=== PATIENT | male | born 1960 | race Caucasian/White ===

== ENCOUNTER 2016-03-24 15:26 | Emergency (ER) | payer BC ==
[2014-12-11 17:31] VITALS: BMI 26.5
[~2016-03-24 15:26] MED LIST: ATIVAN0.5 MG PO; BACTROBAN NASAL1 GM NASAL; BUSPAR 15 MG TA15 MG PO; CARDURA2 MG PO; CATAPRES0.1 MG PO; CELEXA40 MG PO; COZAAR100 MG PO; ELIQUIS2.5 MG PO; GLUCOPHAGE500 MG PO; HYDROCHLOROTHIA25 MG PO; MS CONTIN30 MG PO; NAPROSYN500 MG PO; NORVASC10 MG PO; OXYCODONE HCL5 MG PO; PLAVIX75 MG PO; ZYLOPRIM300 MG PO
[2016-03-24 15:59] LABS: BASOPHILS 0.5 % (0.0-2.0); HEMOGLOBIN 11.9 g/dL (13.5-17.5); IMMATURE GRANULOCYTES 0.2 % (0-5); LYMPHOCYTES 20.2 % (15-50); MCH 26.2 pg (26.0-34.0); MCV 76.9 fL (80.0-100.0); MEAN PLATELET VOLUME 9.1 fL (7.4-10.4); MONOCYTES 6.6 % (2-11); NEUTROPHILS 70.5 % (40-80); PLATELET COUNT 203 10x3/uL (130-400); RBC 4.55 10x6/uL (4.20-6.10)
[2016-03-24 16:37] LABS: ALKALINE PHOSPHATASE 69 U/L (46-116); ALT (SGPT) 13 U/L (10-68); BILIRUBIN - TOTAL 0.58 mg/dL (0.2-1.3); CALC OSMOLALITY 282 mosm/kg (275-300); CALCIUM 9.4 mg/dL (8.5-10.1); CARBON DIOXIDE 29.3 mmol/L (21.0-32.0); CHLORIDE - SERUM 103 mmol/L (98-107); CREATININE - SERUM 1.4 mg/dL (0.6-1.3); POTASSIUM - SERUM 3.5 mmol/L (3.5-5.1); PROTEIN - SERUM 7.5 g/dL (6.4-8.2); SODIUM 141 mmol/L (136-145); UREA NITROGEN 12 mg/dL (7-18); eGFR NON AFRICAN AMERICAN 56 mL/min (90-120)
[2016-03-24 16:47] LABS: CHOL - HDL RATIO 3.5 ratio (2.3-4.9); CHOLESTEROL, TOTAL 151 mg/dL (0-200); CKMB 0.5 U/L (0.0-3.6); CREATINE KINASE 50 UL (21-232); GLUCOSE 132 mg/dL (74-106); HDL CHOLESTEROL 43 mg/dL (32-96); LDL CHOLESTEROL 87 mg/dL (0-100); TRIGLYCERIDE 106 mg/dL (30-200)
[2016-03-24 16:48] LABS: TROPONIN-I < 0.017 ng/mL (0.000-0.060)
== END 2016-03-24 18:36 | disposition home or self-care (01) ==
LOC: D.ER 15:26
PROVIDERS: Emergency Medicine
DX: R07.9 Chest pain, unspecified (principal); I25.10 Atherosclerotic heart disease of native coronary artery without angina pectoris; F41.9 Anxiety disorder, unspecified; D64.9 Anemia, unspecified; S37.009A Unspecified injury of unspecified kidney, initial encounter; X58.XXXA Exposure to other specified factors, initial encounter; Y93.89 Activity, other specified; Y92.89 Other specified places as the place of occurrence of the external cause; I10 Essential (primary) hypertension; E11.9 Type 2 diabetes mellitus without complications

== ENCOUNTER 2016-04-15 13:43 | Observation (INO) | payer BC ==
[~2016-04-15] VITALS: Ht 188 cm; Wt 91.2 kg
--- NOTE | ~2016-04-15 | HEMODYNAMI ---
PATIENT:JAELYN BAKER MEDICAL RECORD: [id number] : 64 [id number] ADMISSION DATE: 04/15/16 Generatedon:04/16/20168:09 Patient name: JAELYN BAKER Patient #: [id number] SSN: [id number] : 1960 Date of study: 04/16/2016 Page: Of Hemodynamic Procedure Report Patient Data Patient Demographics Procedure consent was obtained First Name: JAELYN Gender: Male Last Name: OLIVIA : 1960 [facility] Initial: HAL Age: 56 year(s) Patient #: [id number] Race: SSN: [id number] Additional ID: [id number] Contact details Address: [address] [place] [address] COURT State: [place] City: [place] Zip code: [address] Admission Admission Data Admission Date: 04/15/2016 Admission Time: 17:03 Arrival Date: 04/15/2016 Arrival Time: 17:03 Admit Source: Other Insurance Payor: Private Room #: [id number] health insurance Procedure Procedure Types Cath Procedure Diagnostic Procedure [facility] w/Coronaries PCI Procedure Coronary Stent Initial Miscellaneous Procedures Moderate Sedation up to 30 minutes Procedure Description Procedure Date Procedure Date: 04/16/2016 Procedure Start Time: 7:53 Procedure End Time: 8:06 Procedure Staff Name Function Hallie García RT Scrub Tom Evans RN Nurse Hayden Collado MD Performing Physician Erika Lea RT Monitor Procedure Data Cath Procedure Fluoroscopy Diagnostic fluoroscopy Total fluoroscopy Time: 2.8 time: 2.8 min min Diagnostic fluoroscopy Total fluoroscopy dose: 466 dose: 466 mGy mGy Contrast Material Contrast Material Type Amount (ml) Isovue 300 64 Entry Location Entry Primary Successful Side Size Upsize Upsize Entry Closure Mehta ccessful Closure Location (Fr) 1 (Fr) 2 (Fr) Remarks Device Remarks Radial Right 6 Fr Mechanical artery Short Compression Estimated blood loss: 10 ml Diagnostic catheters Device Type Used For End Catheter Placement Cordis RBL 4 catheter (NO LV Angiography CHARGE) Cordis RBL 4 catheter (NO Right Coronary CHARGE) Angiography Procedure Complications No complications Procedure Medications Medication Administration Route Dosage Oxygen NC 2 l/min Lidocaine 2% added to field 20 Heparin Flush Bag added to field 2 bags (1000units/500ml NS) 0.9% NaCl I.V. 100 ml/hr Versed I.V. 1 mg Fentanyl I.V. 50 mcg Zofran I.V. 4 mg Versed I.V. 1 mg Fentanyl I.V. 50 mcg Radial Cocktail I.A. 1 syringe (Verapomil 2mg/Nitro 400mcg/Heparin 1500units) Versed I.V. 1 mg Fentanyl I.V. 50 mcg Heparin Bolus I.V. 4000 units Integrilin (Bolus I.V. 8.5 ml 2mg/ml) Versed I.V. 1 mg Fentanyl I.V. 50 mcg Hemodynamics Rest Heart Rate: 46 (bpm) Snapshots Pre Cath Intra NCS Post Cath Vital Signs Time Heart Resp SPO2 NIBP (mmHg) Rhythm Pain Sedation Rate (ipm) (%) Status Level (bpm) 7:39:18 46 15 100 163/100(121) NSR 0 (11) 10(A) , No pain 7:44:32 46 16 100 174/84(131) NSR 0 (11) 10(A) , No pain 7:48:51 42 16 99 144/88(104) NSR 0 (11) 10(A) , No pain 7:54:06 47 15 99 132/81(94) NSR 0 (11) 10(A) , No pain 7:58:22 63 15 97 124/68(90) NSR 0 (11) 9(A) , No pain 8:02:36 57 16 97 125/68(88) NSR 0 (11) 9(A) , No pain 8:06:50 53 16 99 126/72(92) NSR 0 (11) 10(A) , No pain Medications Time Medication Route Dose Verified Delivered Reason Notes Effectiveness by by 7:42:34 Zofran I.V. 4 mg Hayden Santos Per physician pt Tobias Evans RN states vomits with sedation 7:43:14 Oxygen NC 2 l/min Hayden Santos used for Tobias Evans RN procedure 7:43:21 Lidocaine 2% added 20ml Hayden Blake for local to vial Tobias Collado MD anesthetic field 7:43:27 Heparin Flush added 2 bags Hayden Blake used for Bag to Tobias Collado MD procedure (1000units/500ml field NS) 7:43:35 0.9% NaCl I.V. 100 Hayden Santos Per physician ml/hr Tobias Evans RN 7:46:18 Versed I.V. 1 mg Hayden Santos for sedation Tobias Evans RN 7:46:24 Fentanyl I.V. 50 mcg Hayden Santos for sedation Tobias Evans RN 7:51:28 Versed I.V. 1 mg Hayden Santos for sedation Tobias Evans RN 7:51:32 Fentanyl I.V. 50 mcg Hayden Santos for sedation Tobias Evans RN 7:54:18 Radial Cocktail I.A. 1 Hayden Blake for (Verapomil syringe Tobias Collado MD vasodilation 2mg/Nitro 400mcg/Hepari 7:54:22 Versed I.V. 1 mg Hayden Santos for sedation Tobias Evasn RN 7:54:26 Fentanyl I.V. 50 mcg Hyaden Santos for sedation Tobias Evans RN 7:56:00 Fentanyl I.V. 50 mcg Hayden Santos for sedation Tobias Evans RN 7:56:58 Versed I.V. 1 mg Hayden Santos for sedation Tobias Evans RN 7:57:51 Heparin Bolus I.V. 4000 Hayden Santos for verif ied units Tobias Evans RN anticoagulation with dr collado 8:00:51 Integrilin I.V. 8.5 ml Hayden Santos for Waste d (Bolus 2mg/ml) Tobias Evans RN antiplatelet 1.5 ml therapy of vial Procedure Log Time Note 7:15:06 Tom Evans RN sent for patient. Start room use. 7:24:48 Informed consent obtained and on chart 7:24:53 Diagnostic Cath Status : Elective 7:25:13 Time tracking: Regular hours 7:25:17 Plan of Care:Hemodynamics will remain stable., Cardiac rhythm will remain stable., Comfort level will be maintained., Respiratory function will remain adequate., Patient/ family verbilizes understanding of procedure., Procedure tolerated without complication., Recovers from procedure without complications.. 7:25:57 Admit Source: Other 7:26:00 Arrival Date: 04/15/2016 5:03:00 PM 7:26:21 Insurance Payor : Private health insurance 7:38:13 Vital chart was started 7:42:23 Patient received from Med II to CCL 2 Alert and oriented. Tansferred to table in Supine position. 7:42:24 Correct patient and procedure confirmed by team. 7:42:24 Warm blankets applied, and michele hugger turned on for patient comfort. 7:42:25 ECG and BP/O2 sat monitors applied to patient. 7:42:26 Baseline sample Acquired. 7:42:30 Rhythm: sinus rhythm 7:42:34 Zofran 4 mg I.V. was given by Tom Evans RN; Per physician; pt states vomits with sedation 7:42:37 Full Disclosure recording started 7:42:42 H&P Date Dictated: 04/16/2016 New H&P dictated by physician.. 7:42:43 Pre-op teaching completed and patient verbalized understanding. 7:42:43 Pre-procedure instructions explained to patient. 7:42:45 Family in waiting room. 7:42:46 Patient NPO since Midnight. 7:42:52 Is the patient allergic to Iodine/contrast media? No. 7:42:53 Is patient on blood thinner?Yes 7:42:53 Was the patient premedicated? No 7:42:56 ACC The patient was administered the following blood thiners within the last 24 hours: ACCPlavix 7:43:04 Patient diabetic? No. 7:43:08 Previous problem with sedation/anesthesia? No ? 7:43:10 Snore? Yes 7:43:11 Sleep apnea? No 7:43:12 Deviated septum? No 7:43:13 Opens mouth fully? Yes 7:43:14 Oxygen 2 l/min NC was given by Tom Evans RN; used for procedure; 7:43:14 Sticks out tongue? Yes 7:43:16 Airway obstruction? No ? 7:43:20 Dentures? Yes in tight 7:43:21 Lidocaine 2% 20ml vial added to field was given by Hayden Collado MD; for local anesthetic; 7:43:23 Pre procedure: right dorsailis pedis pulse 1+ Palpable, but thready & weak; easily obliterated 7:43:27 Patient pain scale 0/10 ?. 7:43:27 Heparin Flush Bag (1000units/500ml NS) 2 bags added to field was given by Hayden Collado MD; used for procedure; 7:43:32 IV patent on arrival in left forearm with 0.9% NaCl at KVO. 7:43:35 0.9% NaCl 100 ml/hr I.V. was given by Tom Evans RN; Per physician; 7:43:37 Lab results completed and on chart. 7:43:41 Right Radial & Right Groin area was prepped with chlora-prep and draped in sterile fashion 7:43:42 Alarms reviewed by R. N. 7:43:43 Sharps counted by scrub and verified by R.N. 7:44:44 --------ALL STOP TIME OUT------ 7:44:46 Final Timeout: patient, procedure, and site verified with staff and physician. All members of the team are in agreement. 7:45:00 Right Radial & Right Groin site verified by team. 7:45:23 Sedation plan: IV Moderate Sedation Versed, Fentanyl 7:45:36 Physical assessment completed. ASA score P 2 - A patient with mild systemic disease as per Hayden Collado MD. 7:46:18 Versed 1 mg I.V. was given by Tom Evans RN; for sedation; 7:46:24 Fentanyl 50 mcg I.V. was given by Tom Evans RN; for sedation; 7:49:37 Use device set Radial Dx 7:49:38 Acist Syringe opened to sterile field. 7:49:39 Medline Cath Pack opened to sterile field. 7:49:40 Terumo 6Fr Slender Glidesheath opened to sterile field. 7:49:40 Bag Decanter opened to sterile field. 7:49:41 Acist Hand Control opened to sterile field. 7:49:41 St Kristofer 260cm J .035 wire opened to sterile field. 7:49:42 Tegaderm 4 x 4 opened to sterile field. 7:49:42 Acist Manifold opened to sterile field. 7:51:28 Versed 1 mg I.V. was given by Tom Evans RN; for sedation; 7:51:32 Fentanyl 50 mcg I.V. was given by Tom Evans RN; for sedation; 7:53:14 Zero performed for pressure channel P1 7:53:24 Baseline sample Acquired. 7:53:30 Procedure started. 7:53:35 Local anesthetic to right radial artery with Lidocaine 2% by Hayden Collado MD.INITIAL ACCESS ONLY 7:53:49 A 6 Fr Short sheath was inserted into the Right Radial artery 7:54:18 A Cordis RBL 4 catheter (NO CHARGE) was advanced over the wire and used for LV Angiography. 7:54:18 Radial Cocktail (Verapomil 2mg/Nitro 400mcg/Heparin 1500units) 1 syringe I.A. was given by Hayden Collado MD; for vasodilation; 7:54:22 Versed 1 mg I.V. was given by Tom Evans RN; for sedation; 7:54:26 Fentanyl 50 mcg I.V. was given by Tom Evans RN; for sedation; 7:55:01 LV gram done using HADDAD 7:55:02 LV hemodynamics recorded. 7:55:07 Injector settings: Ml/sec: 5, Volume: 15, 7:55:11 EF : 55 % 7:56:00 Fentanyl 50 mcg I.V. was given by Tom Evans RN; for sedation; 7:56:02 A Cordis RBL 4 catheter (NO CHARGE) was advanced over the wire and used for Right Coronary Angiography. 7:56:23 Catheter removed. 7:56:38 Cordis 6FR XBLAD 3.5 guide catheter opened to sterile field. 7:56:55 6 Fr XBLAD 3.5 guide catheter was inserted over the wire 7:56:58 Versed 1 mg I.V. was given by Tom Evans RN; for sedation; 7:57:51 Heparin Bolus 4000 units I.V. was given by Tom Evans RN; for anticoagulation; verified with dr collado 7:58:10 MailPix BasixCompak Inflation Kit opened to sterile field. 7:58:11 Tucker Whisper J 300cm 0.014 guide wire opened to sterile field. 7:59:44 Whisper wire advanced. 8:00:51 Integrilin (Bolus 2mg/ml) 8.5 ml I.V. was given by Tom Evans RN; for antiplatelet therapy; Wasted 1.5 ml of vial 8:01:12 Inflation Number: 1 A Medtronic Resolute 2.5 X 22 stent was prepped and advanced across the Mid LAD. The stent was deployed at 15 NARCISO for 0:11 (min:sec). 8:02:05 Wire removed. 8:02:05 Stent catheter was removed intact over wire. 8:02:06 Guide catheter removed. 8:02:14 Sheath removed intact; hemostasis achieved with Mechanical Compression to the Right Radial artery. 8:02:23 Terumo TR Band Standard opened to sterile field. 8:02:26 Procedure ended.(Physican Out) 8:02:40 Fluoroscopy time 02.80 minutes. 8:02:50 Fluoroscopy dose: 466 mGy 8:02:50 Flurop Dose total: 466 8:02:54 Contrast amount:Isovue 300 64ml. 8:02:55 Sharps counted by scrub and verified by R.N. 8:02:59 TR band inflated with 12cc of air. 8:03:00 Insertion/operative site no bleeding no hematoma. 8:03:13 Post right radial artery:stable, clean and dry 8:03:15 Post Procedure Pulses reassessed and unchanged 8:03:18 Post-procedure physical assessment completed. ASA score P 2 - A patient with mild systemic disease as per Hayden Collado MD. 8:03:21 Post procedure rhythm: unchanged. 8:03:23 Estimated blood loss: 10 ml 8:03:24 Post procedure instruction explained to patient.Patient verbalizes understanding. 8:03:25 Patient needs reinforcement of post procedure teaching. 8:03:38 Procedure type changed to Cath procedure, Diagnostic procedure, LHC, LHC w/Coronaries, PCI procedure, Coronary Stent Initial, Miscellaneous Procedures, Moderate Sedation up to 30 minutes 8:03:46 Procedure Complication : No complications 8:03:50 See physician's report for complete and final results. 8:06:30 Procedure and supply charges have been captured, reviewed, submitted and are correct. 8:06:32 Vital chart was stopped 8:06:36 Report given to PCU. 8:06:39 Patient transfered to PCU with Bed. 8:06:51 Full Disclosure recording stopped 8:06:51 Procedure ended. 8:06:56 End room use (Document Last) Intervention Summary Intervention Notes Time ActionType Lesion and Equipment Action# Pressure Duration Attributes Used 8:01:12 Place stent Mid LAD Medtronic 1 15 00:12 Resolute 2.5 X 22 stent Device Usage Item Name Manufacture Quantity Catalog Hospital Part Current Minimal Lot# / Number Charge Number Stock Stock Serial# Code Acist Acist 1 64351 047506 174547 324001 20 Syringe Medical Systems Inc Medline Cardinal 1 [id number] 195256 02929 027012 5 Cath Pack Health Bag Microtek 1 2002S 297518 74164 162870 5 Decanter Medical Inc. Terumo 6Fr Terumo 1 [id number] 117641 726706 607248 [address] Krist[address] St Kristofer 1 810359 255556 045892 223309 30 260cm J .035 wire Acist Hand Acist 1 28927 491662 922039 955891 5 Control Medical Systems Inc Acist Acist 1 60723 298876 190614 010557 5 Manifold Medical Systems Inc Tegaderm 4 3M 1 1626W 373624 715364 375332 5 x 4 Cordis RBL Cardinal 1 [id number] 349763 356995 5 4 catheter Health (NO CHARGE) Cordis 6FR Cardinal 1 [id number] 519659 604709 513813 10 XBLAD 3.5 Health guide catheter Merit Merit 1 [id number] 149776 568812 211729 15 BasixCompak Medical Inflation Kit Tucker Tucker 1 [id number] 889775 640696 335671 5 Whisper J Vascular 300cm 0.014 guide wire Medtronic Medtronic 1 [id number] 660958 426066 3 [id number] Resolute 2.5 X 22 stent Terumo TR Terumo 1 [id number] 066447 906566 631730 40 Band Standard Signature Audit [place] Stage Time Signature Unsigned Intra-Procedure 04/16/2016 Erika 8:09:17 AM Counts RT(R) Signatures Monitor : Erika Signature : Counts RT Date : Time : [id number] [place] [address]
[2016-04-15 14:16] LABS: BASOPHILS 0.4 % (0.0-2.0); EOSINOPHILS 1.5 % (0-7); HEMATOCRIT 32.1 % (42.0-54.0); HEMOGLOBIN 10.8 g/dL (13.5-17.5); IMMATURE GRANULOCYTES 0.2 % (0-5); MCH 26.2 pg (26.0-34.0); MCHC 33.6 g/dL (31.0-37.0); MCV 77.9 fL (80.0-100.0); MEAN PLATELET VOLUME 9.3 fL (7.4-10.4); MONOCYTES 5.7 % (2-11); NEUTROPHILS 67.2 % (40-80); PLATELET COUNT 195 10x3/uL (130-400); RBC 4.12 10x6/uL (4.20-6.10); RDW 14.8 % (11.5-14.5); WBC 4.8 10x3/uL (4.8-10.8)
[2016-04-15 14:51] LABS: ALBUMIN 3.8 g/dL (3.4-5.0); ALKALINE PHOSPHATASE 63 U/L (46-116); ALT (SGPT) 17 U/L (10-68); CALC OSMOLALITY 283 mosm/kg (275-300); CALCIUM 8.2 mg/dL (8.5-10.1); CARBON DIOXIDE 25.9 mmol/L (21.0-32.0); CHLORIDE - SERUM 101 mmol/L (98-107); CREATININE - SERUM 1.2 mg/dL (0.6-1.3); POTASSIUM - SERUM 3.3 mmol/L (3.5-5.1); PROTEIN - SERUM 6.6 g/dL (6.4-8.2); SODIUM 140 mmol/L (136-145); UREA NITROGEN 13 mg/dL (7-18); eGFR NON AFRICAN AMERICAN 67 mL/min (90-120)
[2016-04-15 15:03] LABS: CHOL - HDL RATIO 3.3 ratio (2.3-4.9); CHOLESTEROL, TOTAL 148 mg/dL (0-200); CKMB 0.5 U/L (0.0-3.6); CREATINE KINASE 48 UL (21-232); HDL CHOLESTEROL 45 mg/dL (32-96); LDL CHOLESTEROL 81 mg/dL (0-100); LDL-HDL RATIO 1.8 ratio (1.5-3.5); TRIGLYCERIDE 113 mg/dL (30-200); TROPONIN-I < 0.017 ng/mL (0.000-0.060)
[2016-04-15 15:09] LABS: GLUCOSE 183 mg/dL (74-106)
--- NOTE | 2016-04-15 17:42 | NUR ---
TRANSFER FROM ER BY W/C. GILINTED TO ROOM. CALL LIGHT IN REACH. WILL CONT. PLAN OF CARE.
[2016-04-15 18:01] VITALS: BP 154/82; BMI 24.4
[2016-04-15] MEDS ORDERED: NITROSTAT0.4 MG SL (18:13)
[2016-04-15] MEDS ORDERED: KLONOPIN0.5 MG PO (18:14)
--- NOTE | 2016-04-15 19:53 | NUR ---
RESUMED CARE OF PT, LYING IN BED RESPIRATIONS EVEN AND UNLABORED ON 2LPM VIA NC. LEFT AC INFUSING NS @ 75. MORPHINE 4MG GIVEN FOR CHEST PAIN 7:10. 51 SB ON TELEMETRY. CALL LIGHT IN REACH. WILL CONTINUE TO MONITOR. SEE NURSE ASSESSMENT.
[2016-04-15 21:56] VITALS: BP 176/89
--- NOTE | 2016-04-15 23:15 | NUR ---
MORPHINE 4MG IVP FOR CHEST PAIN 6:10. PLAN OF CARE DISCUSSED. WILL CONTINUE TO MONITOR.
--- NOTE | 2016-04-16 00:13 | NUR ---
COMMUNICATIONS PLANNER AT BEDSIDE TO OBTAIN VITALS, CALL LIGHT IN REACH. WILL CONTINUE WITH PLAN OF CARE.
[2016-04-16 01:17] VITALS: BP 170/104
[2016-04-16 05:11] VITALS: BP 173/97
--- NOTE | 2016-04-16 06:04 | NUR ---
NO CHANGES FROM PREVIOUS ASSESSMENT, REMAINS NPO. CALL LIGHT IN REACH. WILL CONTINUE TO MONITOR.
[2016-04-16 07:03] LABS: BASOPHILS 0.7 % (0.0-2.0); EOSINOPHILS 5.4 % (0-7); HEMATOCRIT 33.3 % (42.0-54.0); HEMOGLOBIN 11.1 g/dL (13.5-17.5); IMMATURE GRANULOCYTES 0.2 % (0-5); LYMPHOCYTES 40.2 % (15-50); MCH 26.1 pg (26.0-34.0); MCHC 33.3 g/dL (31.0-37.0); MCV 78.4 fL (80.0-100.0); MEAN PLATELET VOLUME 10.2 fL (7.4-10.4); MONOCYTES 7.4 % (2-11); NEUTROPHILS 46.1 % (40-80); PLATELET COUNT 219 10x3/uL (130-400); RBC 4.25 10x6/uL (4.20-6.10); RDW 14.9 % (11.5-14.5); WBC 5.4 10x3/uL (4.8-10.8)
[2016-04-16 07:08] LABS: ANION GAP 13.7 mmol/L (8-16); CALCIUM 8.4 mg/dL (8.5-10.1); CARBON DIOXIDE 27.8 mmol/L (21.0-32.0); CREATININE - SERUM 1.2 mg/dL (0.6-1.3); POTASSIUM - SERUM 3.5 mmol/L (3.5-5.1)
--- NOTE | 2016-04-16 07:30 | NUR ---
PRE-OPS GIVEN. TO OCCUPATIONAL THERAPIST ASSISTANTS BY BED.
[2016-04-16 07:39] VITALS: BP 173/88
--- NOTE | 2016-04-16 08:26 | NUR ---
BACK FROM MUSIC THEORY PROFESSOR. VS WNL. RIGHT WRIST STABLE WITH TR BAND INTACT. WILL MONITOR.
--- NOTE | 2016-04-16 11:52 | NUR ---
TR BAND DCD WOTHOUT BLEEDING OR HEMATOMA NOTED. C/O C/P. DR. BOLAND NOTIFIED. [place] ORDERED X 1. WILL MONITOR.
[2016-04-16 12:11] VITALS: BP 128/71
[2016-04-16 13:03] VITALS: Ht 188 cm; Wt 91.2 kg
[2016-04-16] MEDS ORDERED: ASPIRIN81 MG PO (13:25)
[2016-04-16] MEDS ORDERED: PLAVIX75 MG PO (13:25)
--- NOTE | 2016-04-16 14:06 | NUR ---
IV AND TELEMETRY DCD. DC PLANSGIVEN. UNDERSTANDING VOICED. ESCORTED TO CAR BYW/C.
--- NOTE | 2016-04-27 10:08 | OP ---
PATIENT NAME: JAELYN BAKER MEDICAL RECORD: [id number] :64 LOCATION:D.M2 D.2119 ADMISSION DATE:04/15/16 SURGEON: SHIRAZ BOLAND MD DATE OF OPERATION: 04/16/2016 PROCEDURES: 1. PTCA stent LAD. 2. Left heart catheterization. 3. Selective coronary angiography. 4. Left ventriculogram. INDICATION: Angina and coronary artery disease. PROCEDURE IN DETAIL: After informed consent was obtained and after a detailed explanation of the risks, benefits as well as alternative therapies, the patient elected to proceed with angiogram and angioplasty. The right femoral area was prepped and draped in normal sterile fashion. The right radial area was prepped and draped in normal sterile fashion. The right radial artery was cannulated via modified Seldinger technique with placement of 6-Yoruba sheath. All catheters exchanged through this sheath. FINDINGS: Left ventriculogram was performed in the standard 30-degree HADDAD view reveals good cardiac wall motion throughout all segments. Overall ejection fraction estimated 60%. SELECTIVE CORONARY ANGIOGRAPHY: 1. Left main showed no significant angiographic disease. 2. Left anterior descending has a previously placed stent that has a 90% to 95% in-stent restenosis. 3. Left circumflex shows moderate irregularities, but no flow-limiting stenosis. 4. Right coronary is very large, dominant with no significant disease. PTCA STENT OF THE LAD: The stent used was a 2.5 x 22 mm Resolute. Result was 0% residual stenosis. OVERALL IMPRESSION: Successful percutaneous transluminal coronary angioplasty stent of the left anterior descending going from 95% initial stenosis to 0% residual. TRANSINT:[id number] Voice Confirmation ID: [id number] DOCUMENT ID: [id number] SHIRAZ BOLAND MD at 1008 CC: [id number] DICTATION DATE: 04/16/16 0807 USER EXPERIENCE ARCHITECT: 04/16/16 1629 DIS IN 04/16/16 [address] [place] [address]
--- NOTE | 2016-04-27 10:08 | DS ---
PATIENT:JAELYN BAKER :64 MEDICAL RECORD: [id number] DISCHARGE SUMMARY ADMISSION DATE: 04/15/16 DISCHARGE DATE: 04/16/16 DISCHARGE DIAGNOSES: 1. Unstable angina. 2. Coronary artery disease. 3. Percutaneous transluminal coronary angioplasty stent of left anterior descending this admission. HOSPITAL COURSE: This is a gentleman who presents with anginal symptomatology and found to have critical disease of the LAD, underwent successful PTCA stent of the LAD, had an uneventful postop course, no further angina and discharged home with the addition of aspirin and Plavix to his medical regimen. He will follow up with [facility] in 1 month. TRANSINT:[id number] Voice Confirmation ID: [id number] DOCUMENT ID: [id number] SHIRAZ BOLAND MD at 1008 CC: [id number] DICTATION DATE: 04/16/16 0805 CERTIFIED MEDICAL CODER: 04/16/16 2225 DIS IN 04/16/16 [id number] [place] [address]
--- NOTE | 2016-04-27 10:08 | CN ---
PATIENT NAME:JAELYN BAKER MEDICAL RECORD: [id number] : 64 LOCATION:D. D.2119 ADMIT DATE: 04/15/16 ACCOUNT: [id number] CONSULTING PHYSICIAN: SHIRAZ BOLAND MD REFERRING PHYSICIAN: CIERA RICKETTS MD DATE OF CONSULTATION: 04/16/2016 ADMITTING DIAGNOSES: 1. Stable angina. 2. Coronary artery disease. 3. Previous percutaneous transluminal coronary angioplasty stent. 4. Hypertension. HISTORY OF PRESENT ILLNESS: This is a gentleman with a past history of coronary artery disease with previous PTCA stent 2 years ago, who has been having 1 month of increasing chest pain, has dramatically increased over the last few days, he is having rest angina. His EKG is with nonspecific ST-T abnormalities. Troponin is normal. Continues to have episodes of pain compatible with angina just like that of his previous angina prior to the PTCA stent. PHYSICAL EXAMINATION: GENERAL APPEARANCE: Well-nourished, well-developed, appears stated age. Level of distress, comfortable. PSYCHIATRIC: Mental status, alert, normal affect. Orientation, oriented to time, place and person. EYES: Lids and conjunctiva, noninjected. No discharge, no pallor. ENT: Lips, teeth, gums, normal dentition. Oropharynx, no cyanosis, no pallor. NECK: Carotid arteries, bilateral normal upstroke, no bruits, no thrills. JUGULAR VEINS: No jugular venous pressure or distention. CERVICAL LYMPH NODES: Nontender, nonenlarged. THYROID: Not enlarged. Nontender. No nodules. LUNGS: Respiratory effort, unlabored. CHEST: Normal curvature. No thoracic deformity. No chest wall tenderness. Percussion, resonant. Auscultation, clear. No wheezes, no rales, no rhonchi. CARDIOVASCULAR: Precordial exam, nondisplaced. No heaves or pericardial thrills. Rate and rhythm, regular. Heart sounds, normal S1, normal S2. No S3, no gallop, no rub. Systolic murmur, not heard. Diastolic murmur, not heard. EXTREMITIES: No cyanosis, no edema. Peripheral pulses, full and equal in all extremities, except as noted. No bruits appreciated. ABDOMEN: Soft, nondistended. Normal aorta. No bruit. Nontender. No masses. Liver, nontender, no hepatomegaly. Spleen, nontender, no splenomegaly. MUSCULOSKELETAL: No joint tenderness. No joint swelling. No erythema. NEUROLOGICAL: Normal gait, normal strength, normal tone. SKIN: Warm and dry. REVIEW OF SYSTEMS: The patient reports easy bruising but reports no swollen glands. The patient reports no fever, no night sweats, no significant weight gain, no significant weight loss. No significant exercise tolerance. The patient reports no dry eyes, no irritation, no vision change. Patient reports no difficulty hearing and no ear pain. Patient reports no frequent nose bleeds or nose and sinus problems. Patient reports on arm pain on exertion. No shortness of breath while lying down. No history of heart murmur. Patient reports no cough, no wheezing or coughing up blood. Patient reports no abdominal pain, no vomiting. Normal appetite. No diarrhea and not vomiting blood. No nausea and no constipation. Patient reports no incontinence. No CONSULT REPORT [id number] WHITEJAELYN difficulty urinating. No hematuria. No increased frequency. Patient reports no muscle aches. No weakness, no arthralgias, no back pain. No swelling of the extremities. Patient reports no abnormal mole, no jaundice, no rashes. Reports no loss of consciousness. No weakness and no numbness. No seizures, dizziness, or headaches. The patient reports no depression, no sleep disturbance, feeling safe in a relationship and no alcohol abuse. Patient reports on fatigue. Reports no runny nose or sinus pressure. No itching, no hives, and no frequent sneezing. OVERALL IMPRESSION: Unstable angina, escalating fashion, most likely he has recurrent hemodynamically significant coronary artery disease. We will proceed with coronary angiography. Further care depends upon findings of the angiography. TRANSINT:[id number] Voice Confirmation ID: [id number] DOCUMENT ID: [id number] SHIRAZ BOLAND MD at 1008 CC: [id number] DICTATION DATE: 04/16/16712 ELEVATOR ATTENDANT: 04/16/16 1332 DIS IN 04/16/16 [facility] [address] [id number]
== END 2016-04-16 14:17 | disposition home or self-care (01) ==
LOC: D.ER 13:43 → D.M2 17:03 → OBSVTIME 17:03 → D.M2 04-16 14:17
PROVIDERS: Emergency Medicine; Internal Medicine Interventional Cardiology; ADMIT Emergency Medicine
DX: I25.110 Atherosclerotic heart disease of native coronary artery with unstable angina pectoris (principal); Z95.5 Presence of coronary angioplasty implant and graft; I10 Essential (primary) hypertension; E78.5 Hyperlipidemia, unspecified; E11.9 Type 2 diabetes mellitus without complications; F41.9 Anxiety disorder, unspecified; D63.8 Anemia in other chronic diseases classified elsewhere

== ENCOUNTER 2016-04-17 18:28 | Emergency (ER) | payer BC ==
[2016-04-16 13:03] VITALS: BMI 25.8
[~2016-04-17 18:28] MED LIST changes: +ASPIRIN81 MG PO; +KLONOPIN0.5 MG PO; +NITROSTAT0.4 MG SL
[2016-04-17 19:12] LABS: BASOPHILS 0.6 % (0.0-2.0); EOSINOPHILS 2.9 % (0-7); HEMATOCRIT 33.6 % (42.0-54.0); HEMOGLOBIN 11.3 g/dL (13.5-17.5); LYMPHOCYTES 25.9 % (15-50); MCH 26.2 pg (26.0-34.0); MCHC 33.6 g/dL (31.0-37.0); MEAN PLATELET VOLUME 9.8 fL (7.4-10.4); MONOCYTES 8.6 % (2-11); PLATELET COUNT 225 10x3/uL (130-400); RBC 4.31 10x6/uL (4.20-6.10); RDW 14.5 % (11.5-14.5); WBC 4.9 10x3/uL (4.8-10.8)
[2016-04-17 19:34] LABS: ALBUMIN 3.9 g/dL (3.4-5.0); ALKALINE PHOSPHATASE 63 U/L (46-116); ALT (SGPT) 16 U/L (10-68); BILIRUBIN - TOTAL 0.29 mg/dL (0.2-1.3); CALC OSMOLALITY 283 mosm/kg (275-300); CALCIUM 8.3 mg/dL (8.5-10.1); CARBON DIOXIDE 27.4 mmol/L (21.0-32.0); CHLORIDE - SERUM 104 mmol/L (98-107); CREATININE - SERUM 1.2 mg/dL (0.6-1.3); GLUCOSE 131 mg/dL (74-106); POTASSIUM - SERUM 3.2 mmol/L (3.5-5.1); PROTEIN - SERUM 6.8 g/dL (6.4-8.2); SODIUM 142 mmol/L (136-145); UREA NITROGEN 11 mg/dL (7-18); eGFR NON AFRICAN AMERICAN 67 mL/min (90-120)
[2016-04-17 19:39] LABS: CHOL - HDL RATIO 3.7 ratio (2.3-4.9); CHOLESTEROL, TOTAL 157 mg/dL (0-200); CKMB 0.4 U/L (0.0-3.6); CREATINE KINASE 64 UL (21-232); HDL CHOLESTEROL 42 mg/dL (32-96); LDL CHOLESTEROL 89 mg/dL (0-100); LDL-HDL RATIO 2.1 ratio (1.5-3.5); TRIGLYCERIDE 133 mg/dL (30-200)
[2016-04-17 19:42] LABS: TROPONIN-I < 0.017 ng/mL (0.000-0.060)
== END 2016-04-17 19:55 | disposition home or self-care (01) ==
LOC: D.ER 18:28
PROVIDERS: Emergency Medicine
DX: R07.89 Other chest pain (principal); I25.810 Atherosclerosis of coronary artery bypass graft(s) without angina pectoris; E11.9 Type 2 diabetes mellitus without complications

== ENCOUNTER 2016-04-20 20:28 | Emergency (ER) | payer BC ==
[2016-04-16 13:03] VITALS: BMI 25.8
[2016-04-20 21:29] LABS: BASOPHILS 0.4 % (0.0-2.0); EOSINOPHILS 1.7 % (0-7); HEMATOCRIT 32.7 % (42.0-54.0); HEMOGLOBIN 11.1 g/dL (13.5-17.5); IMMATURE GRANULOCYTES 0.3 % (0-5); LYMPHOCYTES 28.9 % (15-50); MCH 26.4 pg (26.0-34.0); MCHC 33.9 g/dL (31.0-37.0); MCV 77.9 fL (80.0-100.0); MEAN PLATELET VOLUME 9.6 fL (7.4-10.4); MONOCYTES 8.6 % (2-11); NEUTROPHILS 60.1 % (40-80); PLATELET COUNT 214 10x3/uL (130-400); RDW 14.9 % (11.5-14.5); WBC 7.2 10x3/uL (4.8-10.8)
[2016-04-20 21:47] LABS: ALKALINE PHOSPHATASE 56 U/L (46-116); ALT (SGPT) 20 U/L (10-68); BILIRUBIN - TOTAL 0.27 mg/dL (0.2-1.3); CALC OSMOLALITY 286 mosm/kg (275-300); CALCIUM 7.5 mg/dL (8.5-10.1); CARBON DIOXIDE 30.8 mmol/L (21.0-32.0); CHLORIDE - SERUM 103 mmol/L (98-107); CREATININE - SERUM 1.4 mg/dL (0.6-1.3); GLUCOSE 152 mg/dL (74-106); POTASSIUM - SERUM 3.2 mmol/L (3.5-5.1); PROTEIN - SERUM 6.9 g/dL (6.4-8.2); SODIUM 142 mmol/L (136-145); UREA NITROGEN 16 mg/dL (7-18); eGFR NON AFRICAN AMERICAN 56 mL/min (90-120)
[2016-04-20 21:59] LABS: CKMB 5.5 U/L (0.0-3.6); CREATINE KINASE 194 UL (21-232)
[2016-04-20 22:01] LABS: TROPONIN-I < 0.017 ng/mL (0.000-0.060)
== END 2016-04-20 22:55 | disposition home or self-care (01) ==
LOC: D.ER 20:28
PROVIDERS: Emergency Medicine
DX: R07.89 Other chest pain (principal); E11.9 Type 2 diabetes mellitus without complications

== ENCOUNTER 2016-04-25 22:32 | Emergency (ER) | payer BC ==
[2016-04-16 13:03] VITALS: BMI 25.8
[2016-04-25 23:04] LABS: BASOPHILS 0.3 % (0.0-2.0); EOSINOPHILS 6.2 % (0-7); HEMATOCRIT 35.4 % (42.0-54.0); HEMOGLOBIN 11.8 g/dL (13.5-17.5); IMMATURE GRANULOCYTES 0.2 % (0-5); LYMPHOCYTES 27.3 % (15-50); MCH 26.9 pg (26.0-34.0); MCHC 33.3 g/dL (31.0-37.0); MCV 80.6 fL (80.0-100.0); MEAN PLATELET VOLUME 9.2 fL (7.4-10.4); MONOCYTES 9.9 % (2-11); NEUTROPHILS 56.1 % (40-80); RBC 4.39 10x6/uL (4.20-6.10); RDW 14.6 % (11.5-14.5); WBC 6.4 10x3/uL (4.8-10.8)
[2016-04-25 23:08] LABS: PLATELET COUNT 162 10x3/uL (130-400)
[2016-04-25 23:23] LABS: ALBUMIN 3.8 g/dL (3.4-5.0); ANION GAP 12.6 mmol/L (8-16); BILIRUBIN - TOTAL 0.37 mg/dL (0.2-1.3); CALCIUM 8.7 mg/dL (8.5-10.1); CARBON DIOXIDE 28.2 mmol/L (21.0-32.0); CREATININE - SERUM 1.3 mg/dL (0.6-1.3); POTASSIUM - SERUM 3.8 mmol/L (3.5-5.1)
== END 2016-04-26 16:03 | disposition home or self-care (01) ==
LOC: D.ER 22:32
PROVIDERS: Emergency Medicine
DX: R10.11 Right upper quadrant pain (principal); J18.9 Pneumonia, unspecified organism; E11.9 Type 2 diabetes mellitus without complications

== ENCOUNTER 2016-06-14 17:41 | Emergency (ER) | payer BC ==
[2016-04-16 13:03] VITALS: BMI 25.8
[2016-06-14 18:08] LABS: BASOPHILS 0.3 % (0-2); EOSINOPHILS 1.9 % (0-7); HEMATOCRIT 36.1 % (42.0-54.0); HEMOGLOBIN 12.5 g/dL (13.5-17.5); IMMATURE GRANULOCYTES 0.2 % (0-5); MCH 27.8 pg (26.0-34.0); MCHC 34.6 g/dL (31.0-37.0); MCV 80.2 fL (80.0-100.0); MEAN PLATELET VOLUME 9.3 fL (7.4-10.4); MONOCYTES 8.6 % (2-11); RDW 12.9 % (11.5-14.5); WBC 6.3 10x3/uL (4.8-10.8)
[2016-06-14 18:11] LABS: PLATELET COUNT 231 10x3/uL (130-400)
[2016-06-14 18:30] LABS: ALKALINE PHOSPHATASE 77 U/L (46-116); ALT (SGPT) 19 U/L (10-68); BILIRUBIN - TOTAL 0.15 mg/dL (0.2-1.3); CALC OSMOLALITY 282 mosm/kg (275-300); CALCIUM 8.7 mg/dL (8.5-10.1); CARBON DIOXIDE 29.7 mmol/L (21.0-32.0); CHLORIDE - SERUM 105 mmol/L (98-107); CREATININE - SERUM 1.3 mg/dL (0.6-1.3); GLUCOSE 111 mg/dL (74-106); POTASSIUM - SERUM 3.3 mmol/L (3.5-5.1); PROTEIN - SERUM 7.4 g/dL (6.4-8.2); SODIUM 141 mmol/L (136-145); UREA NITROGEN 16 mg/dL (7-18); eGFR NON AFRICAN AMERICAN 61 mL/min (90-120)
[2016-06-14 18:36] LABS: CHOL - HDL RATIO 5.2 ratio (2.3-4.9); CHOLESTEROL, TOTAL 165 mg/dL (0-200); CKMB 0.9 U/L (0.0-3.6); CREATINE KINASE 51 UL (21-232); HDL CHOLESTEROL 32 mg/dL (32-96); LDL CHOLESTEROL 88 mg/dL (0-100); LDL-HDL RATIO 2.8 ratio (1.5-3.5); TRIGLYCERIDE 225 mg/dL (30-200); TROPONIN-I < 0.017 ng/mL (0.000-0.060)
== END 2016-06-14 20:30 | disposition home or self-care (01) ==
LOC: D.ER 17:41
PROVIDERS: Emergency Medicine
DX: R51 Headache (principal); E11.9 Type 2 diabetes mellitus without complications; N28.9 Disorder of kidney and ureter, unspecified

== ENCOUNTER 2017-05-12 15:49 | Emergency (ER) | payer BC ==
[2016-04-16 13:03] VITALS: BMI 25.8
[2017-05-12 17:02] LABS: APPEARANCE CLEAR (CLEAR); BILIRUBIN NEGATIVE (NEGATIVE); COLOR YELLOW (YELLOW); GLUCOSE NEGATIVE (NEGATIVE); KETONE NEGATIVE (NEGATIVE); NITRITE NEGATIVE (NEGATIVE); PROTEIN NEGATIVE (NEGATIVE); UROBILINOGEN NORMAL (NORMAL)
[2017-05-12 17:20] LABS: BASOPHILS 0.3 % (0-2); EOSINOPHILS 1.7 % (0-7); HEMATOCRIT 37.6 % (42.0-54.0); HEMOGLOBIN 12.9 g/dL (13.5-17.5); IMMATURE GRANULOCYTES 0.2 % (0-5); LYMPHOCYTES 20.2 % (15-50); MCH 27.7 pg (26.0-34.0); MCHC 34.3 g/dL (31.0-37.0); MCV 80.9 fL (80.0-100.0); MEAN PLATELET VOLUME 9.1 fL (7.4-10.4); MONOCYTES 6.3 % (2-11); NEUTROPHILS 71.3 % (40-80); RBC 4.65 10x6/uL (4.20-6.10); WBC 6.4 10x3/uL (4.8-10.8)
[2017-05-12 17:35] LABS: PLATELET COUNT 169 10x3/uL (130-400)
[2017-05-12 17:40] LABS: ANION GAP 12.6 mmol/L (8-16); BILIRUBIN - TOTAL 0.62 mg/dL (0.2-1.3); CALCIUM 8.5 mg/dL (8.5-10.1); CARBON DIOXIDE 26.6 mmol/L (21.0-32.0); CREATININE - SERUM 1.3 mg/dL (0.6-1.3); POTASSIUM - SERUM 4.2 mmol/L (3.5-5.1); PROTEIN - SERUM 7.3 g/dL (6.4-8.2)
== END 2017-05-12 20:21 | disposition home or self-care (01) ==
LOC: D.ER 15:49
PROVIDERS: Emergency Medicine
DX: R10.32 Left lower quadrant pain (principal); R10.31 Right lower quadrant pain; K62.5 Hemorrhage of anus and rectum; R11.2 Nausea with vomiting, unspecified; E11.9 Type 2 diabetes mellitus without complications

== ENCOUNTER → 2017-10-15 07:24 | Outpatient (CLI) | payer BC ==
[~2017-10-15] VITALS: Ht 188 cm; Wt 88.6 kg
--- NOTE | ~2017-10-15 | HEMODYNAMI ---
PATIENT:JAELYN BAKER MEDICAL RECORD: [id number] : 64 LOCATION:[facility] ADMISSION DATE: 10/15/17 Generatedon:10/15/201710:18 Patient name: JAELYN BAKER Patient #: [id number] SSN: [id number] : 1960 Date of study: 10/15/2017 Page: Of Hemodynamic Procedure Report Patient Data Patient Demographics Procedure consent was obtained First Name: JAELYN Gender: Male Last Name: OLIVIA : 1960 [facility] Initial: HAL Age: 57 year(s) Patient #: [id number] Race: SSN: [id number] Additional ID: [id number] Contact details [address]: [address] [place] [address] COURT State: [place] City: [place] Zip code: [address] Past Medical History Allergies Allergen Reaction Date Comments Reported Other allergy 10/15/2017 Benadryl Admission Admission Data Admission Date: 10/15/2017 Admission Time: 7:24 Admit Source: Other Lab Results Lab Result Date: 10/15/2017 Lab Result Time: 7:46 Biochemistry Name Units Result Min Max BUN mg/dl 12 --(-*--)-- 7 18 Creatinine mg/dl 1.4 --(----)*- 0.6 1.3 CBC Name Units Result Min Max Hematocrit % 35.9 *-(----)-- 42 54 Hemoglobin g/dl 12.8 -*(----)-- 13.5 17.5 Procedure Procedure Types Cath Procedure Diagnostic Procedure LHC LHC w/Coronaries PCI Procedure Coronary Stent Coronary Stent Initial Procedure Description Procedure Date Procedure Date: 10/15/2017 Procedure Start Time: 10:01 Procedure End Time: 10:15 Procedure Staff Name Function Hayden Collado MD Performing Physician Ross Thomas RT Monitor Darryn Green RT Scrub Tom Evans RN Nurse Devin Townsend RT Instrument Lens Grinder Apprentice Procedure Data Cath Procedure Fluoroscopy Diagnostic fluoroscopy Total fluoroscopy Time: 3.9 time: 3.9 min min Diagnostic fluoroscopy Total fluoroscopy dose: dose: 268.74 mGy 268.74 mGy Contrast Material Contrast Material Type Amount (ml) Isovue 300 95 Entry Location Entry Primary Successful Side Size Upsize Upsize Entry Closure Mehta ccessful Closure Location (Fr) 1 (Fr) 2 (Fr) Remarks Device Remarks Radial Right 6 Fr Mechanical artery Short Compression Estimated blood loss: 10 ml Diagnostic catheters Device Type Used For End Catheter Placement DIAGNOSTIC Coulter 110cm 5 Procedure Fr catheter ([id number]) Procedure Complications No complications Procedure Medications Medication Administration Route Dosage Oxygen etCO2 Nasal cannula 2 l/min Lidocaine 2% added to field 20 Heparin Flush Bag added to field 2 bags (1000units/500ml NS) 0.9% NaCl I.V. 100 ml/hr Radial Cocktail I.A. 1 syringe (Verapomil 2mg/Nitro 400mcg/Heparin 1500units) Versed I.V. 2 mg Fentanyl I.V. 100 mcg Versed I.V. 2 mg Fentanyl I.V. 100 mcg Versed I.V. 2 mg Fentanyl I.V. 100 mcg Heparin Bolus I.V. 5000 units Versed I.V. 2 mg Versed I.V. 2 mg Hemodynamics Rest HGB: 12.8 (g/dl) Heart Rate: 71 (bpm) Snapshots Pre Cath Intra NCS Post Cath Vital Signs Time Heart Resp SPO2 etCO2 NIBP (mmHg) Rhythm Pain Sedation Rate (ipm) (%) (mmHg) Status Level (bpm) 9:32:40 66 20 97 0 138/86(124) NSR 0 (11) 10(A) , No pain 9:36:58 68 10 98 0 138/84(103) NSR 0 (11) 10(A) , No pain 9:41:18 70 15 98 0 146/87(107) NSR 0 (11) 10(A) , No pain 9:45:36 66 16 98 7.5 128/87(99) NSR 0 (11) 10(A) , No pain 9:49:50 68 29 98 29.2 131/89(112) NSR 0 (11) 10(A) , No pain 9:54:08 68 16 97 22.5 132/78(108) NSR 0 (11) 10(A) , No pain 9:58:26 60 20 98 39.8 115/73(108) NSR 0 (11) 10(A) , No pain 10:02:38 64 19 99 48.1 125/78(113) NSR 0 (11) 10(A) , No pain 10:06:54 82 19 97 48.1 139/74(97) NSR 0 (11) 10(A) , No pain 10:11:16 88 14 98 42.8 135/80(108) NSR 0 (11) 10(A) , No pain 10:15:34 85 16 99 43.6 155/84(110) NSR 0 (11) 10(A) , No pain Medications Time Medication Route Dose Verified Delivered Reason Not es Effectiveness by by 9:50:59 Oxygen etCO2 2 l/min Hayden Buffie used for Nasal Tobias Evans RN procedure cannula 9:51:05 Lidocaine 2% added 20ml Hayden Hayden for local to vial Tobias Collado MD anesthetic field 9:51:11 Heparin Flush added 2 bags Haydenjeannine Blake used for Bag to Tobias Collado MD procedure (1000units/500ml field NS) 9:51:20 0.9% NaCl I.V. 100 Hayden Buffie Per physician ml/hr Tobias Evans RN 9:55:29 Versed I.V. 2 mg Hayden Buffie for sedation Tobias Evans RN 9:55:36 Fentanyl I.V. 100 mcg Hayden Buffie for sedation Tobias Evans RN 9:57:27 Versed I.V. 2 mg Hayden Buffie for sedation Tobias Evans RN 9:57:31 Fentanyl I.V. 100 mcg Hayden Buffie for sedation Tobias Evans RN 10:00:17 Versed I.V. 2 mg Hayden Buffie for sedation Tobias Evans RN 10:00:21 Fentanyl I.V. 100 mcg Hayden Buffie for sedation Tobias Evans RN 10:02:48 Radial Cocktail I.A. 1 Hayden Buffie for (Verapomil syringe Tobias Evans RN vasodilation 2mg/Nitro 400mcg/Heparin 1500units) 10:05:51 Heparin Bolus I.V. 5000 Hayden Buffie for francisca ified units Tobias Evans RN anticoagulation with dr collado 10:09:10 Versed I.V. 2 mg Hayden Santos for sedation Tobias Evans RN 10:11:16 Versed I.V. 2 mg Hayden Santos for sedation Tobias Evans woodwind reeds cutter Log Time Note 9:20:46 Informed consent obtained and on chart 9:20:48 Admit Source: Other 9:21:04 Diagnostic Cath status Elective 9:21:06 Devin Townsend RT(R) sent for patient. Start room use. 9:21:14 Time tracking: Regular hours (M-F 7:00 - 5:00) 9:21:17 Plan of Care:Hemodynamics will remain stable., Cardiac rhythm will remain stable., Comfort level will be maintained., Respiratory function will remain adequate., Patient/ family verbilizes understanding of procedure., Procedure tolerated without complication., Recovers from procedure without complications.. 9:21:38 H&P Date Dictated: 10/14/2017 Within 30 days and on chart., H&P Addendum completed by physician on day of procedure. (MUST COMPLETE FOR ALL OUTPATIENTS). 9:22:54 Lab Result : Creatinine 1.4 mg/dl 9:22:54 Lab Result : BUN 12 mg/dl 9:22:54 Lab Result : Hemoglobin 12.8 g/dl 9:22:54 Lab Result : Hematocrit 35.9 % 9:22:58 Lab results completed and on chart. 9:25:20 Patient received from Pre/Post Procedure Room to CCL 3 Alert and oriented. Tansferred to table in Supine position. 9:25:22 Warm blankets applied, and michele hugger turned on for patient comfort. 9:25:22 Correct patient and procedure confirmed by team. 9:25:24 ECG and BP/O2 sat monitors applied to patient. 9:31:30 Vital chart was started 9:41:27 Baseline sample Acquired. 9:41:30 Rhythm: sinus rhythm 9:41:32 Full Disclosure recording started 9:41:32 Pre-procedure instructions explained to patient. 9:41:33 Pre-op teaching completed and patient verbalized understanding. 9:41:34 Family in waiting room. 9:41:35 Patient NPO since Midnight. 9:41:43 Patient allergic to Other allergyBenadryl 9:41:44 Is the patient allergic to Iodine/contrast media? No. 9:41:46 Is patient on blood thinner?Yes 9:41:48 ACC The patient was administered the following blood thiners within the last 24 hours: ACCPlavix 9:41:49 Patient diabetic? No. 9:41:52 Previous problem with sedation/anesthesia? No ? 9:41:52 Snore? Yes 9:41:53 Sleep apnea? Yes 9:41:54 Deviated septum? No 9:41:55 Opens mouth fully? Yes 9:41:55 Sticks out tongue? Yes 9:41:57 Airway obstruction? No ? 9:41:59 Dentures? Yes in tight 9:42:02 Modified Herson's test Ulnar < 7 seconds 9:42:04 Patient pain scale 0/10 ?. 9:42:11 IV patent on arrival in left wrist with 0.9% NaCl at [facility]. 9:42:19 Right Radial & Right Groin area was prepped with chlora-prep and draped in sterile fashion 9:42:20 Alarms reviewed by R. N. 9:42:21 Sharps counted by scrub and verified by R.N. 9:42:23 Use device set Radial Dx or PCI 9:42:24 ACIST Syringe (24154) opened to sterile field. 9:42:24 Medline Cath Pack ([id number]) opened to sterile field. 9:42:25 Bag Decanter (2002S) opened to sterile field. 9:42:25 ACIST Hand Control (76767) opened to sterile field. 9:42:26 ACIST Manifold (23467) opened to sterile field. 9:42:26 Tegaderm 4 x 4 (1626W) opened to sterile field. 9:42:27 MBrace Wrist Support ([id number]) opened to sterile field. 9:42:28 SHEATH 6Fr Prelude Radial ([id number]) opened to sterile field. 9:42:29 DIAGNOSTIC WIRE .035 260cm J wire (075452) opened to sterile field. 9:49:35 Zero performed for pressure channel P1 9:50:59 Oxygen 2 l/min etCO2 Nasal cannula was administered by Tom Evans RN; used for procedure; 9:51:05 Lidocaine 2% 20ml vial added to field was administered by Hayden Collado MD; for local anesthetic; 9:51:11 Heparin Flush Bag (1000units/500ml NS) 2 bags added to field was administered by Hayden Collado MD; used for procedure; 9:51:20 0.9% NaCl 100 ml/hr I.V. was administered by Tom Evans RN; Per physician; :55:09 Physician arrived 9:55:09 --------ALL STOP TIME OUT------ 9:55:10 Final Timeout: patient, procedure, and site verified with staff and physician. All members of the team are in agreement. 9:55:11 Right Radial & Right Groin site verified by team. :55:14 Physical assessment completed. ASA score P 2 - A patient with mild systemic disease as per Hayden Collado MD. 9:55:16 Sedation plan: IV Moderate Sedation Medication:Versed, Fentanyl 9:55:29 Versed 2 mg I.V. was administered by Tom Evans RN; for sedation; 9:55:36 Fentanyl 100 mcg I.V. was administered by Tom Evans RN; for sedation; 9:57:27 Versed 2 mg I.V. was administered by Tom Evans RN; for sedation; 9:57:31 Fentanyl 100 mcg I.V. was administered by Tom Evans RN; for sedation; 10:00:17 Versed 2 mg I.V. was administered by Tom Evans RN; for sedation; 10:00:21 Fentanyl 100 mcg I.V. was administered by Tom Evans RN; for sedation; 10:01:27 Procedure started. 10:01:56 Local anesthetic to right radial artery with Lidocaine 2% by Hayden Collado MD.INITIAL ACCESS ONLY 10:02:43 A 6 Fr Short sheath was inserted into the Right Radial artery 10:02:48 Radial Cocktail (Verapomil 2mg/Nitro 400mcg/Heparin 1500units) 1 syringe I.A. was administered by Tom Evans RN; for vasodilation; 10:02:49 A DIAGNOSTIC Coulter 110cm 5 Fr catheter ([id number]) was advanced over the wire and used for Procedure. 10:03:34 LV gram done using HADDAD 10:03:36 Injector settings: Ml/sec: 7, Volume: 15, 10:03:41 LV hemodynamics recorded. 10:03:44 EF : 60 % 10:03:49 LCA angiography performed. 10:04:11 INFLATOR Merit BasixCompak ([id number]) opened to sterile field. 10:04:16 CHOICE PT Extra Support 182cm wire ([id number]) opened to sterile field. 10:05:51 Heparin Bolus 5000 units I.V. was administered by Tom Evans RN; for anticoagulation; verified with dr collado 10:06:34 RCA angiography performed. 10:06:35 Catheter removed. 10:06:42 GUIDE 6FR XBLAD 3.5 catheter ([id number]) opened to sterile field. 10:06:50 6 Fr xblad 3.5 guide catheter was inserted over the wire 10:06:53 choice pt es wire advanced. 10:06:54 Wire advanced across lesion. 10:07:33 Place stent Inflation Number: 1 A BERTHA RX 2.75 x 12 stent ([id number]) was prepped and advanced across the Prox LAD. The stent was deployed at 17 NARCISO for 0:10 (min:sec). 10:07:41 Inflation number: 2 The stent balloon was then re-inflated across the Prox LAD to 21 NARCISO for 0:10 (min:sec). 10:09:10 Versed 2 mg I.V. was administered by Tom Evans RN; for sedation; 10:09:13 Inflation number: 3 The stent balloon was then re-inflated across the Prox LAD to 11 NARCISO for 0:10 (min:sec). 10:10:32 Stent catheter was removed intact over wire. 10:11:16 Versed 2 mg I.V. was administered by Tom Evans RN; for sedation; 10:11:47 Place stent Inflation Number: 4 A BERTHA RX 2.75 x 08 stent ([id number]) was prepped and advanced across the Prox LAD. The stent was deployed at 15 NARCISO for 0:10 (min:sec). 10:11:59 Stent catheter was removed intact over wire. 10:11:59 Wire removed. 10:12:00 Guide catheter removed. 10:12:06 TR BAND Standard ([id number]) opened to sterile field. 10:12:15 Sheath removed intact; hemostasis achieved with Mechanical Compression to the Right Radial artery. 10:12:17 Procedure ended.(Physican Out) 10:14:01 Fluoroscopy time 03.90 minutes. 10:14:08 Flurop Dose total: 268.74 10:14:08 Fluoroscopy dose: 268.74 mGy 10:14:12 Contrast amount:Isovue 300 95ml. 10:14:14 Sharps counted by scrub and verified by R.N. 10:14:16 TR band inflated with 12cc of air. 10:14:17 Insertion/operative site no bleeding no hematoma. 10:14:22 Post right radial artery:stable, soft, clean and dry 10:14:24 Post Procedure Pulses reassessed and unchanged 10:14:26 Post procedure rhythm: unchanged. 10:14:28 Estimated blood loss: 10 ml 10:14:46 Post procedure instruction explained to patient.Patient verbalizes understanding. 10:14:47 Patient needs reinforcement of post procedure teaching. 10:14:53 Procedure type changed to Cath procedure, Diagnostic procedure, LHC, LHC w/Coronaries, PCI procedure, Coronary Stent, Coronary Stent Initial 10:15:39 Procedure and supply charges have been captured, reviewed, submitted and are correct. 10:15:42 Procedure Complication : No complications 10:15:44 Vital chart was stopped 10:15:44 See physician's report for complete and final results. 10:15:45 Report given to Pre/Post Procedure Room. 10:15:48 Patient transfered to Pre/Post Procedure Room with Stretcher. 10:15:49 Procedure ended. 10:15:49 Full Disclosure recording stopped 10:15:54 End room use (Document Last) Intervention Summary Intervention Notes Time ActionType Lesion and Equipment Used Action# Pressure Duration Attributes 10:07:33 Place stent Prox LAD BERTHA RX 2.75 x 1 17 00:10 12 stent ([id number]) 10:07:41 Reinflate Prox LAD BERTHA RX 2.75 x 2 21 00:10 stent 12 stent balloon ([id number]) 10:09:13 Reinflate Prox LAD BERTHA RX 2.75 x 3 11 00:10 stent 12 stent balloon ([id number]) 10:11:47 Place stent Prox LAD BERTHA RX 2.75 x 4 15 00:10 08 stent ([id number]) Device Usage Item Name Manufacture Quantity Catalog Number Hospital Part Current Minimal Lot# / Charge Number Stock Stock Serial# Code ACIST Syringe Acist 1 07079 357217 857805 [id number] 20 [id number]) Medical Systems Inc Medline Cath Cardinal 1 [id number] 574948 06130 253750 5 Pack Health ([id number]) Bag Decanter Microtek 1 2001S 299359 22482 873006 5 (2001S) Medical Inc. ACIST Hand Acist 1 17159 999464 076746 965188 5 Control (57884) Medical Systems Inc ACIST Manifold Acist 1 56185 124321 929863 675491 5 (76535) Medical Systems Inc Tegaderm 4 x 4 3M 1 1626W 250653 536362 099545 5 (1626W) MBrace Wrist Advanced 1 140-0250-00 250345 11261 797889 5 Support Vascular ([id number]) Dynamics SHEATH 6Fr Merit 1 [id number] 495832 965378 318857 5 Prelude Radial Medical ([id number]) DIAGNOSTIC WIRE St Kristofer 1 326068 181676 060528 895460 30 .035 260cm J wire (191612) DIAGNOSTIC Terumo 1 80-5105 404245 015707 331449 5 Coulter 110cm 5 Fr catheter (983195) INFLATOR Merit Merit 1 PL4567 308478 037876 068024 15 BrandMe crowdmarketing Medical ([id number]) CHOICE PT Extra Calvert 1 [id number] 027569 264405 930925 5 Support 182cm Scientific wire ([id number]) GUIDE 6FR XBLAD Cardinal 1 [id number] 556842 585244 403564 10 3.5 catheter Health ([id number]) BERTHA RX 2.75 x Medtronic 1 [id number] 138242 0275617 704313 5 [id number] 12 stent ([id number]) BERTHA RX 2.75 x Medtronic 1 [id number] 720075 1810180 578612 5 [id number] 08 stent ([id number]) TR BAND Terumo 1 [id number] 688415 152528 487564 40 Standard ([id number]) Signature Audit Delaplane Stage Time Signature Unsigned Intra-Procedure 10/15/2017 Ross Thomas 10:18:14 AM RT(R) Signatures Monitor : Ross Thomas RT Signature : Date : Time : [address] [place] [place] [address]
--- NOTE | ~2017-10-15 | OP ---
PATIENT NAME: JAELYN BAKER MEDICAL RECORD: [id number] :64 LOCATION:[facility] ADMISSION DATE: SURGEON: SHIRAZ BOLAND MD DATE OF OPERATION: 10/15/2017 PROCEDURES: 1. PTCA stent LAD. 2. Left heart catheterization. 3. Selective coronary angiography. 4. Left ventriculogram. INDICATION: Angina and coronary artery disease. PROCEDURE PERFORMED: After informed consent was obtained and after a detailed description of risks, benefits as well as alternative therapies, the patient elected to proceed with angiogram and angioplasty. The right radial area was prepped and draped in normal sterile fashion. Right radial artery was cannulated via modified Seldinger technique with placement of 6-Thai sheath. All catheters exchanged through this sheath. FINDINGS: The left ventriculogram was performed in standard 30-degree HADDAD view, reveals good cardiac wall motion throughout all segments. Overall ejection fraction estimated 60%. SELECTIVE CORONARY ANGIOGRAPHY: 1. Left main is with no significant angiographic disease. 2. Left anterior descending has previously placed stent with 90% in-stent restenosis. 3. Left circumflex has moderate irregularities, but no flow-limiting stenosis. 4. Right coronary artery has moderate irregularities, but no flow-limiting stenosis. PTCA STENT OF THE LAD: The stent used was 2.75 x 12 and 2.75 x 8, both Rosalie stents. Result was 0% residual stenosis. OVERALL IMPRESSION: Successful percutaneous transluminal coronary angioplasty stent of the left anterior descending going from 90% in-stent restenosis to 0% residual. TRANSINT:[id number] Voice Confirmation ID: [id number] DOCUMENT ID: [id number] SHIRAZ BOLAND MD at 1843 CC: [id number] DICTATION DATE: 10/15/17 1017 SITE DIRECTOR: 10/15/[address] [facility] [address] [place] [address]
[2017-10-15 07:44] VITALS: BP 140/79; Ht 188 cm; Wt 88.6 kg
[2017-10-15 07:52] LABS: BASOPHILS 0.4 % (0-2); EOSINOPHILS 2.5 % (0-7); HEMATOCRIT 35.9 % (42.0-54.0); HEMOGLOBIN 12.8 g/dL (13.5-17.5); IMMATURE GRANULOCYTES 0.2 % (0-5); LYMPHOCYTES 18.1 % (15-50); MCH 28.3 pg (26.0-34.0); MCHC 35.7 g/dL (31.0-37.0); MCV 79.4 fL (80.0-100.0); MEAN PLATELET VOLUME 9.2 fL (7.4-10.4); MONOCYTES 5.7 % (2-11); NEUTROPHILS 73.1 % (40-80); RBC 4.52 10x6/uL (4.20-6.10); RDW 12.6 % (11.5-14.5); WBC 4.9 10x3/uL (4.8-10.8)
[2017-10-15 08:04] LABS: ANION GAP 11.9 mmol/L (8-16); CARBON DIOXIDE 25.1 mmol/L (21.0-32.0); CREATININE - SERUM 1.4 mg/dL (0.6-1.3)
[2017-10-15 08:14] LABS: PLATELET COUNT 211 10x3/uL (130-400)
== END | disposition home or self-care (01) ==
LOC: D.CATH 07:24
PROVIDERS: Internal Medicine Interventional Cardiology
DX: I25.119 Atherosclerotic heart disease of native coronary artery with unspecified angina pectoris (principal); Z01.812 Encounter for preprocedural laboratory examination

== ENCOUNTER 2017-11-03 21:23 | Observation (INO) | payer BC ==
[~2017-11-03] VITALS: Ht 188 cm; Wt 90.9 kg
--- NOTE | ~2017-11-03 | HEMODYNAMI ---
PATIENT:JAELYN BAKER MEDICAL RECORD: [id number] : 64 LOCATION:[facility] ADMISSION DATE: 11/04/17 Generatedon:11/04/201714:26 Patient name: JAELYN BAKER Patient #: [id number] SSN: [id number] : 1960 Date of study: 11/04/2017 Page: Of Hemodynamic Procedure Report Patient Data Patient Demographics Procedure consent was obtained First Name: JAELYN Gender: Male Last Name: OLIVIA : 1960 [facility] Initial: HAL Age: 57 year(s) Patient #: [id number] Race: SSN: [id number] Additional ID: [id number] Contact details [address]: [address] [place] [address] COURT State: [place] City: [place] Zip code: [address] Past Medical History Allergies Allergen Reaction Date Comments Reported Other allergy 10/15/2017 Benadryl Other allergy 11/04/2017 Benadryl Admission Admission Data Admission Date: 11/04/2017 Admission Time: 1:29 Room #: [id number] Height (in.): 73.62 BSA: 2.16 (m2) Height (cm.): 187 BMI: 25.74 (kg/m2) Weight (lbs.): 198.42 Weight (kg.): 90 Lab Results Lab Result Date: 11/04/2017 Lab Result Time: 0:00 Biochemistry Name Units Result Min Max BUN mg/dl 22 --(----)-* 7 18 Creatinine mg/dl 1.6 --(----)-* 0.6 1.3 CBC Name Units Result Min Max Hemoglobin g/dl 11.4 *-(----)-- 13.5 17.5 Procedure Procedure Types Cath Procedure Diagnostic Procedure LHC LHC w/Coronaries Procedure Description Procedure Date Procedure Date: 11/04/2017 Procedure Start Time: 14:15 Procedure End Time: 14:23 Procedure Staff Name Function Ashu Kurtz MD Performing Physician Ana Sexton RT Monitor Yahir Carranza RN Nurse Hallie García RT Scrub Procedure Data Cath Procedure Fluoroscopy Diagnostic fluoroscopy Total fluoroscopy Time: 2.5 time: 2.5 min min Diagnostic fluoroscopy Total fluoroscopy dose: 331 dose: 331 mGy mGy Contrast Material Contrast Material Type Amount (ml) Isovue 300 42 Entry Location Entry Primary Successful Side Size Upsize Upsize Entry Closure Mehta ccessful Closure Location (Fr) 1 (Fr) 2 (Fr) Remarks Device Remarks Radial Right 6 Fr Mechanical artery Short Compression Estimated blood loss: 10 ml Diagnostic catheters Device Type Used For End Catheter Placement DIAGNOSTIC [place] 110cm 5 Procedure Fr catheter ([id number]) Procedure Complications No complications Procedure Medications Medication Administration Route Dosage 0.9% NaCl I.V. 100 ml/hr Oxygen etCO2 Nasal cannula 2 l/min Heparin Flush Bag added to field 2 bags (1000units/500ml NS) Lidocaine 2% added to field 20 Radial Cocktail added to field 1 syringe (Verapomil 2mg/Nitro 400mcg/Heparin 1500units) Versed I.V. 2 mg Fentanyl I.V. 100 mcg Versed I.V. 2 mg Fentanyl I.V. 100 mcg Radial Cocktail I.A. 1 syringe (Verapomil 2mg/Nitro 400mcg/Heparin 1500units) Hemodynamics Rest BSA: 2.16 (m2) O2 Consumption: Estimated: 242.32 (ml/min) O2 Consumption indexed : Estimated:112.19 (ml/min/m) Heart Rate: 53 (bpm) Pressure Samples Time Site Value (mmHg) Purpose Heart Use Rate(bpm) 14:18 LV 148/10,17 Snapshot 53 14:19 AO 150/91(118) Pullback 76 14:19 LV 136/18,34 Pullback 76 Gradients Valve Time Site 1 Site 2 Mean SEP/DFP Peak To Heart Use (mmHg) (sec/min) Peak Rate (mmHg) (bpm) Aortic 14:19 LV AO 0 76 136/18,34 150/91(118) Calculations Valve P-P Mean Valve Index Valve Source Name Gradient Area Flow (cm2) Aortic 0 0 Snapshots Pre Cath Intra NCS Post Cath Vital Signs Time Heart Resp SPO2 etCO2 NIBP (mmHg) Rhythm Pain Sedation Rate (ipm) (%) (mmHg) Status Level (bpm) 13:51:53 51 11 100 25.4 184/97(141) NSR 0 (11) 10(A) , No pain 13:56:08 48 18 99 30.7 165/103(138) NSR 0 (11) 10(A) , No pain 14:00:23 50 26 97 26.9 151/92(111) NSR 0 (11) 10(A) , No pain 14:04:19 53 30 97 37.4 150/129(145) NSR 0 (11) 10(A) , No pain 14:08:51 47 25 98 37.4 141/49(109) NSR 0 (11) 10(A) , No pain 14:13:07 52 15 95 36.7 134/82(107) NSR 0 (11) 10(A) , No pain 14:17:17 58 14 98 44.9 139/87(103) NSR 0 (11) 10(A) , No pain 14:22:20 60 22 96 44.9 162/86(123) NSR 0 (11) 10(A) , No pain Medications Time Medication Route Dose Verified Delivered Reason Notes Effectiveness by by 13:49:35 0.9% NaCl I.V. 100 Yahir Yahir Per ml/hr Tere Carranza physician RN RN 13:49:47 Oxygen etCO2 2 l/min Yahir Yahir Per Nasal Tere Carranza physician cannula RN RN 13:50:07 Heparin Flush added 2 bags Yahir Yahir used for Bag to Lorigan Tere procedure (1000units/500ml [facility] RN RN NS) 13:50:22 Lidocaine 2% added 20ml Yahir Yahir for local to vial Lorigan Lorigan anesthetic field SUTHERLAND RN 14:02:57 Radial Cocktail added 1 Yahir Yahir used for (Verapomil to syringe Lorigan Lorigan procedure 2mg/Nitro RN RN 400mcg/Heparin 1500units) 14:08:57 Versed I.V. 2 mg Yahir Yahir for sedation Tere Carranza RN RN 14:09:06 Fentanyl I.V. 100 mcg Yahir Yahir for sedation Tere Carranza RN RN 14:14:17 Versed I.V. 2 mg Yahir Yahir for sedation Tere Carranza RN RN 14:14:23 Fentanyl I.V. 100 mcg Yahir Yahir for sedation Tere Carranza RN RN 14:15:11 Radial Cocktail I.A. 1 Yahir [place] for (Verapomil syringe Estefaniaigan Jerardo vasodilation 2mg/Nitro RN 400mcg/Heparin 1500units) Procedure Log Time Note 13:30:57 Patient Height : 73.62 inches 13:31:01 Patient Weight : 198.42 lbs 13:31:39 Lab Result : Hemoglobin 11.4 g/dl 13:31:39 Lab Result : Creatinine 1.6 mg/dl 13:31:39 Lab Result : BUN 22 mg/dl 13:32:11 Diagnostic Cath status Elective 13:33:45 Yahir Carranza RN sent for patient. Start room use. 13:33:49 Time tracking: Regular hours (M-F 7:00 - 5:00) 13:33:55 Plan of Care:Hemodynamics will remain stable., Cardiac rhythm will remain stable., Comfort level will be maintained., Respiratory function will remain adequate., Patient/ family verbilizes understanding of procedure., Procedure tolerated without complication., Recovers from procedure without complications.. 13:40:50 Patient received from ED to CCL 2 Alert and oriented. Tansferred to table in Supine position. 13:40:52 Warm blankets applied, and michele hugger turned on for patient comfort. 13:40:59 Correct patient and procedure confirmed by team. 13:41:01 Signed procedure consent form obtained from patient. 13:41:15 H&P Date Dictated: 11/04/2017 Within 30 days and on chart.. 13:41:17 Pre-procedure instructions explained to patient. 13:41:22 Family in waiting room. 13:41:25 Patient NPO since Midnight. 13:41:53 Patient allergic to Other allergyBenadryl 13:41:58 Is the patient allergic to Iodine/contrast media? No. 13:41:59 Was the patient premedicated? Yes 13:42:01 Is patient on blood thinner?Yes 13:42:10 ACC The patient was administered the following blood thiners within the last 24 hours: ACCPlavix 13:49:35 0.9% NaCl 100 ml/hr I.V. was administered by Yahir Carranza RN; Per physician; 13:49:47 Oxygen 2 l/min etCO2 Nasal cannula was administered by Yahir Lorigan RN; Per physician; 13:50:07 Heparin Flush Bag (1000units/500ml NS) 2 bags added to field was administered by Yahir Carranza RN; used for procedure; 13:50:22 Lidocaine 2% 20ml vial added to field was administered by Yahir Carranza RN; for local anesthetic; 13:50:41 Vital chart was started 13:52:57 Snore? Yes 13:52:59 Sleep apnea? Yes 13:53:07 Patient pain scale 0/10 ?. 13:53:14 IV patent on arrival in left forearm with 0.9% NaCl at [facility]. 13:53:19 Lab results completed and on chart. 13:53:23 Right Radial & Right Groin area was prepped with chlora-prep and draped in sterile fashion 13:53:24 Alarms reviewed by R. N. 13:53:25 Sharps counted by scrub and verified by R.N. 13:53:26 Physician paged 13:56:52 Dentures? Yes . 14:02:57 Radial Cocktail (Verapomil 2mg/Nitro 400mcg/Heparin 1500units) 1 syringe added to field was administered by Yahir Carranza RN; used for procedure; 14:03:30 Physician arrived 14:03:32 Zero performed for pressure channel P1 14:08:17 --------ALL STOP TIME OUT------ 14:08:17 Final Timeout: patient, procedure, and site verified with staff and physician. All members of the team are in agreement. 14:08:20 Right Radial & Right Groin site verified by team. 14:08:23 Physical assessment completed. ASA score P 2 - A patient with mild systemic disease as per Ashu Kurtz MD. 14:08:27 Sedation plan: IV Moderate Sedation Medication:Versed, Fentanyl 14:08:57 Versed 2 mg I.V. was administered by Yahir Carranza RN; for sedation; 14:09:06 Fentanyl 100 mcg I.V. was administered by Yahir Carranza RN; for sedation; 14:14:17 Versed 2 mg I.V. was administered by Yahir Carranza RN; for sedation; 14:14:23 Fentanyl 100 mcg I.V. was administered by Yahir Carranza RN; for sedation; 14:14:37 Procedure started. 14:14:37 Full Disclosure recording started 14:14:45 Use device set Radial Dx or PCI 14:14:46 ACIST Syringe (45926) opened to sterile field. 14:14:47 Medline Cath Pack ([id number]) opened to sterile field. 14:14:47 Bag Decanter (2002) opened to sterile field. 14:14:47 DIAGNOSTIC WIRE .035 260cm J wire (875212) opened to sterile field. 14:14:48 ACIST Hand Control (55442) opened to sterile field. 14:14:48 ACIST Manifold (70037) opened to sterile field. 14:14:52 MBrace Wrist Support ([id number]) opened to sterile field. 14:14:54 NEEDLE Cook 21G 4cm Radial (R11671) opened to sterile field. 14:14:56 SHEATH 6Fr Prelude Radial ([id number]) opened to sterile field. 14:15:09 Local anesthetic to right radial artery with Lidocaine 2% by Ashu Kurtz MD.INITIAL ACCESS ONLY 14:15:11 Radial Cocktail (Verapomil 2mg/Nitro 400mcg/Heparin 1500units) 1 syringe I.A. was administered by Ashu Kurtz MD; for vasodilation; 14:15:23 A 6 Fr Short sheath was inserted into the Right Radial artery 14:15:36 A DIAGNOSTIC [place] 110cm 5 Fr catheter (655415) was advanced over the wire and used for Procedure. 14:15:42 J wire advanced. 14:17:37 LV angiography performed. 14:19:18 EF : 60 % 14:19:30 LCA angiography performed. 14:20:52 RCA angiography performed. 14:20:55 Catheter removed. 14:21:13 Sheath removed intact; hemostasis achieved with Mechanical Compression to the Right Radial artery. 14:21:16 Procedure ended.(Physican Out) 14:21:30 Fluoroscopy time 02.50 minutes. 14:21:36 Fluoroscopy dose: 331 mGy 14:21:36 Flurop Dose total: 331 14:21:39 Contrast amount:Isovue 300 42ml. 14:21:41 Sharps counted by scrub and verified by R.N. 14:21:44 TR band inflated with 11cc of air. 14:21:46 Insertion/operative site no bleeding no hematoma. 14:21:50 Post Procedure Pulses reassessed and unchanged 14:21:55 Post-procedure physical assessment completed. ASA score P 2 - A patient with mild systemic disease as per Ashu Kurtz MD. 14:21:58 Post procedure rhythm: sinus rhythm 14:22:01 Estimated blood loss: 10 ml 14:22:04 Post procedure instruction explained to patient.Patient verbalizes understanding. 14:22:22 Procedure and supply charges have been captured, reviewed, submitted and are correct. 14:22:51 Procedure Complication : No complications 14:22:55 Vital chart was stopped 14:23:08 See physician's report for complete and final results. 14:23:32 Report given to Pre/Post Procedure Room. 14:23:38 Patient transfered to Pre/Post Procedure Room with Stretcher. 14:23:41 Procedure ended. 14:23:41 Full Disclosure recording stopped 14:23:44 End room use (Document Last) Device Usage Item Name Manufacture Quantity Catalog Number Hospital Part Current M inimal Lot# / Charge Number Stock Stock Serial# Code ACIST Syringe Acist 1 88606 108837 899595 023428 2 0 (96899) Medical Systems Inc Medline Cath Cardinal 1 [id number] 44841 108640 5 Pack [facility] ([id number]) Bag Decanter Microtek 1 2001S 434893 04687 411153 5 (2001S) Medical Inc. DIAGNOSTIC WIRE [facility] Kristofer 1 080739 604731 241171 949231 3 0 .035 260cm J wire (142594) ACIST Hand Acist 1 65811 826411 105121 819718 5 Control (02033) Medical Systems Inc ACIST Manifold Acist 1 03755 376543 087024 617823 5 (44059) Medical Systems Inc MBrace Wrist Advanced 1 140-0250-00 168845 42559 659795 5 Support Vascular ([id number]) Dynamics NEEDLE Cook 21G Cook Medical 1 C10321 825459 320977 425996 5 4cm Radial (S55555) SHEATH 6Fr Merit 1 [id number] 543479 508301 602427 5 Prelude Radial Medical ([id number]) DIAGNOSTIC Terumo 1 23-5215 095957 094022 701075 5 [place] 110cm 5 Fr catheter (206660) Signature Audit [place] Stage Time Signature Unsigned Intra-Procedure 11/04/2017 Ana Sexton 2:26:21 PM RT(R) Signatures Monitor : Ana Sexton Signature : RT Date : Time : [address] [place] [address]
[2017-11-03] MEDS ORDERED: CELEXA40 MG PO (21:36)
[2017-11-03 21:56] LABS: BASOPHILS 0 % (0-2); EOSINOPHILS 0 % (0-7); HEMATOCRIT 32.8 % (42.0-54.0); HEMOGLOBIN 11.4 g/dL (13.5-17.5); IMMATURE GRANULOCYTES 0.4 % (0-5); LYMPHOCYTES 10.8 % (15-50); MCH 28.3 pg (26.0-34.0); MCHC 34.8 g/dL (31.0-37.0); MCV 81.4 fL (80.0-100.0); MEAN PLATELET VOLUME 9.6 fL (7.4-10.4); MONOCYTES 2.9 % (2-11); NEUTROPHILS 85.9 % (40-80); PLATELET COUNT 195 10x3/uL (130-400); RBC 4.03 10x6/uL (4.20-6.10); RDW 13.6 % (11.5-14.5); WBC 8.3 10x3/uL (4.8-10.8)
[2017-11-03 22:10] LABS: APTT 24.5 SECONDS (22.8-39.4); INR 1.06 (0.85-1.17); PROTIME 13.4 SECONDS (11.6-15.0)
[2017-11-03 22:14] LABS: ALBUMIN 3.8 g/dL (3.4-5.0); ALKALINE PHOSPHATASE 53 U/L (46-116); ALT (SGPT) 25 U/L (10-68); BILIRUBIN - TOTAL 0.19 mg/dL (0.2-1.3); CALCIUM 8.1 mg/dL (8.5-10.1); CARBON DIOXIDE 22.2 mmol/L (21.0-32.0); CHLORIDE - SERUM 104 mmol/L (98-107); CREATININE - SERUM 1.6 mg/dL (0.6-1.3); POTASSIUM - SERUM 3.9 mmol/L (3.5-5.1); PROTEIN - SERUM 7.1 g/dL (6.4-8.2); SODIUM 137 mmol/L (136-145); UREA NITROGEN 22 mg/dL (7-18); eGFR NON AFRICAN AMERICAN 48 mL/min (90-120)
[2017-11-03 22:17] LABS: CKMB 2.1 U/L (0.0-3.6); CREATINE KINASE 108 UL (21-232); PRO BNP 608 pg/mL (0-125)
[2017-11-03 22:20] LABS: CALC OSMOLALITY 285 mosm/kg (275-300); GLUCOSE 268 mg/dL (74-106); TROPONIN-I < 0.017 ng/mL (0.000-0.060)
[2017-11-04] VITALS (13 sets, daily range): BP systolic 121–156; BP diastolic 72–108; Ht 188 cm; Wt 90.9 kg
[2017-11-04 08:42] LABS: BASOPHILS 0 % (0-2); EOSINOPHILS 0 % (0-7); HEMATOCRIT 32.1 % (42.0-54.0); HEMOGLOBIN 11.1 g/dL (13.5-17.5); IMMATURE GRANULOCYTES 0.2 % (0-5); LYMPHOCYTES 15.6 % (15-50); MCH 28.3 pg (26.0-34.0); MCHC 34.6 g/dL (31.0-37.0); MCV 81.9 fL (80.0-100.0); MEAN PLATELET VOLUME 9.7 fL (7.4-10.4); MONOCYTES 6.6 % (2-11); NEUTROPHILS 77.6 % (40-80); PLATELET COUNT 193 10x3/uL (130-400); RBC 3.92 10x6/uL (4.20-6.10); RDW 13.9 % (11.5-14.5); WBC 8.3 10x3/uL (4.8-10.8)
[2017-11-04 08:48] LABS: ANION GAP 15.9 mmol/L (8-16); CALCIUM 8.2 mg/dL (8.5-10.1); CARBON DIOXIDE 23.1 mmol/L (21.0-32.0); CREATININE - SERUM 1.2 mg/dL (0.6-1.3)
[2017-11-05 04:00] VITALS: BP 149/75
[2017-11-05 06:21] LABS: BASOPHILS 0.4 % (0-2); EOSINOPHILS 2.1 % (0-7); HEMATOCRIT 35.4 % (42.0-54.0); HEMOGLOBIN 12.2 g/dL (13.5-17.5); IMMATURE GRANULOCYTES 0.3 % (0-5); LYMPHOCYTES 30.5 % (15-50); MCH 28.2 pg (26.0-34.0); MCHC 34.5 g/dL (31.0-37.0); MCV 81.9 fL (80.0-100.0); MEAN PLATELET VOLUME 9.6 fL (7.4-10.4); NEUTROPHILS 58.7 % (40-80); PLATELET COUNT 191 10x3/uL (130-400); RBC 4.32 10x6/uL (4.20-6.10); RDW 13.7 % (11.5-14.5); WBC 7.3 10x3/uL (4.8-10.8)
[2017-11-05 06:42] LABS: ANION GAP 10.7 mmol/L (8-16); CARBON DIOXIDE 28.1 mmol/L (21.0-32.0); CREATININE - SERUM 1.4 mg/dL (0.6-1.3); POTASSIUM - SERUM 3.8 mmol/L (3.5-5.1)
== END 2017-11-05 14:19 | disposition home or self-care (01) ==
LOC: D.ER 21:23 → OBSVTIME 11-04 01:29 → D.EDHOLD 11-04 01:29 → D.M2 11-04 01:29 → D.CLR 11-04 13:35 → D.M2 11-04 17:43
PROVIDERS: Family Medicine; Internal Medicine Interventional Cardiology
DX: I25.110 Atherosclerotic heart disease of native coronary artery with unstable angina pectoris (principal); I10 Essential (primary) hypertension; Z95.5 Presence of coronary angioplasty implant and graft; E78.5 Hyperlipidemia, unspecified; F41.9 Anxiety disorder, unspecified; F32.9 Major depressive disorder, single episode, unspecified

== ENCOUNTER 2018-04-26 11:35 | Emergency (ER) | payer BC ==
[~2018-04-26] VITALS: Ht 188 cm; Wt 91.8 kg
[2018-04-26 11:40] VITALS: Ht 188 cm; Wt 91.8 kg
[2018-04-26 12:06] LABS: BASOPHILS 0.7 % (0-2); EOSINOPHILS 3.4 % (0-7); HEMATOCRIT 33.8 % (42.0-54.0); HEMOGLOBIN 12.2 g/dL (13.5-17.5); IMMATURE GRANULOCYTES 0.2 % (0-5); LYMPHOCYTES 25.7 % (15-50); MCH 29.4 pg (26.0-34.0); MCHC 36.1 g/dL (31.0-37.0); MCV 81.4 fL (80.0-100.0); MONOCYTES 7.3 % (2-11); NEUTROPHILS 62.7 % (40-80); PLATELET COUNT 200 10x3/uL (130-400); RBC 4.15 10x6/uL (4.20-6.10); RDW 13.6 % (11.5-14.5); WBC 4.1 10x3/uL (4.8-10.8)
[2018-04-26 12:23] LABS: ALBUMIN 4.2 g/dL (3.4-5.0); ALKALINE PHOSPHATASE 54 U/L (46-116); ALT (SGPT) 37 U/L (10-68); BILIRUBIN - TOTAL 0.47 mg/dL (0.2-1.3); CALC OSMOLALITY 280 mosm/kg (275-300); CALCIUM 8.6 mg/dL (8.5-10.1); CARBON DIOXIDE 25.3 mmol/L (21.0-32.0); CHLORIDE - SERUM 104 mmol/L (98-107); CREATININE - SERUM 1.2 mg/dL (0.6-1.3); GLUCOSE 130 mg/dL (74-106); POTASSIUM - SERUM 3.1 mmol/L (3.5-5.1); PROTEIN - SERUM 7.3 g/dL (6.4-8.2); SODIUM 140 mmol/L (136-145); UREA NITROGEN 13 mg/dL (7-18); eGFR NON AFRICAN AMERICAN 66 mL/min (90-120)
[2018-04-26 12:32] LABS: CKMB 2.4 U/L (0.0-3.6); CREATINE KINASE 202 UL (21-232); TROPONIN-I < 0.017 ng/mL (0.000-0.060)
[2018-04-26 14:18] VITALS: BP 131/78
== END 2018-04-26 14:18 | disposition left against medical advice (07) ==
LOC: D.ER 11:35
PROVIDERS: Family Medicine
DX: R07.9 Chest pain, unspecified (principal); I25.10 Atherosclerotic heart disease of native coronary artery without angina pectoris

== ENCOUNTER 2018-06-14 21:38 | Observation (INO) | payer BC ==
[2018-06-14 23:33] LABS: BASOPHILS 0.4 % (0-2); EOSINOPHILS 5.4 % (0-7); HEMATOCRIT 35.6 % (42.0-54.0); HEMOGLOBIN 12.8 g/dL (13.5-17.5); IMMATURE GRANULOCYTES 0.3 % (0-5); LYMPHOCYTES 22.1 % (15-50); MCV 80.7 fL (80.0-100.0); MONOCYTES 8.6 % (2-11); NEUTROPHILS 63.2 % (40-80); PLATELET COUNT 222 10x3/uL (130-400); RBC 4.41 10x6/uL (4.20-6.10); RDW 12.4 % (11.5-14.5); WBC 7.9 10x3/uL (4.8-10.8)
[2018-06-14 23:36] LABS: APPEARANCE CLEAR (CLEAR); BILIRUBIN NEGATIVE (NEGATIVE); COLOR YELLOW (YELLOW); GLUCOSE NEGATIVE (NEGATIVE); KETONE NEGATIVE (NEGATIVE); NITRITE NEGATIVE (NEGATIVE); PROTEIN NEGATIVE (NEGATIVE); SPECIFIC GRAVITY 1.015 (1.005-1.020); UROBILINOGEN NORMAL (NORMAL)
[2018-06-14 23:50] LABS: ALBUMIN 4.3 g/dL (3.4-5.0); ALKALINE PHOSPHATASE 67 U/L (46-116); ALT (SGPT) 25 U/L (10-68); BILIRUBIN - TOTAL 0.54 mg/dL (0.2-1.3); CALC OSMOLALITY 271 mosm/kg (275-300); CALCIUM 8.6 mg/dL (8.5-10.1); CARBON DIOXIDE 31.3 mmol/L (21.0-32.0); CHLORIDE - SERUM 97 mmol/L (98-107); CREATININE - SERUM 1.5 mg/dL (0.6-1.3); GLUCOSE 110 mg/dL (74-106); POTASSIUM - SERUM 3.7 mmol/L (3.5-5.1); PROTEIN - SERUM 7.8 g/dL (6.4-8.2); SODIUM 135 mmol/L (136-145); UREA NITROGEN 16 mg/dL (7-18); eGFR NON AFRICAN AMERICAN 51 mL/min (90-120)
[2018-06-14 23:56] LABS: AMYLASE - SERUM 39 U/L (25-115); LIPASE 84 U/L (73-393)
[2018-06-14 23:57] LABS: TROPONIN-I < 0.017 ng/mL (0.000-0.060)
--- NOTE | 2018-06-15 05:58 | NUR ---
REPORT GIVEN TO RABIA SUTHERLAND, PATIENT MOVED TO E3 IN HOLDING. NO ACUTE DISTRESS.
[2018-06-15 06:10] VITALS: BP 143/71; BMI 25.7
[2018-06-15 08:30] VITALS: BP 145/74
--- NOTE | 2018-06-15 08:30 | NUR ---
PT RESTING IN BED WITH SPOUSE AT BEDSIDE. REPORTS PAIN 7/10 AT THIS TIME. MORPHINE FRANCHISE SALES MANAGER INTACT AND UTILIZING REPORTS SOME RELIEF WITH PAIN MED. IV TO LEFT AC WITH NS @ 125ML/HR INFUSING VIA PUMP. MORPHINE FRANCHISE SALES MANAGER INTACT. REMAINS NPO FOR PENDING TESTING AT THIS TIME. CL WITHIN REACH. ENCOURAGED TO CALL WITH NEEDS. CONTINUE TO MONITOR
--- NOTE | 2018-06-15 10:45 | NUR ---
PT RESTING QUIETLY IN BED. NO ACUTE DISTRESS NOTED. SPOUSE REMAINS AT BEDSIDE AT THIS TIME. DENIES NEEDS AT THIS TIME. CL WITHIN REACH. ENCOURAGED TO CALL WITH NEEDS. WILL CONTINUE TO MONITOR.
[2018-06-15 12:35] VITALS: BP 143/71
--- NOTE | 2018-06-15 13:00 | NUR ---
PT RESTING IN BED WITH EYES CLOSED. NO ACUTE DISTRESS. REMAINS NPO FOR SCHEDULED PROCEDURE. DENIES NEEDS AT THIS TIME. CL WITHIN REACH. WILL CONTINUE TO MONITOR.
--- NOTE | 2018-06-15 15:24 | MORECARE ---
CASE MANAGEMENT DISCHARGE SUMMARY PATIENT: JAELYN BAKER UNIT: [id number] ADM DATE: 06/15/18 AGE: 58 : 64 SEX: M ROOM/BED: D.2238 AUTHOR: ALEXSANDRA BERNAL PHYSICIAN: REFERRING PHYSICIAN: ANATOLIY MARLOW MD DATE OF SERVICE: 06/15/18 Discharge Plan Patient Name: [facility]ELY[facility]AKER [facility] 1960 Planned Disposition: Anticipated Discharge Date: Discharge Date: Expected LOS: Initial Reviewer: [email or web address] Initial Review Date: 06/15/2018 Generated: 06/15/18 4:24 pm DCPIA - Discharge Planning Initial Assessment Updated by [email or web address]: Lucinda Pierre on 06/15/18 3:22 pm * Is the patient Alert and Oriented? Yes * PCP Dr. Marlow * Pharmacy [facility] ([address] * Preadmission Environment Home with Family * ADLs Independent * Equipment None * Other Equipment None reported * List name and contact numbers for known caregivers / representatives who currently or will assist patient after discharge: Nadine Baker () [phone] * Verbal permission to speak to the caregivers and representatives has been obtained from the patient. Yes * Community resources currently utilized None * Please name any agencies selected above. NA * Additional services required to return to the preadmission environment? No * Can the patient safely return to the preadmission environment? Yes * Has this patient been hospitalized within the prior 30 days at any hospital? No Patient Name: JAELYN BAKER Page [id number] at 1524 All edits/amendments must be made on the electronic document DICTATION DATE: 06/15/18 1524 CHARTER COORDINATOR: LOLIS 06/15/18 1524 RPT#: [id number] DC DATE: STATUS: ADM IN [facility] [address] [place] [address] END OF REPORT
--- NOTE | 2018-06-15 15:33 | MORECARE ---
CASE MANAGEMENT DISCHARGE SUMMARY PATIENT: JAELYN BAKER UNIT: [id number] ADM DATE: 06/15/18 AGE: 58 : 64 SEX: M ROOM/BED: D.2238 AUTHOR: DOLORES,DOC PHYSICIAN: REFERRING PHYSICIAN: ANATOLIY MARLOW MD DATE OF SERVICE: 06/15/18 Discharge Plan Patient Name: JAELYN BAKER [facility]:[place] : 1960 Planned Disposition: Anticipated Discharge Date: Discharge Date: Expected LOS: Initial Reviewer: [email or web address] Initial Review Date: 06/15/2018 Generated: 06/15/18 4:33 pm DCP- Discharge Planning Updated by [email or web address]: Lucinda Pierre on 06/15/18 2:[address] CM met with patient to discuss dc plans/needs. Patient is in agreement to proceed with assessment with , Nadine present. Patient is alert/oriented, gives permission to complete CM assessment. PCP: Dr. Marlow. Pharmacy: [facility] (by [facility]). Emergency contact: Nadine Baker () [phone]. Independent/Partial ADL's: Independent. HHS: None. DME: None. Patient/ denies need for additional services upon discharge and feels safe returning to previous environment with . Patient denies being hospitalized within the past 30 days. 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 Transportation at time of discharge: Nadine Baker () [phone]. DCPIA - Discharge Planning Initial Assessment Updated by [email or web address]: Lucinda Pierre on 06/15/18 3:22 pm * Is the patient Alert and Oriented? Yes * PCP Dr. Marlow * Pharmacy [facility] ([address] * Preadmission Environment Home with Family * ADLs Independent * Equipment None * Other Equipment None reported * List name and contact numbers for known caregivers / representatives who currently or will assist patient after discharge: Nadine Baker () [phone] * Verbal permission to speak to the caregivers and representatives has been obtained from the patient. Yes * Community resources currently utilized None * Please name any agencies selected above. NA * Additional services required to return to the preadmission environment? No * Can the patient safely return to the preadmission environment? Yes * Has this patient been hospitalized within the prior 30 days at any hospital? No Last DP export: 06/15/18 2:24 pm Patient Name: JAELYN BAKER Page [phone] at 1533 All edits/amendments must be made on the electronic document DICTATION DATE: 06/15/181532 MAGNETO REPAIRER: LOLIS 06/15/181532 RPT#: [id number] DC DATE: STATUS: ADM IN [facility] [address] [place] [address] END OF REPORT
--- NOTE | 2018-06-15 17:46 | NUR ---
PT TAKEN TO NUCLEAR MEDICAINE BY LETICIA NGUYEN. SPOUSE AT [facility], CONTINUE WITH PLAN OF CARE
[2018-06-15 22:12] VITALS: BP 164/87
[2018-06-16 00:45] VITALS: BP 120/87
[2018-06-16 05:12] VITALS: BP 156/81
[2018-06-16 05:29] LABS: BASOPHILS 0.3 % (0-2); EOSINOPHILS 1.8 % (0-7); HEMATOCRIT 34.3 % (42.0-54.0); HEMOGLOBIN 12.1 g/dL (13.5-17.5); IMMATURE GRANULOCYTES 0.1 % (0-5); MCH 28.8 pg (26.0-34.0); MCHC 35.3 g/dL (31.0-37.0); MCV 81.7 fL (80.0-100.0); MEAN PLATELET VOLUME 9.1 fL (7.4-10.4); MONOCYTES 8.1 % (2-11); NEUTROPHILS 74.7 % (40-80); PLATELET COUNT 189 10x3/uL (130-400); RDW 12.4 % (11.5-14.5); WBC 7.3 10x3/uL (4.8-10.8)
[2018-06-16 05:49] LABS: ALBUMIN 3.4 g/dL (3.4-5.0); ANION GAP 9.5 mmol/L (8-16); BILIRUBIN - TOTAL 0.82 mg/dL (0.2-1.3); CALCIUM 8.4 mg/dL (8.5-10.1); CARBON DIOXIDE 30.3 mmol/L (21.0-32.0); CREATININE - SERUM 1.2 mg/dL (0.6-1.3); POTASSIUM - SERUM 3.8 mmol/L (3.5-5.1); PROTEIN - SERUM 6.6 g/dL (6.4-8.2)
--- NOTE | 2018-06-16 06:27 | NUR ---
I have reviewed this patient and I concur with the Shift Assessment completed by the Licensed Practical Nurse today this shift.
--- NOTE | 2018-06-16 07:42 | NUR ---
PT IS RESTING IN BED WITH EYES OPEN. RESPIRATIONS ARE EVEN AND UNLABORED. PT WITH MORPHINE BLOCK SAW OPERATOR FOR PAIN CONTROL. PIV INFUSING WITHOUT DIFFICULTY TO LEFT AC. BED IS IN THE LOWEST POSITION. CALL LIGHT AND BEDSIDE TABLE ARE WITHIN REACH. PT EDUCATED ON SCDS AND PT WILL WEAR SCDS. PT VERBALIZES UNDERSTANDING. SIDE RAILS X 2. PT DENIES FURTHER NEEDS AT THIS TIME. WILL CONT TO MONITOR.
[2018-06-16 08:35] VITALS: BP 135/74
[2018-06-16 12:11] VITALS: BP 187/89
[2018-06-16 13:53] VITALS: BMI 25.6
--- NOTE | 2018-06-16 14:47 | NUR ---
CONSENTS FOR PROCEDURES COVERED WITH PT AND PT FAMILY MEMBER. PT SIGNED ALL CONSENTS. SIGNED CONSENTS FOR PROCEDURE PLACED IN PT CHART.
[2018-06-16 16:08] VITALS: BP 154/84
--- NOTE | 2018-06-16 20:10 | NUR ---
PT RESTING IN BED. ALERT AND ORIENTED. NO SIGNS OF DISTRESS. BREATHING EVEN AND UNLABORED. PT STATES NO PROBLEMS AT THIS TIME. IV SITE LT AC DRESSING CELAN DRY AND INTACT. NO SIGNS OF INFECTION. BOWEL SOUNDS ACTIVE. NO LOWER LEG SWELLING PRESENT. WILL CONTINUE PLAN OF CARE. CALL LIGHT IN REACH. BED LOWERED AND LOCKED. BED RAILS UP X1.
--- NOTE | 2018-06-16 21:12 | NUR ---
PB 179/95 HYDRALAZINE GIVEN ORDERED.
--- NOTE | 2018-06-16 21:20 | NUR ---
PT TEMP 101.0. CALLED FIELD TECHNICIAN DOCTOR. NEW ORDERS PUT IN BLOOD CULTURE, IV LEVAQUIN, AND TYLENOL. GIVEN AT THIS TIME. WILL RECHECK TEMP SHORTLY.
[2018-06-16 21:34] VITALS: BP 179/95
[2018-06-17] VITALS (13 sets, daily range): BP systolic 35–163; BP diastolic 63–94
[2018-06-17 05:41] LABS: BASOPHILS 0.3 % (0-2); EOSINOPHILS 2.7 % (0-7); HEMATOCRIT 34.7 % (42.0-54.0); HEMOGLOBIN 12.1 g/dL (13.5-17.5); IMMATURE GRANULOCYTES 0.1 % (0-5); LYMPHOCYTES 12.5 % (15-50); MCH 28.5 pg (26.0-34.0); MCHC 34.9 g/dL (31.0-37.0); MCV 81.8 fL (80.0-100.0); MEAN PLATELET VOLUME 8.9 fL (7.4-10.4); MONOCYTES 9.1 % (2-11); NEUTROPHILS 75.3 % (40-80); PLATELET COUNT 193 10x3/uL (130-400); RBC 4.24 10x6/uL (4.20-6.10); RDW 12.4 % (11.5-14.5); WBC 7.3 10x3/uL (4.8-10.8)
--- NOTE | 2018-06-17 05:51 | NUR ---
I have reviewed this patient and I concur with the Shift Assessment completed by the Licensed Practical Nurse today this shift.
[2018-06-17 06:06] LABS: ALBUMIN 3.2 g/dL (3.4-5.0); ANION GAP 8.3 mmol/L (8-16); BILIRUBIN - TOTAL 0.79 mg/dL (0.2-1.3); CALCIUM 8.4 mg/dL (8.5-10.1); CARBON DIOXIDE 31.6 mmol/L (21.0-32.0); CREATININE - SERUM 1.1 mg/dL (0.6-1.3); POTASSIUM - SERUM 3.9 mmol/L (3.5-5.1); PROTEIN - SERUM 6.8 g/dL (6.4-8.2)
--- NOTE | 2018-06-17 07:25 | NUR ---
PT RESTING IN BED, EYES CLOSED. RESPIRATIONS EVEN AND UNLABORED. AROUSES TO VOICE. AT BEDSIDE. ALERT AND ORIENTED. UP AD EFRAIN. LISBETH WILKINS SCHEDULED FOR TODAY, PT NPO. HIBICLEMEGE DONE EARLY THIS AM. SCDS PRESENT. IV TO LEFT AC, NS INFUSING @ 125ML/HR. SITE PATENT WITHOUT REDNESS OR SWELLING. MORPHINE RADIO ELECTRICIAN 1-10-10. PT DENIES ANYTHING FURTHER AT THIS TIME CALL LIGHT IN REACH. CALL LIGHT IN REACH. WILL CONTINUE TO MONITOR.
--- NOTE | 2018-06-17 12:04 | NUR ---
PT TAKEN TO SURGERY, PREOP MEDS GIVEN.
--- NOTE | 2018-06-17 15:05 | NUR ---
RETURNED FROM SURGERY. A/O X3. 5 LAP SITES TO ABDOMEN. FAMILY AT BEDSIDE. DENIES NEEDS.
--- NOTE | 2018-06-17 18:25 | NUR ---
PT RESTING IN BED, EYES OPEN. AT BEDSIDE. NO C/O PAIN. NO S/S OF ACUTE DISTRESS NOTED. PT DENIES ANYTHING FURTHER AT THIS TIME. CALL LIGHT IN REACH. WILL CONTINUE TO MONITOR.
--- NOTE | 2018-06-17 19:45 | NUR ---
PT ALERT AND ORIENTED. REQUESTING PAIN MEDICATION. EDUCATED PT THAT PAIN MEDICINE WAS DUE AT 2035. ABDOMEN SLIGHTLY TENDER TO PALPATION. LAP SITES WITH BANDAIDS AND STERI STRIPS. NO DRAINAGE. CALL LIGHT IN REACH. DENIES FURTHER NEEDS AT THIS TIME.
--- NOTE | 2018-06-18 01:20 | NUR ---
I have reviewed this patient and I concur with the Shift Assessment completed by the Licensed Practical Nurse today this shift.
[2018-06-18 05:45] VITALS: BP 154/86
[2018-06-18 06:01] LABS: BASOPHILS 0.3 % (0-2); EOSINOPHILS 3.6 % (0-7); HEMATOCRIT 33.5 % (42.0-54.0); HEMOGLOBIN 11.6 g/dL (13.5-17.5); IMMATURE GRANULOCYTES 0.2 % (0-5); LYMPHOCYTES 15.6 % (15-50); MCH 28.3 pg (26.0-34.0); MCHC 34.6 g/dL (31.0-37.0); MCV 81.7 fL (80.0-100.0); MEAN PLATELET VOLUME 9.4 fL (7.4-10.4); MONOCYTES 8.1 % (2-11); NEUTROPHILS 72.2 % (40-80); PLATELET COUNT 217 10x3/uL (130-400); RDW 12.4 % (11.5-14.5); WBC 5.8 10x3/uL (4.8-10.8)
[2018-06-18 06:37] LABS: ANION GAP 9.3 mmol/L (8-16); BILIRUBIN - TOTAL 0.61 mg/dL (0.2-1.3); CALCIUM 8.1 mg/dL (8.5-10.1); CARBON DIOXIDE 29.5 mmol/L (21.0-32.0); CREATININE - SERUM 1.1 mg/dL (0.6-1.3); POTASSIUM - SERUM 3.8 mmol/L (3.5-5.1); PROTEIN - SERUM 6.2 g/dL (6.4-8.2)
--- NOTE | 2018-06-18 08:00 | NUR ---
ALERT AND ORIENTED STERISTRIPS INTACT WITH BS NOTED X4. IV DSICONTINUED WITH ORDER FOR DISCHARGE. UP ADLIIB WITH NO COMPLAINTS NOTED.
[2018-06-18 09:10] VITALS: BP 150/80
[2018-06-18] MEDS ORDERED: COLACE100 MG PO (10:42)
[2018-06-18] MEDS ORDERED: HYDROCODON-ACE1 EAC7 PO (10:43)
--- NOTE | 2018-06-18 11:15 | NUR ---
PT DISCHARGED UNDER CARE OF FAMILY AND VERBALIZED UNDERSTANDING OF DISCHARGE INSTRUCTIONS. STABLE AT DISCHARGE.
--- NOTE | 2018-06-24 14:06 | MORECARE ---
CASE MANAGEMENT DISCHARGE SUMMARY PATIENT: JAELYN BAKER UNIT: [id number] ADM DATE: 06/15/18 AGE: 58 : 64 SEX: M ROOM/BED: D.2238 AUTHOR: DOLORESDOC PHYSICIAN: REFERRING PHYSICIAN: ANATOLIY MARLOW MD DATE OF SERVICE: 06/24/18 Discharge Plan Patient Name: JAELYN BAKER [facility] : 1960 Planned Disposition: Home Anticipated Discharge Date: Discharge Date: 06/18/2018 Expected LOS: 0 Initial Reviewer: [email or web address] Initial Review Date: 06/15/2018 Generated: 06/24/18 3:06 pm DCP- Discharge Planning Updated by [email or web address]: Lucinda Pierre on 06/15/18 2:[address] CM met with patient to discuss dc plans/needs. Patient is in agreement to proceed with assessment with , Nadine present. Patient is alert/oriented, gives permission to complete CM assessment. PCP: Dr. Marlow. Pharmacy: [facility] (by [employer]). Emergency contact: Nadine Baker () [phone]. Independent/Partial ADL's: Independent. HHS: None. DME: None. Patient/ denies need for additional services upon discharge and feels safe returning to previous environment with . Patient denies being hospitalized within the past 30 days. Denies use of community resources BRICK GRADER. Transportation at time of discharge: Nadine Baker () [phone]. DCPIA - Discharge Planning Initial Assessment Updated by [email or web address]: Lucinda Pierre on 06/15/18 3:22 pm * Is the patient Alert and Oriented? Yes * PCP Dr. Marlow * Pharmacy [facility] ([facility] * Preadmission Environment Home with Family * ADLs Independent * Equipment None * Other Equipment None reported * List name and contact numbers for known caregivers / representatives who currently or will assist patient after discharge: Nadine Baker () [phone] * Verbal permission to speak to the caregivers and representatives has been obtained from the patient. Yes * Community resources currently utilized None * Please name any agencies selected above. NA * Additional services required to return to the preadmission environment? No * Can the patient safely return to the preadmission environment? Yes * Has this patient been hospitalized within the prior 30 days at any hospital? No Last DP export: 06/15/18 2:33 pm Patient Name: JAELYN BAKER Page 22946 at 1406 All edits/amendments must be made on the electronic document DICTATION DATE: 06/24/181404 PSYCH THERAPIST: LOLIS 06/24/181404 RPT#: [id number] DC DATE:06/18/18 STATUS: DIS IN [facility] [address] [place] [address] END OF REPORT
== END 2018-06-18 11:15 | disposition home or self-care (01) ==
LOC: D.ER 21:38 → D.MS 06-15 02:26 → D.EDHOLD 06-15 02:26 → OBSVTIME 06-15 02:26 → D.EDHOLD 06-15 02:26 → D.MS 06-15 14:57
PROVIDERS: Family Medicine; ADMIT Family Medicine; ATTEND Family Medicine
DX: K82.8 Other specified diseases of gallbladder (principal); K76.0 Fatty (change of) liver, not elsewhere classified; E86.0 Dehydration; I25.10 Atherosclerotic heart disease of native coronary artery without angina pectoris; M19.90 Unspecified osteoarthritis, unspecified site; K57.90 Diverticulosis of intestine, part unspecified, without perforation or abscess without bleeding

== ENCOUNTER 2018-09-12 12:30 | Outpatient (CLI) | payer BC ==
[~2018-09-12] VITALS: Ht 188 cm; Wt 93.2 kg
--- NOTE | ~2018-09-12 | DS ---
PATIENT:JAELYN BAKER :64 MEDICAL RECORD: [id number] DISCHARGE SUMMARY ADMISSION DATE: 09/12/18 DISCHARGE DATE: 09/13/18 DATE OF DISCHARGE: 09/13/2018 DIAGNOSES: 1. Unstable angina. 2. Coronary artery disease. 3. Percutaneous transluminal coronary angioplasty and stent to the left anterior descending diagonal this admission. 4. Hypertension. 5. Hyperlipidemia. HOSPITAL COURSE: Mr. Baker presents with unstable anginal symptomatology, found to have significant disease of LAD diagonal 1 and 2, underwent successful PTCA and stent of these territories, had no further anginal symptomatology. Discharged home with the addition of aspirin and Plavix to his medical regimen. Follow up with [facility] in 1 month. TRANSINT:[id number] Voice Confirmation ID: [id number] DOCUMENT ID: [id number] SHIRAZ BOLAND MD CC: [id number] DICTATION DATE: 09/13/18 1027 COST CONSULTANT: 09/13/18 2252 DEP CLI 09/13/18 [id number] [place] [id number]
--- NOTE | ~2018-09-12 | HEMODYNAMI ---
PATIENT:JAELYN BAKER MEDICAL RECORD: [id number] : 64 LOCATION:[facility] ADMISSION DATE: 09/12/18 Generatedon:09/12/201816:31 Patient name: JAELYN BAKER Patient #: [id number] SSN: [id number] : 1960 Date of study: 09/12/2018 Page: Of Hemodynamic Procedure Report Patient Data Patient Demographics Procedure consent was obtained First Name: JAELYN Gender: Male Last Name: OLIVIA : 1960 [facility] Initial: HAL Age: 58 year(s) Patient #: [id number] Race: SSN: [id number] Additional ID: [id number] Contact details [address]: [address] [place] [address] COURT State: [place] City: [place] Zip code: [address] Past Medical History Allergies Allergen Reaction Date Comments Reported Other allergy 10/15/2017 Benadryl Other allergy 11/04/2017 Benadryl Other allergy 09/12/2018 DIPHENHYDRAMINE Admission Admission Data Admission Date: 09/12/2018 Admission Time: 12:30 Arrival Date: 09/11/2018 Arrival Time: 0:00 Admit Source: Emergency Insurance Payor: Private department health insurance [facility] #: [id number] Height (in.): 73.62 BSA: 2.14 (m2) Height (cm.): 187 BMI: 25.17 (kg/m2) Weight (lbs.): 194.01 Weight (kg.): 88 Lab Results Lab Result Date: 09/12/2018 Lab Result Time: 1:00 Biochemistry Name Units Result Min Max BUN mg/dl 21 --(----)-* 7 18 Creatinine mg/dl 1.3 --(---*)-- 0.6 1.3 CBC Name Units Result Min Max Hematocrit % 34.1 *-(----)-- 42 54 Hemoglobin g/dl 34.1 --(----)-* 13.5 17.5 Procedure Procedure Types Cath Procedure Diagnostic Procedure [facility] w/Coronaries Sedation Charges Moderate Sedation up to 15 minutes PCI Procedure Coronary Stent Coronary Stent Initial Coronary Stent Additional Procedure Description Procedure Date Procedure Date: 09/12/2018 Procedure Start Time: 16:09 Procedure End Time: 16:30 Procedure Staff Name Function Hayden Collado MD Performing Physician Ross Thomas RT Monitor Darryn Green RT Scrub Claudia West RT Scrub Tom Evans RN Nurse Daija Franklin RN Champagne Maker Indication Angina CAD Previous stent placement Procedure Data Cath Procedure Fluoroscopy Diagnostic fluoroscopy Total fluoroscopy Time: 4.7 time: 4.7 min min Diagnostic fluoroscopy Total fluoroscopy dose: 720 dose: 720 mGy mGy Contrast Material Contrast Material Type Amount (ml) Isovue 300 112 Entry Location Entry Primary Successful Side Size Upsize Upsize Entry Closure Mehta ccessful Closure Location (Fr) 1 (Fr) 2 (Fr) Remarks Device Remarks Radial Right 6 Fr Mechanical artery Short Compression Estimated blood loss: 10 ml Diagnostic catheters Device Type Used For End Catheter Placement DIAGNOSTIC [place] 110cm 5 Procedure Fr catheter ([id number]) Procedure Complications No complications Procedure Medications Medication Administration Route Dosage 0.9% NaCl I.V. 100 ml/hr Oxygen etCO2 Nasal cannula 2 l/min Lidocaine 2% added to field 20 Heparin Flush Bag added to field 2 bags (1000units/500ml NS) Versed I.V. 2 mg Fentanyl I.V. 100 mcg Versed I.V. 2 mg Fentanyl I.V. 100 mcg Fentanyl I.V. 50 mcg Potassium 30 Heparin Bolus I.V. 4000 units Lopressor I.V. 5 mg Fentanyl I.V. 50 mcg Hemodynamics Rest BSA: 2.14 (m2) HGB: 34.1 (g/dl) O2 Consumption: Estimated: 277.34 (ml/min) O2 Co nsumption indexed: Estimated:129.6 (ml/min/m) Heart Rate: 100 (bpm) Snapshots Pre Cath Intra NCS Post Cath Vital Signs Time Heart Resp SPO2 etCO2 NIBP (mmHg) Rhythm Pain Sedation Rate (ipm) (%) (mmHg) Status Level (bpm) 15:56:42 96 13 98 33 159/99(120) NSR 0 (11) 10(A) , No pain 16:01:00 93 12 100 26.2 169/94(124) NSR 0 (11) 10(A) , No pain 16:05:20 88 11 98 35.9 144/90(111) NSR 0 (11) 10(A) , No pain 16:09:38 87 10 96 27.6 147/88(111) NSR 0 (11) 10(A) , No pain 16:13:50 80 13 96 32.9 140/84(101) NSR 0 (11) 10(A) , No pain 16:18:47 73 14 98 35.2 139/83(108) NSR 0 (11) 10(A) , No pain 16:22:59 82 10 97 31.4 139/85(105) NSR 0 (11) 10(A) , No pain 16:27:17 75 13 96 32.2 137/83(103) NSR 0 (11) 10(A) , No pain Medications Time Medication Route Dose Verified Delivered Reason Notes Effectiveness by by 16:03:14 0.9% NaCl I.V. 100 Hayden Daija used for ml/hr Tobias Franklin derrick builder 16:03:20 Oxygen etCO2 2 Hayden Daija used for Nasal l/min Tobias Franklin procedure cannula RN 16:03:25 Lidocaine 2% added 20ml Hayden Hayden for local to vial Tobias Collado MD anesthetic field 16:03:30 Heparin Flush added 2 Hayden Hayden used for Bag to bags Tobias Collado MD procedure (1000units/500ml field NS) 16:03:41 Versed I.V. 2 mg Hayden Daija for sedation Tobias Franklin RN 16:03:46 Fentanyl I.V. 100 Hayden Daija for sedation mcg Tobias Franklin RN 16:07:36 Versed I.V. 2 mg Hayden Daija for sedation Tobias Franklin RN 16:07:41 Fentanyl I.V. 100 Hayden Daija for sedation mcg Tobias Franklin RN 16:10:09 Potassium PO 30 Hayden Santos Per physician mEq Tobias Evans RN 16:12:57 Fentanyl I.V. 50 Hayden Daija for sedation mcg Tobias Franklin RN 16:18:22 Heparin Bolus I.V. 4000 Hayden Daija for verif ied units Tobias Franklin anticoagulation with Dr. ENA Collado 16:18:37 Lopressor I.V. 5 mg Hayden Choe Per physician Tobias Franklin RN 16:20:08 Fentanyl I.V. 50 Hayden Diaza for sedation mcg Tobias Franklin vault teller Log Time Note 15:35:12 Informed consent obtained and on chart 15:41:59 Lab Result : Hemoglobin 34.1 g/dl ::59 Lab Result : Hematocrit 34.1 % 15: Lab Result : BUN 21 mg/dl ::59 Lab Result : Creatinine 1.3 mg/dl 15:42:09 Diagnostic Cath Status : Urgent 15:44:07 Admit Source: Emergency department 15:44:10 ACC Patient presents with Unstable Angina CCS Anginal Class 3--Marked limitation of physical activity, angina occurs with ordinary activity.. 15:44:18 ACCPatient has been prescribed/administered the following anti-anginal medication within the last 2 weeks: Calcium Channel Blockers, Long-Acting Nitrates 15:44:22 Procedure Status Urgent Heart Cath (IP). 15:44:24 Darryn Green RT(R) sent for patient. Start room use. 15:44:25 Time tracking: Regular hours (M-F 7:00 - 5:00) 15:44:29 Plan of Care:Hemodynamics will remain stable., Cardiac rhythm will remain stable., Comfort level will be maintained., Respiratory function will remain adequate., Patient/ family verbilizes understanding of procedure., Procedure tolerated without complication., Recovers from procedure without complications.. 15:44:33 H&P Date Dictated: 09/12/2018 Within 30 days and on chart.. 15:44:35 Lab results completed and on chart. 15:48:31 Patient Weight : 194.01 lbs 15:48:34 Patient Height : 73.62 inches 15:48:46 Insurance Payor : Private health insurance 15:49:10 Arrival Date: 09/11/2018 12:00:00 AM 15:49:44 Indication : Angina 15:49:59 Indication : CAD 15:50:03 Indication : Previous stent placement 15:50:14 Patient received from ED to CCL 1 Alert and oriented. Tansferred to table in Supine position. 15:50:15 Warm blankets applied, and michele hugger turned on for patient comfort. 15:50:16 Correct patient and procedure confirmed by team. 15:50:16 ECG and BP/O2 sat monitors applied to patient. 15:50:18 Pre-procedure instructions explained to patient. 15:50:18 Pre-op teaching completed and patient verbalized understanding. 15:50:20 Family in waiting room. 15:50:22 Patient NPO since Midnight. 15:50:42 Patient allergic to Other allergyDIPHENHYDRAMINE 15:55:27 Vital chart was started 15:56:15 Rhythm: sinus rhythm 15:56:16 Full Disclosure recording started 15:56:22 Baseline sample Acquired. 15:56:27 Is the patient allergic to Iodine/contrast media? No. 15:56:29 Is patient on blood thinner?No 15:56:30 Patient diabetic? Yes. 15:56:33 If diabetic: On Metformin? No 15:56:40 Previous problem with sedation/anesthesia? No ? 15:56:41 Snore? Yes 15:56:42 Sleep apnea? Yes 15:56:43 Deviated septum? No 15:56:44 Opens mouth fully? Yes 15:56:45 Sticks out tongue? Yes 15:56:49 Airway obstruction? No ? 15:56:51 Dentures? Yes IN 15:57:06 Pre procedure: right dorsailis pedis pulse 1+ Palpable, but thready & weak; easily obliterated 15:57:08 Modified Herson's test Ulnar < 7 seconds 15:57:10 Patient pain scale 0/10 ?. 15:57:14 IV patent on arrival in left forearm with 0.9% NaCl at KVO. 15:57:18 Right Radial & Right Groin area was prepped with chlora-prep and draped in sterile fashion 15:57:19 Alarms reviewed by R. N. 15:57:19 Sharps counted by scrub and verified by R.N. 15:57:29 Use device set Radial Dx or PCI 15:57:31 ACIST Syringe (35440) opened to sterile field. 15:57:32 Medline Cath Pack ([id number]) opened to sterile field. 15:57:32 Bag Decanter (2002) opened to sterile field. 15:57:33 ACIST Hand Control (98270) opened to sterile field. 15:57:33 ACIST Manifold (20753) opened to sterile field. 15:57:34 Tegaderm 4 x 4 (1626W) opened to sterile field. 15:57:36 EMERALD Guide Wire (345-027) opened to sterile field. 15:57:37 SHEATH 6FR RAIN (5743234) opened to sterile field. 15:57:38 MBrace Wrist Support ([id number]) opened to sterile field. 16:02:09 Physician arrived 16:02:10 --------ALL STOP TIME OUT------ 16:02:10 Final Timeout: patient, procedure, and site verified with staff and physician. All members of the team are in agreement. 16:02:12 Right Radial & Right Groin site verified by team. 16:02:15 Fire Safety Assessment: A--An alcohol-based skin anteseptic being used preoperatively., C--Open oxygen or nitrous oxide is being used., D--An ESU, laser, or fiber-optic light is being used. 16:02:18 Physical assessment completed. ASA score P 2 - A patient with mild systemic disease as per Hayden Collado MD. 16:02:25 2) 60-89 Mildly reduced kidney function, and other findings (as for stage 1) point to kidney disease. 16:02:45 Maximum allowable contrast dose (3.7 X eGFR X 0.75)169 ml. 16:02:48 Sedation plan: IV Moderate Sedation Medication:Versed, Fentanyl 16:03:14 0.9% NaCl 100 ml/hr I.V. was administered by Daija Franklin RN; used for procedure; 16:03:20 Oxygen 2 l/min etCO2 Nasal cannula was administered by Daija Franklin RN; used for procedure; 16:03:25 Lidocaine 2% 20ml vial added to field was administered by Hayden Collado MD; for local anesthetic; 16:03:30 Heparin Flush Bag (1000units/500ml NS) 2 bags added to field was administered by Hayden Collado MD; used for procedure; 16:03:41 Versed 2 mg I.V. was administered by Daija Franklin RN; for sedation; 16:03:46 Fentanyl 100 mcg I.V. was administered by Daija Franklin RN; for sedation; 16:07:28 Procedure started. 16:07:36 Versed 2 mg I.V. was administered by Daija Franklin RN; for sedation; 16:07:41 Fentanyl 100 mcg I.V. was administered by Daija Franklin RN; for sedation; 16:09:01 Local anesthetic to right radial artery with Lidocaine 2% by Hayden Collado MD.INITIAL ACCESS ONLY 16::09 A 6 Fr Short sheath was inserted into the Right Radial artery 16:09:42 Zero performed for pressure channel P1 16:10:09 Potassium 30 mEq PO was administered by Tom Evans RN; Per physician; 16:10:37 A DIAGNOSTIC [place] 110cm 5 Fr catheter ([id number]) was advanced over the wire and used for Procedure. 16:12:48 LV gram done using HADDAD 16:12:53 Injector settings: Ml/sec: 5, Volume: 15, 16:12:57 Fentanyl 50 mcg I.V. was administered by Daija Franklin RN; for sedation; 16:12:58 LV hemodynamics recorded. 16:13:02 EF : 60 % 16:13:05 LCA angiography performed. 16:14:45 INFLATOR Merit BasixCompak (RY1066) opened to sterile field. 16:14:45 CHOICE PT Extra Support 182cm wire ([id number]) opened to sterile field. 16:14:50 GUIDE 6FR XBLAD 3.5 catheter ([id number]) opened to sterile field. 16:14:55 RCA angiography performed. 16:15:50 Pre PCI Site: [place] Diag1 has 85% stenosis. 16:15:55 Pre PCI Site: [place] Diag2 has 90% stenosis. 16:16:02 Catheter exchanged over wire. 16:16:03 Catheter exchanged over wire. 16:17:56 CHOICE PT ES wire advanced. 16:17:57 Wire advanced across lesion. 16:18:22 Heparin Bolus 4000 units I.V. was administered by Daija Franklin RN; for anticoagulation; verified with Dr. Collado 16:18:35 Inflate balloon Inflation number: 1 A EUPHORA 2.5 x 10 Balloon ([id number]) was prepped and advanced across the 2nd Diag , then inflated to 11 NARCISO for 0:10 (min:sec) . 16:18:37 Lopressor 5 mg I.V. was administered by Daija Franklin RN; Per physician; 16:19:04 ACCDominant side:Right 16:19:09 Balloon removed over the wire. 16:20:08 Fentanyl 50 mcg I.V. was administered by Daija Franklin RN; for sedation; 16:20:30 Place stent Inflation Number: 2 A BERTHA RX 2.5 x 08 stent ([id number]) was prepped and advanced across the 2nd Diag . The stent was deployed at 13 NARCISO for 0:10 (min:sec) . 16:20:52 Stent catheter was removed intact over wire. 16:21:02 Wire redirected to [address] ST DIAG. 16:21:27 Wire advanced across lesion. 16:22:48 Place stent Inflation Number: 1 A BERTHA RX 2.5 x 12 stent ([id number]) was prepped and advanced across the 1st Diag . The stent was deployed at 13 NARCISO for 0:10 (min:sec) . 16:23:24 Stent catheter was removed intact over wire. 16:23:25 Wire removed. 16:23:25 Guide catheter removed. 16:23:29 TR BAND Standard ([id number]) opened to sterile field. 16:24:07 Sheath removed intact; hemostasis achieved with Mechanical Compression to the Right Radial artery. 16:24:08 Procedure ended.(Physican Out) 16:24:58 Fluoroscopy time 04.70 minutes. 16:25:02 Fluoroscopy dose: 720 mGy 16:25:02 Flurop Dose total: 720 16:25:08 Dose Area Product 81772 mGy/cm. 16:25:14 Contrast amount:Isovue 300 112ml. 16:25:18 Maximum allowable dose exceeded? No. 16:25:19 Sharps counted by scrub and verified by R.N. 16:25:27 TR band inflated with 12cc of air. 16:25:28 Insertion/operative site no bleeding no hematoma. 16:25:51 ACC Pre-intervention LATOSHA Flow is 3. 16:26:10 Post PCI Site: [place] Diag1 has 0% stenosis. 16:26:17 Post PCI Site: [place] Diag2 has 0% stenosis. 16:26:22 ACC Post-intervention LATOSHA Flow is 3. 16:26:36 Post right radial artery:stable, soft, clean and dry 16::38 Post Procedure Pulses reassessed and unchanged 16:26:44 Post-procedure physical assessment completed. ASA score P 2 - A patient with mild systemic disease as per Hayden Collado MD. 16:26:55 Post procedure rhythm: unchanged. 16:29:15 Estimated blood loss: 10 ml 16:29:17 Post procedure instruction explained to patient.Patient verbalizes understanding. 16:29:17 Patient needs reinforcement of post procedure teaching. 16:29:51 Procedure type changed to Cath procedure, Diagnostic procedure, LHC, LHC w/Coronaries, Sedation Charges, Moderate Sedation up to 15 minutes, PCI procedure, Coronary Stent, Coronary Stent Initial, Coronary Stent Additional 16:30:20 Procedure and supply charges have been captured, reviewed, submitted and are correct. 16:30:26 Procedure Complication : No complications 16:30:28 Vital chart was stopped 16:30:30 See physician's report for complete and final results. 16:30:34 Report given to PCU. 16:30:36 Patient transfered to PCU with Stretcher. 16:30:38 Procedure ended. 16:30:38 Full Disclosure recording stopped 16:30:43 End room use (Document Last) Intervention Summary Intervention Notes Time ActionType Lesion and Equipment Used Action# Pressure Duration Attributes 16:18:35 Inflate 2nd Diag EUPHORA 2.5 x 1 11 00:10 balloon 10 Balloon ([id number]) 16:20:30 Place stent 2nd Diag BERTHA RX 2.5 x 2 13 00:10 08 stent ([id number]) 16:22:48 Place stent 1st Diag BERTHA RX 2.5 x 1 13 00:10 12 stent ([id number]) Device Usage Item Name Manufacture Quantity Catalog Number Hospital Part Current M inimal Lot# / Charge Number Stock Stock Serial# Code ACIST Syringe Acist 1 52074 642981 149545 332401 2 0 (30084) Medical Systems Inc Medline Cath Medline 1 [id number] 562177 19426 337749 5 Pack ([id number]) Bag Decanter Microtek 1 122530 62643 076734 5 () Medical Inc. ACIST Hand Acist 1 55769 072348 854913 311801 5 Control Medical (22388) Systems Inc ACIST Manifold Acist 1 82342 167117 982173 495309 5 (32981) Medical Systems Inc Tegaderm 4 x 4 3M 1 1626W 737694 182630 910180 5 (1626W) EMERALD Guide Cardinal 1 502-455 359114 068366 718177 5 Wire (502-455) Health SHEATH 6FR Cardinal 1 9304768 245683 4514762 320054 5 RAIN (2842849) Health MBrace Wrist Advanced 1 140-0250-00 177188 74203 507347 5 Support Vascular ([id number]) Dynamics DIAGNOSTIC Terumo 1 40-5013 555247 208244 038784 5 [place] 110cm 5 Fr catheter (900778) INFLATOR Merit Merit 1 EP7143 863825 864004 896163 1 5 [place] (QU8830) CHOICE PT [place] 1 [id number] 392006 715945 752834 5 Extra Support Scientific 182cm wire ([id number]) GUIDE 6FR Cardinal 1 68292815 124111 262137 243298 1 0 XBLAD 3.5 Health catheter (19532221) EUPHORA 2.5 x Medtronic 1 [id number] 271515 329822 207452 5 [id number] 10 Balloon ([id number]) BERTHA RX 2.5 x Medtronic 1 [id number] 816855 6018183 579682 5 [id number] 08 stent ([id number]) BERTHA RX 2.5 x Medtronic 1 [id number] 940562 6582562 943196 5 [id number] 12 stent ([id number]) TR BAND Terumo 1 [id number] 778944 979152 314968 4 0 Standard ([id number]) Signature Audit Ullin Stage Time Signature Unsigned Intra-Procedure 09/12/2018 Ross Thomas 4:30:56 PM RT(R) Signatures Performing Physician : Signature : Hayden Collado MD Date : Time : Monitor : Ross Thomas RT Signature : Date : Time : Nurse : oTm Evans RN Signature : Date : Time : [address] [place] [address]
--- NOTE | ~2018-09-12 | OP ---
PATIENT NAME: JAELYN BAKER MEDICAL RECORD: [id number] :64 LOCATION:D.M2 D.2117 ADMISSION DATE: SURGEON: SHIRAZ BOLAND MD DATE OF OPERATION: 09/12/2018 PROCEDURES: 1. PTCA and stent, LAD first diagonal. 2. PTCA and stent, LAD second diagonal. 3. Left heart catheterization. 4. Selective coronary angiography. 5. Left ventriculogram. INDICATION: Unstable angina and coronary artery disease. PROCEDURE IN DETAIL: After informed consent was obtained with detailed description of risks and benefits as well as alternative therapies, the patient elected to proceed with angiogram and angioplasty. The right radial area was prepped and draped in normal sterile fashion. The right radial artery was cannulated via modified Seldinger technique with placement of 6-Yi sheath. All catheters were exchanged through this sheath. FINDINGS: The left ventriculogram performed in standard 30-degree HADDAD view reveals good cardiac wall motion throughout all segments. Overall ejection fraction is estimated at 60%. SELECTIVE CORONARY ANGIOGRAPHY: 1. Left main is with no significant angiographic disease. 2. Left anterior descending has previously placed stents. The previously placed stents in the LAD are widely patent; however, the first diagonal has 85% stenosis and is a large diagonal. The second diagonal has 95% stenosis and is a large diagonal. 3. Left circumflex has moderate irregularities, but no flow-limiting stenosis. 4. Right coronary has moderate irregularities, but no flow-limiting stenosis. PTCA AND STENT OF THE LAD DIAGONALS: First diagonal was addressed with a 2.5 x 12 mm [place]. Result was 0% residual stenosis. Second diagonal was addressed with a 2.5 x 8 mm Bernard. Result was 0% residual stenosis. OVERALL IMPRESSION: Successful PTCA and stent of LAD diagonal 1 and 2, both going from 85% to 95% initial stenoses to 0% residual. TRANSINT:[id number] Voice Confirmation ID: [id number] DOCUMENT ID: [id number] SHIRAZ BOLAND MD CC: [id number] DICTATION DATE: 09/12/18 1631 TOBACCO SIEVE OPERATOR: 09/12/18 1834 [facility] [address] [place] [address]
[~2018-09-12 12:30] MED LIST changes: +COLACE100 MG PO; +HYDROCODON-ACE1 EAC7 PO
[2018-09-12] MEDS ORDERED: HYDROCHLOROTH12.5 M1 PO (12:42)
[2018-09-12] MEDS ORDERED: ISOSORBIDE DINI10 MG PO (12:42)
[2018-09-12 13:05] LABS: BASOPHILS 0.2 % (0-2); EOSINOPHILS 0.4 % (0-7); HEMATOCRIT 34.1 % (42.0-54.0); HEMOGLOBIN 12.6 g/dL (13.5-17.5); IMMATURE GRANULOCYTES 0.1 % (0-5); LYMPHOCYTES 15.9 % (15-50); MCH 28.5 pg (26.0-34.0); MCV 77.1 fL (80.0-100.0); MEAN PLATELET VOLUME 9.1 fL (7.4-10.4); MONOCYTES 6.8 % (2-11); NEUTROPHILS 76.6 % (40-80); PLATELET COUNT 258 10x3/uL (130-400); RBC 4.42 10x6/uL (4.20-6.10); RDW 13.9 % (11.5-14.5); WBC 8.4 10x3/uL (4.8-10.8)
[2018-09-12 13:16] LABS: APTT 27.1 SECONDS (22.8-39.4); INR 1.06 (0.85-1.17); PROTIME 13.3 SECONDS (11.6-15.0)
[2018-09-12 13:31] LABS: ALBUMIN 4.3 g/dL (3.4-5.0); ALKALINE PHOSPHATASE 72 U/L (46-116); ALT (SGPT) 32 U/L (10-68); BILIRUBIN - TOTAL 0.37 mg/dL (0.2-1.3); CALCIUM 8.5 mg/dL (8.5-10.1); CARBON DIOXIDE 25.6 mmol/L (21.0-32.0); CHLORIDE - SERUM 99 mmol/L (98-107); CKMB 0.9 U/L (0.0-3.6); CREATINE KINASE 67 UL (21-232); CREATININE - SERUM 1.3 mg/dL (0.6-1.3); MAGNESIUM - SERUM 1.9 mg/dL (1.8-2.4); PROTEIN - SERUM 7.8 g/dL (6.4-8.2); SODIUM 136 mmol/L (136-145); TROPONIN-I < 0.017 ng/mL (0.000-0.060); UREA NITROGEN 21 mg/dL (7-18); eGFR NON AFRICAN AMERICAN 61 mL/min (90-120)
[2018-09-12 13:37] LABS: CALC OSMOLALITY 281 mosm/kg (275-300); GLUCOSE 225 mg/dL (74-106)
[2018-09-12 13:38] LABS: POTASSIUM - SERUM 2.9 mmol/L (3.5-5.1)
--- NOTE | 2018-09-12 16:31 | HP ---
PATIENT: JAELYN BAKER MEDICAL RECORD: [id number] ACCOUNT: [id number] LOCATION:[facility] : 64 ADMISSION DATE: 09/12/18 PCP: ANATOLIY NORRIS MD HISTORY AND PHYSICAL EXAMINATION DIAGNOSES: 1. Unstable angina. 2. Coronary artery disease. 3. Previous multivessel percutaneous transluminal coronary angioplasty stent. 4. Hypertension. HISTORY OF PRESENT ILLNESS: Mr. Baker is well known to us, has a past history of coronary artery disease, multivessel PTCA stent, had chest pain started last week when he was visiting [email or web address]. He just thought that it was secondary to the humidity. His chest pain has persisted, it has progressed in an extremely rapid unstable fashion. He is having class IV rest pain at this time. It is just like that of his previous angina. His EKG has nonspecific ST-T abnormalities in the lateral leads, but no acute ST changes. He is having active chest pain at 8/10 at this point associated with shortness of breath, dyspnea on exertion. PHYSICAL EXAMINATION: GENERAL APPEARANCE: Well-nourished, well-developed, appears stated age. Level of distress, comfortable. PSYCHIATRIC: Mental status, alert, normal affect. Orientation, oriented to time, place and person. EYES: Lids and conjunctiva, noninjected. No discharge, no pallor. ENT: Lips, teeth, gums, normal dentition. Oropharynx, no cyanosis, no pallor. NECK: Carotid arteries, bilateral normal upstroke, no bruits, no thrills. JUGULAR VEINS: No jugular venous pressure or distention. CERVICAL LYMPH NODES: Nontender, nonenlarged. THYROID: Not enlarged. Nontender. No nodules. LUNGS: Respiratory effort, unlabored. CHEST: Normal curvature. No thoracic deformity. No chest wall tenderness. Percussion, resonant. Auscultation, clear. No wheezes, no rales, no rhonchi. CARDIOVASCULAR: Precordial exam, nondisplaced. No heaves or pericardial thrills. Rate and rhythm, regular. Heart sounds, normal S1, normal S2. No S3, no gallop, no rub. Systolic murmur, not heard. Diastolic murmur, not heard. EXTREMITIES: No cyanosis, no edema. Peripheral pulses, full and equal in all extremities, except as noted. No bruits appreciated. ABDOMEN: Soft, nondistended. Normal aorta. No bruit. Nontender. No masses. Liver, nontender, no hepatomegaly. Spleen, nontender, no splenomegaly. MUSCULOSKELETAL: No joint tenderness. No joint swelling. No erythema. NEUROLOGICAL: Normal gait, normal strength, normal tone. SKIN: Warm and dry. OVERALL IMPRESSION: Chest discomfort compatible with angina in a rapidly unstable fashion now class IV unstable angina in a patient with a past history of coronary artery disease, multivessel disease, aspirin in the past 24 hours. He has a family history of coronary artery disease, history of hyperlipidemia and hypertension. We will proceed with coronary angiography. Further care depends upon the findings of the angiography. TRANSINT:[id number] Voice Confirmation ID: [id number] DOCUMENT ID: [id number] HISTORY AND PHYSICAL [id number] JAELYN BAKER JEFFREY MD at 1631 CC: [id number] DICTATION DATE: 09/12/18 1253 FREEZING ROOM WORKER: 09/12/18 132[id number] [place] [address]
--- NOTE | 2018-09-12 16:51 | NUR ---
TRANSFER FROM SQUAD [facility]OSS. VS WNL. RIGHT WRIST STABLE WITH TR BAND INTACT. WILL MONITOR.
[2018-09-12 16:59] VITALS: BP 125/72; Ht 188 cm; Wt 93.2 kg
--- NOTE | 2018-09-12 19:44 | NUR ---
RECIEVED UP IN BED WITH EYES OPEN AND TV ON. ALERT AND ORIENTED X4. UP AD EFRAIN AT THIS TIME. TR BAND TO RIGHT WRIST. IV TO RIGHT FA SL. DSG INTACT WITH NO REDNESS AR SWELLING. C/O CHEST PAIN AT 5 AND STATED HE HAD SOME CHEST DISCOMFORT LAST TIME HE HAD CATH. REQUESTING PAIN MEDICATION. MORPHINE GIVEN PER ORDERS WITH STATED RELIEF. DENIED ANY OTHER NEEDS.
[2018-09-12 20:00] VITALS: BP 138/73
[2018-09-13] VITALS: BP 139/80
[2018-09-13 04:00] VITALS: BP 138/84
[2018-09-13 08:13] VITALS: BP 153/93
--- NOTE | 2018-09-13 08:36 | NUR ---
CALLED IN WRITTEN SCRIPT OF PLAVIX 75 MG # 30 WITH 6 REFILLS TO [facility] [phone].
[2018-09-13] MEDS ORDERED: PLAVIX75 MG PO (08:46)
--- NOTE | 2018-09-13 09:15 | NUR ---
IV AND TELEMETRY DCD. DC PLANS GIVEN. UNDERSTANDING VOICED. ESCORTED TO CAR BY W/C.
== END 2018-09-13 09:16 | disposition home or self-care (01) ==
LOC: D.M2 12:30 → D.ER 12:30 → D.M2 16:41 → EDSTATUS 17:28 → D.M2 09-13 09:16
PROVIDERS: Emergency Medicine; ATTEND Internal Medicine Interventional Cardiology
DX: I25.110 Atherosclerotic heart disease of native coronary artery with unstable angina pectoris (principal); Z01.812 Encounter for preprocedural laboratory examination; Z95.5 Presence of coronary angioplasty implant and graft

== ENCOUNTER → 2018-12-06 17:02 | Outpatient (CLI) | payer BC ==
[2018-09-12 16:59] VITALS: BMI 25.1
[~2018-12-06 17:02] MED LIST changes: +BAYER CHEWABLE81 MG PO; +CRESTOR5 MG PO; +FLOMAX0.4 MG PO; +HYDROCHLOROTH12.5 M1 PO; +ISOSORBIDE DINI10 MG PO; +K-TAB10 MEQ PO; +METOPROLOL TART50 MG PO
[2018-12-06 18:33] LABS: CHOL - HDL RATIO 3.3 ratio (2.3-4.9); LDL-HDL RATIO 1.4 ratio (1.5-3.5)
== END | disposition home or self-care (01) ==
LOC: D.LABREF 17:02
PROVIDERS: ATTEND Internal Medicine Interventional Cardiology
DX: I25.10 Atherosclerotic heart disease of native coronary artery without angina pectoris (principal)

== ENCOUNTER 2019-01-19 10:54 | Outpatient (CLI) | payer BC ==
[~2019-01-19] VITALS: Ht 188 cm; Wt 84.1 kg
--- NOTE | ~2019-01-19 | HEMODYNAMI ---
PATIENT:JAELYN BAKER MEDICAL RECORD: [id number] : 64 [id number] ADMISSION DATE: 01/19/19 Generatedon:01/20/20198:21 Patient name: JAELYN BAKER Patient #: [id number] SSN: [id number] : 1960 Date of study: 01/19/2019 Page: Of Hemodynamic Procedure Report Patient Data Patient Demographics Procedure consent was obtained First Name: JAELYN Gender: Male Last Name: OLIVIA : 1960 [facility] Initial: HAL Age: 59 year(s) Patient #: [id number] Race: SSN: [id number] Additional ID: [id number] Contact details [address]: [address] [place] [address] COURT State: [place] City: [place] Zip code: [address] Past Medical History Allergies Allergen Reaction Date Comments Reported Other allergy 10/15/2017 Benadryl Other allergy 11/04/2017 Benadryl Other allergy 09/12/2018 DIPHENHYDRAMINE Admission Admission Data Admission Date: 01/19/2019 Admission Time: 10:54 Arrival Date: 01/19/2019 Arrival Time: 0:00 Admit Source: Other Insurance Payor: Private Room #: D.2120 health insurance [facility] #: [id number] Height (in.): 74 BSA: 2.1 (m2) Height (cm.): 187.96 BMI: 23.8 (kg/m2) Weight (lbs.): 185.39 Weight (kg.): 84.09 Lab Results Lab Result Date: 01/19/2019 Lab Result Time: 0:01 CBC Name Units Result Min Max Hematocrit % 39.6 -*(----)-- 42 54 Hemoglobin g/dl 13.9 --(*---)-- 13.5 17.5 Procedure Procedure Types Cath Procedure Diagnostic Procedure LHC LHC w/Coronaries FFR/IVUS FFR Initial Sedation Charges Moderate Sedation up to 30 minutes PCI Procedure PTCA PTCA Additional Coronary Atherectomy Atherectomy w/Stent Coronary Initial Hemochron ACT Test Procedure Description Procedure Date Procedure Date: 01/19/2019 Procedure Start Time: 14:17 Procedure End Time: 15:01 Procedure Staff Name Function Darryn Green RT Scrub Hayden Collado MD Performing Physician Aimee Peacock RT Scrub Yahir Carranza RN Nurse Janet Shah RT Monitor Claudia West RT Monitor Indication Chest pain Shortness of breath Procedure Data Cath Procedure Fluoroscopy Diagnostic fluoroscopy Total fluoroscopy Time: time: 13.3 min 13.3 min Diagnostic fluoroscopy Total fluoroscopy dose: dose: 1019 mGy 1019 mGy Contrast Material Contrast Material Type Amount (ml) Isovue 370 136 Entry Location Entry Primary Successful Side Size Upsize Upsize Entry Closure Mehta ccessful Closure Location (Fr) 1 (Fr) 2 (Fr) Remarks Device Remarks Radial Right 6 Fr Mechanical artery Short Compression Estimated blood loss: 10 ml Diagnostic catheters Device Type Used For End Catheter Placement DIAGNOSTIC [facility] 110cm 5 Procedure Fr catheter ([id number]) Procedure Complications No complications Procedure Medications Medication Administration Route Dosage 0.9% NaCl I.V. 100 ml/hr Oxygen etCO2 Nasal cannula 2 l/min Heparin Flush Bag added to field 2 bags (1000units/500ml NS) Lidocaine 2% added to field 20 Radial Cocktail added to field 1 syringe (Verapamil 2mg/Nitro 400mcg/Heparin 1500units) Versed I.V. 2 mg Fentanyl I.V. 100 mcg Versed I.V. 2 mg Fentanyl I.V. 100 mcg Versed I.V. 2 mg Radial Cocktail I.A. 1 syringe (Verapamil 2mg/Nitro 400mcg/Heparin 1500units) Heparin Bolus I.V. 4000 units Integrilin (Bolus I.V. 7.9 ml 2mg/ml) Integrilin (Bolus wasted 2.1 ml 2mg/ml) Versed I.V. 1 mg Hemodynamics Rest BSA: 2.1 (m2) HGB: 13.9 (g/dl) O2 Consumption: Estimated: 243.27 (ml/min) O2 Con sumption indexed: Estimated:115.84 (ml/min/m) Heart Rate: 64 (bpm) Snapshots Pre Cath Intra NCS Post Cath Vital Signs Time Heart Resp SPO2 etCO2 NIBP (mmHg) Rhythm Pain Sedation Rate (ipm) (%) (mmHg) Status Level (bpm) 13:58:08 63 12 100 40.4 145/94(119) NSR 0 (11) 10(A) , No pain 14:02:22 64 17 99 17.9 135/89(106) NSR 0 (11) 10(A) , No pain 14:06:27 64 10 98 32.1 128/90(103) NSR 0 (11) 10(A) , No pain 14:10:35 59 15 96 35.9 118/87(101) NSR 0 (11) 10(A) , No pain 14:14:41 60 17 97 41.1 129/85(107) NSR 0 (11) 10(A) , No pain 14:18:51 61 11 95 0 121/81(90) NSR 0 (11) 10(A) , No pain 14:23:01 67 21 96 25.4 99/73(92) NSR 0 (11) 10(A) , No pain 14:27:54 69 16 95 44.8 120/64(96) NSR 0 (11) 9(A) , No pain 14:32:06 67 12 97 31.3 121/70(89) NSR 0 (11) 9(A) , No pain 14:36:15 64 13 98 46.3 114/75(94) NSR 0 (11) 10(A) , No pain 14:40:19 62 13 97 35.1 126/85(108) NSR 0 (11) 9(A) , No pain 14:44:27 64 13 97 27.6 128/84(105) NSR 0 (11) 9(A) , No pain 14:48:39 66 21 97 33.6 122/76(93) NSR 0 (11) 9(A) , No pain 14:52:49 63 15 98 41.1 111/75(91) NSR 0 (11) 9(A) , No pain 14:56:57 64 14 98 41.1 118/74(92) NSR 0 (11) 9(A) , No pain 15:01:07 66 23 98 42.6 116/70(93) NSR 0 (11) 9(A) , No pain Medications Time Medication Route Dose Verified Delivered Reason Not es Effectiveness by by 13:59:50 0.9% NaCl I.V. 100 Yahir Yahir Per physician ml/hr Tere Carranza RN RN 13:59:58 Oxygen etCO2 2 l/min Yahir Yahir for low 02 sats Nasal Tere Carranza cannula RN RN 14:00:17 Heparin Flush added 2 bags Yahir Yahir used for Bag to Tere Carranza procedure (1000units/500ml field RN RN NS) 14:00:27 Lidocaine 2% added 20ml Yahir Yahir for local to vial Lorigan Lorpatricia anesthetic field RN RN 14:00:38 Radial Cocktail added 1 Yahir Yahir used for (Verapamil to syringe Lorpatricia Carranza procedure 2mg/Nitro field RN RN 400mcg/Hepari 14:18:48 Versed I.V. 2 mg Yahir Yahir for sedation Tere Carranza RN RN 14:19:07 Fentanyl I.V. 100 mcg Yahir Yahir for sedation Tere Carranza RN RN 14:19:49 Versed I.V. 2 mg Yahir Yahir for sedation Tere Carranza RN RN 14:19:56 Fentanyl I.V. 100 mcg Yahir Yahir for sedation Tere Carranza RN RN 14:21:30 Versed I.V. 2 mg Yahir Yahir for sedation Tere Carranza RN RN 14:21:48 Radial Cocktail I.A. 1 Yahir Hayden for (Verapamil syringe Tere Collado MD vasodilation 2mg/Nitro RN 400mcg/Hepari 14:34:09 Heparin Bolus I.V. 4000 Yahir Yahir for units Tere Carranza anticoagulation RN RN 14:35:27 Integrilin I.V. 7.9 ml Yahir Yahir for (Bolus 2mg/ml) Tere Carranza antiplatelet RN RN therapy 14:35:37 Integrilin wasted 2.1ml Yahir Yahir to sharp's (Bolus 2mg/ml) Tere Carranza RN RN 14:38:35 Versed I.V. 1 mg Yahir Yahir for sedation Tere Carranza RN flooring grader Log Time Note 13:25:36 Admit Source: Other 13:26:02 Procedure Status Urgent Heart Cath (IP). 13:26:05 Yahir Carranza RN sent for patient. Start room use. 13:27:08 Time tracking: Regular hours (M-F 7:00 - 5:00) 13:27:13 Plan of Care:Hemodynamics will remain stable., Cardiac rhythm will remain stable., Comfort level will be maintained., Respiratory function will remain adequate., Patient/ family verbilizes understanding of procedure., Procedure tolerated without complication., Recovers from procedure without complications.. 13::49 H&P Date Dictated: 01/19/2019 Within 30 days and on chart.. ::49 Lab Result : Troponin l 0.017 ng/ml ::49 Lab Result : eGFR NONAFRICAN 66 ml/min ::49 Lab Result : CK-MB 0.6 ng/ml :: Lab Result : BUN 8 mg/dl :49 Lab Result : Creatinine 1.2 mg/dl 13::53 Lab results completed and on chart. 13:32:08 Lab Result : Hematocrit 39.6 % 13:32:08 Lab Result : Hemoglobin 13.9 g/dl 13:32:17 Informed consent obtained and on chart 13:35:39 Risk of blood transfusion: .01 13:35:42 Risk of DENIA: 1.2 13:37:18 Arrival Date: 01/19/2019 12:00:00 AM 13:37:39 Insurance Payor : Private health insurance 13:38:01 Patient Height : 74 inches 13:38:07 Patient Weight : 185.39 lbs 13:38:19 Diagnostic Cath Status : Urgent 13:38:28 Indication : Chest pain 13:38:34 Indication : Shortness of breath 13:48:26 Patient received from ED to CCL 1 Alert and oriented. Tansferred to table in Supine position. 13:48:27 Warm blankets applied, and michele hugger turned on for patient comfort. 13:48:28 Correct patient and procedure confirmed by team. 13:48:30 ECG and BP/O2 sat monitors applied to patient. 13:48:34 Pre-procedure instructions explained to patient. 13:48:39 Pre-op teaching completed and patient verbalized understanding. 13:48:44 Family in waiting room. 13:48:48 Patient NPO since Lunch. 13:49:05 Is the patient allergic to Iodine/contrast media? No. 13:49:07 Was the patient premedicated? Yes 13:55:53 Is patient on blood thinner?Yes 13:55:57 ACC The patient was administered the following blood thiners within the last 24 hours: ACCPlavix 13:55:59 Patient diabetic? No. 13:56:02 If diabetic: On Metformin? N/A 13:56:03 ----Pre-sedation anethsthesia assessment.---- 13:56:07 Previous problem with sedation/anesthesia? No ? 13:56:09 Snore? Yes 13:56:11 Sleep apnea? Yes 13:56:12 Deviated septum? No 13:56:14 Opens mouth fully? Yes 13:56:16 Sticks out tongue? Yes 13:56:26 Airway obstruction? No ? 13:56:30 Dentures? Yes IN TIGHT 13:56:36 Modified Herson's test Ulnar < 7 seconds 13:56:39 Patient pain scale 0/10 ?. 13:56:52 IV patent on arrival in right wrist with 0.9% NaCl at [facility]. 13:56:59 Alarms reviewed by RKat N. 13:57:00 Sharps counted by scrub and verified by R.N. 13:57:08 Vital chart was started 13:57:09 Full Disclosure recording started 13:58:28 Baseline sample Acquired. 13:58:33 Rhythm: sinus rhythm 13:58:49 Right Radial & Right Groin area was prepped with chlora-prep and draped in sterile fashion 13:59:50 0.9% NaCl 100 ml/hr I.V. was administered by Yahir Carranza RN; Per physician; Verbal order read back and verified. 13:59:58 Oxygen 2 l/min etCO2 Nasal cannula was administered by Yahir Carranza RN; for low 02 sats; Verbal order read back and verified. 14:00:17 Heparin Flush Bag (1000units/500ml NS) 2 bags added to field was administered by Yahir Carranza RN; used for procedure; Verbal order read back and verified. 14:00:26 Lidocaine 2% 20ml vial added to field was administered by Yahir Carranza RN; for local anesthetic; Verbal order read back and verified. 14:00:38 Radial Cocktail (Verapamil 2mg/Nitro 400mcg/Heparin 1500units) 1 syringe added to field was administered by Yahir Carranza RN; used for procedure; Verbal order read back and verified. 14:02:22 Use device set Radial Dx or PCI 14:02:24 ACIST Syringe (16921) opened to sterile field. 14:02:25 Bag Decanter (2001S) opened to sterile field. 14:02:25 Medline Cath Pack ([id number]) opened to sterile field. 14:02:26 ACIST Hand Control (97629) opened to sterile field. 14:02:27 ACIST Manifold (90186) opened to sterile field. 14:02:28 Tegaderm 4 x 4 (1626W) opened to sterile field. 14:02:30 EMERALD Guide Wire (411-515) opened to sterile field. 14:02:33 SHEATH 6FR RAIN (6080146) opened to sterile field. 14:02:36 MBrace Wrist Support ([id number]) opened to sterile field. 14:15:14 --------ALL STOP TIME OUT------ 14:15:15 Final Timeout: patient, procedure, and site verified with staff and physician. All members of the team are in agreement. 14:15:19 Right Radial & Right Groin site verified by team. 14:15:23 Fire Safety Assessment: A--An alcohol-based skin anteseptic being used preoperatively., C--Open oxygen or nitrous oxide is being used., D--An ESU, laser, or fiber-optic light is being used. 14:15:27 Physical assessment completed. ASA score P 2 - A patient with mild systemic disease as per Hayden Collado MD. 14:15:33 2) 60-89 Mildly reduced kidney function, and other findings (as for stage 1) point to kidney disease. 14:15:37 Maximum allowable contrast dose (3.7 X eGFR X 0.75)183 ml. 14:15:42 Sedation plan: IV Moderate Sedation Medication:Versed, Fentanyl 14:17:53 Procedure started. 14:17:56 Local anesthetic to right radial artery with Lidocaine 2% by Hayden Collado MD.INITIAL ACCESS ONLY 14:18:48 Versed 2 mg I.V. was administered by Yahir Carranza RN; for sedation; Verbal order read back and verified. 14:19:07 Fentanyl 100 mcg I.V. was administered by Yahir Carranza RN; for sedation; Verbal order read back and verified. 14:19:49 Versed 2 mg I.V. was administered by Yahir Carranza RN; for sedation; Verbal order read back and verified. 14:19:56 Fentanyl 100 mcg I.V. was administered by Yahir Carranza RN; for sedation; Verbal order read back and verified. 14:21:05 A 6 Fr Short sheath was inserted into the Right Radial artery 14:21:29 A DIAGNOSTIC [facility] 110cm 5 Fr catheter ([id number]) was advanced over the wire and used for Procedure. 14:21:30 Versed 2 mg I.V. was administered by Yahir Carranza RN; for sedation; Verbal order read back and verified. 14:21:48 Radial Cocktail (Verapamil 2mg/Nitro 400mcg/Heparin 1500units) 1 syringe I.A. was administered by Hayden Collado MD; for vasodilation; Verbal order read back and verified. 14:21:49 LV gram done using HADDAD 14:21:53 Injector settings: Ml/sec: 5, Volume: 15, 14:22:47 EF : 60 % 14:22:58 LCA angiography performed. 14:24:34 RCA angiography performed. 14:24:56 ACCDominant side:Right 14:24:59 Catheter exchanged over wire. 14:25:02 Proceeding to intervention. 14:25:12 INFLATOR Merit BasixCompak (LF7519) opened to sterile field. 14:25:13 [place] Verrata Plus pressure wire (69824T) opened to sterile field. 14:25:14 GUIDE 6FR XBLAD 3.5 catheter ([id number]) opened to sterile field. 14:25:30 6 Fr XBLAD 3.5 guide catheter was inserted over the wire 14:27:25 FFR/IFR wire advanced. 14:27:28 Wire advanced across lesion. 14:30:59 mLAD lesion measured at .77 with IFR 14:33:46 LASER ELCA 0.9 Rx atherectomy catheter (326875) opened to sterile field. 14:34:09 Heparin Bolus 4000 units I.V. was administered by Yahir Carranza RN; for anticoagulation; Verbal order read back and verified. 14:35:27 Integrilin (Bolus 2mg/ml) 7.9 ml I.V. was administered by Yahir Carranza RN; for antiplatelet therapy; Verbal order read back and verified. 14:35:37 Integrilin (Bolus 2mg/ml) 2.1ml wasted was administered by Yahir Carranza RN; to sharp's; Verbal order read back and verified. 14:37:17 Laser catheter removed. 14:37:22 Laser total pulses delivered: 0 14:37:26 Laser total treatment time: 0 minutes 0 seconds 14:38:35 Versed 1 mg I.V. was administered by Yahir Carranza RN; for sedation; Verbal order read back and verified. 14:38:52 Inflate balloon Inflation number: 1 A EUPHORA 3.0 x 20 Balloon ([id number]) was prepped and advanced across the Mid LAD , then inflated to 17 NARCISO for 0:00 (min:sec) . 14:39:38 Inflation number: 2 The EUPHORA 3.0 x 20 Balloon ([id number]) was reinflated across the Mid LAD , to 17 NARCISO for 0:00 (min:sec) . 14:40:30 Balloon removed over the wire. 14:42:13 Place stent Inflation Number: 3 A BERTHA RX 3.5 x 08 stent ([id number]) was prepped and advanced across the Mid LAD . The stent was deployed at 17 NARCISO for 0:00 (min:sec) . 14:42:46 Inflation number: 4 The stent balloon was then re-inflated across the Mid LAD to 17 NARCISO for 0:00 (min:sec) . 14:43:17 Stent catheter was removed intact over wire. 14:43:19 Wire removed. 14:43:21 CHOICE PT Extra Support 182cm wire ([id number]) opened to sterile field. 14:43:59 CHOICE ES 182 wire advanced. 14:44:27 WIRE ADVANCED TO DIAG 14:45:04 UNABLE TO CROSS Wire across lesion. 14:50:10 MINAMO ASAHI WIRE ADVANCED ACROSS DIAG. 14:51:46 Inflate balloon Inflation number: 1 A EUPHORA 2.5 x 10 Balloon ([id number]) was prepped and advanced across the 1st Diag , then inflated to 13 NARCISO for 0:00 (min:sec) . 14:52:15 Balloon removed over the wire. 14:52:16 Guide catheter removed. 14:52:16 Wire removed. 14:52:44 Sheath removed intact; hemostasis achieved with Mechanical Compression to the Right Radial artery. 14:52:48 Procedure ended.(Physican Out) 14:52:54 ZEPHYR REGULAR TR BAND (501147) opened to sterile field. 14:53:13 ACT drawn and resulted at OUT OF RANGE seconds. (normal therapeutic range 180-240 seconds). 14:53:38 Fluoroscopy time 13.30 minutes. 14:53:50 Fluoroscopy dose: 1019 mGy 14:53:50 Flurop Dose total: 1019 14:53:56 Dose Area Product 85364 mGy/cm. 14:54:03 Contrast amount:Isovue 370 136ml. 14:54:10 Maximum allowable dose exceeded? No. 14:54:12 Sharps counted by scrub and verified by R.N. 14:54:17 Votaw band inflated with 10cc of air. 14:54:25 Post Procedure Pulses reassessed and unchanged 14:54:30 Post procedure: right dorsailis pedis pulse 2+ Normal; easily identifiable; not easily obliterated. 14:54:33 Post-procedure physical assessment completed. ASA score P 2 - A patient with mild systemic disease as per Hayden Collado MD. 14:54:38 Post procedure rhythm: unchanged. 14:54:41 Estimated blood loss: 10 ml 14:54:43 Post procedure instruction explained to patient.Patient verbalizes understanding. 14:54:44 Patient needs reinforcement of post procedure teaching. 14:56:08 Procedure type changed to Cath procedure, Diagnostic procedure, LHC, LHC w/Coronaries, FFR/IVUS, FFR Initial, Sedation Charges, Moderate Sedation up to 30 minutes, PCI procedure, PTCA, PTCA Additional, Coronary Atherectomy, Atherectomy w/Stent Coronary Initial, Hemochron ACT Test 14:57:44 Procedure and supply charges have been captured, reviewed, submitted and are correct. 14:57:49 Procedure Complication : No complications 14:57:55 [facility] Findings: MVD- PCI performed (see procedure note) 14:57:57 Operative report dictated upon procedure completion. 14:57:59 See physician's report for complete and final results. 14:58:03 Report given to [facility]. 14:58:10 Patient transfered to [facility] with Bed. 15:01:10 Vital chart was stopped 15:01:13 Full Disclosure recording stopped 15:01:13 Procedure ended. 15:01:30 ACC-PCI Only Patient was given prescriptions, or instructed by Hayden Collado MD to start/continue the following medications upon discharge: Plavix 15:01:32 End room use (Document Last) 15:01:54 End room use (Document Last) 15:02:28 End room use (Document Last) 8:20:12 Laser total treatment time: 1 minutes 10 seconds 8:20:18 Laser total pulses delivered: 2200 Intervention Summary Intervention Notes Time ActionType Lesion and Equipment Used Action# Pressure Duration Attributes 14:38:52 Inflate Mid LAD EUPHORA 3.0 x 1 17 00:00 balloon 20 Balloon ([id number]) 14:39:38 Reinflate Mid LAD EUPHORA 3.0 x 2 17 00:00 balloon 20 Balloon ([id number]) 14:42:13 Place stent Mid LAD BERTHA RX 3.5 x 3 17 00:00 08 stent ([id number]) 14:42:46 Reinflate Mid LAD BERTHA RX 3.5 x 4 17 00:00 stent 08 stent balloon ([id number]) 14:51:46 Inflate 1st Diag EUPHORA 2.5 x 1 13 00:00 balloon 10 Balloon ([id number]) Device Usage Item Name Manufacture Quantity Catalog Number Hospital Part Current Minimal Lot# / Charge Number Stock Stock Serial# Code ACIST Syringe Acist 1 52709 531704 066268 008145 20 (45129) Medical Systems Inc Medline Cath Medline 1 [id number] 716272 07555 222457 5 Pack ([id number]) Bag Decanter Microtek 1 684613 05565 516210 5 () Medical Inc. ACIST Hand Acist 1 00132 938462 219743 828955 5 Control Medical (22812) Systems Inc ACIST Manifold Acist 1 99161 902911 409014 768296 5 (16933) Medical Systems Inc Tegaderm 4 x 4 3M 1 1626W 996970 327342 869934 5 (1626W) EMERALD Guide Cardinal 1 502-455 736351 038219 346107 5 Wire (502-455) Health SHEATH 6FR Cardinal 1 1628635 057227 0467776 349626 5 RAIN (3814766) Health MBrace Wrist Advanced 1 140-0250-00 366487 67030 637065 5 Support Vascular (360687546) Dynamics DIAGNOSTIC Terumo 1 40-1583 559755 271954 687493 5 [facility] 110cm 5 Fr catheter (183510) INFLATOR Merit Merit 1 WL3396 070254 802445 229969 15 BasixComkettering health preble Medical (VY2263) [place] 1 25801J 655849 028179880 369868 5 Verrata Plus pressure wire (25465W) GUIDE 6FR Cardinal 1 [id number] 190363 915850 579785 10 XBLAD 3.5 Health catheter (50008850) LASER ELCA 0.9 Umu 1 110-004 035629 704338 154976 5 Rx atherectomy Healthcare catheter (572155) (869781) EUPHORA 3.0 x Medtronic 1 [id number] 710763 896447 432053 5 [id number] 20 Balloon ([id number]) BERTHA RX 3.5 x Medtronic 1 [id number] 112946 4259580 548272 5 [id number] 08 stent ([id number]) CHOICE PT Peshtigo 1 [id number] 368774 750754 553298 5 Extra Support Scientific 182cm wire ([id number]) EUPHORA 2.5 x Medtronic 1 [id number] 235025 140741 602524 5 [id number] 10 Balloon ([id number]) ZEPHYR REGULAR Cardinal 1 720926 223356 9494323 066171 5 TR [facility] Convene (729396) Signature Audit [place] Stage Time Signature Unsigned Intra-Procedure 01/19/2019 Claudia West 3:01:54 PM RT(R) Intra-Procedure 01/19/2019 Yahir 3:02:28 PM Tere SUTHERLAND Intra-Procedure 01/19/2019 Hayden Collado MD 3:02:44 PM 01/20/2019 8:19:37 AM Intra-Procedure 01/20/2019 Hayden Collado 8:20:50 AM [id number] [place] [address]
--- NOTE | ~2019-01-19 | OP ---
PATIENT NAME: JAELYN BAKER MEDICAL RECORD: [id number] :64 LOCATION:D.M2 D.2120 ADMISSION DATE: SURGEON: SHIRAZ BOLAND MD DATE OF OPERATION: 01/19/2019 DATE OF SERVICE: 01/19/2019 PROCEDURES: 1. Laser atherectomy, PTCA stent LAD. 2. PTCA LAD diagonal. 3. Left heart catheterization. 4. Selective coronary angiography. 5. Left ventriculogram. 6. IFR. INDICATION: Angina and coronary artery disease. PROCEDURE IN DETAIL: After informed consent was obtained and after a detailed description of risks, benefits as well as alternative therapies, the patient elected to proceed with angiogram and angioplasty. The right radial area was prepped and draped in normal sterile fashion. Right radial artery was cannulated via modified Seldinger technique with placement of 6-Omani sheath. All catheters exchanged through this sheath. FINDINGS: Left ventriculogram was performed in standard 30-degree HADDAD view, reveals good cardiac wall motion, ejection fraction estimated at 60%. SELECTIVE CORONARY ANGIOGRAPHY: 1. Left main is with no significant angiographic disease. 2. Left anterior descending has previously placed stents with 70% in-stent restenosis and abnormal IFR was 0.77. 3. The left circumflex has mild irregularities, but no flow-limiting stenosis. 4. Right coronary has mild irregularities, but no flow-limiting stenosis. LASER ATHERECTOMY, PTCA STENT OF THE LAD: The laser atherectomy catheter was 0.9 mm catheter, multiple passes were made at 80/40. We then stented this with a 3.5 x 8 mm [place] stent. This caused plaque shift into the diagonal. Diagonal was addressed with a 2.5 balloon. Result was 0% residual throughout. OVERALL IMPRESSION: Successful percutaneous transluminal coronary angioplasty stent, laser atherectomy of the left anterior descending going from 70% initial stenosis with abnormal IFR to 0% residual stenosis. 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
--- NOTE | ~2019-01-19 | DS ---
PATIENT:JAELYN BAKER :64 MEDICAL RECORD: [id number] DISCHARGE SUMMARY ADMISSION DATE: 01/19/19 DISCHARGE DATE: 01/20/19 DATE OF DISCHARGE: 01/20/2019 DIAGNOSES: 1. Angina. 2. Coronary artery disease. 3. Percutaneous transluminal coronary angioplasty stent, laser atherectomy, left anterior descending this admission. HOSPITAL COURSE: Mr. Baker presents with anginal symptomatology, underwent cardiac catheterization revealing in-stent restenosis of the LAD, underwent successful laser atherectomy, PTCA stent of the LAD, was discharged home with no change in the medications as he is already on aspirin and Plavix. He will follow up with [facility] in 1 month. 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
--- NOTE | ~2019-01-19 | EC ---
PATIENT:JAELYN BAKER DATE OF SERVICE: 01/19/19 SEX: M MEDICAL RECORD: [id number] DATE OF : 64 LOCATION:D.M2 D.212 AGE OF PATIENT: 59 ADMISSION DATE: 01/19/19 REFERRING PHYSICIAN: INTERPRETING PHYSICIAN: SHIRAZ COLLADO MD ECHOCARDIOGRAM REPORT ECHO CHARGES 4 ECHO COMPLETE Date: 01/19/19 CLINICAL DIAGNOSIS: CP ECHOCARDIOGRAPHIC MEASUREMENTS (adult normal given) AC root (d.<3.7cm) 3.8 cm LV Septum d (<1.2 cm> 1.5 cm Valve Excursion 1.9 cm LV Septum (systole) 1.9 cm Left Atria (s.<4.0cm> 2.3 cm LVPW d(<1.2cm) 1.5 cm RV (d.<2.3cm) 3.6 cm LVPW (sytole) 2.1 cm LV diastole(<5.6CM) 4.7 cm MV E-F(>70mm/sec) cm LV systole 2.9 cm LVOT Diameter 2.2 cm MV exc.(>10mm) cm Est.ejection fraction (50-75%) % DOPPLER: LVIT cm/sec A 52.0 cm/sec E 38.0 cm/sec LA cm/sec RVSP 25.0 mmHg LVOT 97.0 cm/sec AOP1/2T m/s Asc. Ao 122 cm/sec RVOT 59.0 cm/sec RA cm/sec PA 82.0 cm/sec AV Gradient Peak 6.0 mmHg AV Mean 3.6 mmHg AV Area 3.1 cm MV Gradient Peak 1.8 mmHg MV Mean 0.92 mmHg MV Area cm COMMENTS: Tub Mender: 1 JONY DONOE Insurance Processor: 1 Dr. Collado TAPE# PACS Pericardial Effusion N DATE OF SERVICE: FINDINGS: 1. Left ventricular chamber size is within normal limits. Left ventricular systolic function is normal. Overall ejection fraction estimated at 55%. 2. Left atrium, right atrium, and right ventricle chamber sizes are within normal limits. 3. Valvular structures have normal structure and motion. 4. Doppler interrogation reveals no significant valvular insufficiency or stenosis and pulmonary systolic pressure is normal estimated at 25 mmHg. ECHOCARDIOGRAM REPORT [id number] JAELYN BAKER 5. No evidence of pericardial effusion or left ventricular thrombus. TRANSINT:[id number] Voice Confirmation ID: [id number] DOCUMENT ID: [id number] SHIRAZ COLLADO MD CC: [id number] DICTATION DATE: 01/19/19 1333 DEAN OF BOYS: 01/19/19 1356 [address] [place] [id number] [place] [id number]
[~2019-01-19 10:54] MED LIST changes: -BAYER CHEWABLE81 MG PO; -CRESTOR5 MG PO; -FLOMAX0.4 MG PO; -K-TAB10 MEQ PO; -METOPROLOL TART50 MG PO
[2019-01-19 11:31] LABS: APTT 27.2 SECONDS (22.8-39.4); CALC OSMOLALITY 276 mosm/kg (275-300); CALCIUM 9.2 mg/dL (8.5-10.1); CARBON DIOXIDE 32.4 mmol/L (21.0-32.0); CHLORIDE - SERUM 103 mmol/L (98-107); CREATININE - SERUM 1.2 mg/dL (0.6-1.3); GLUCOSE 121 mg/dL (74-106); INR 1.04 (0.85-1.17); POTASSIUM - SERUM 3.4 mmol/L (3.5-5.1); PROTIME 13.1 SECONDS (11.6-15.0); SODIUM 139 mmol/L (136-145); UREA NITROGEN 8 mg/dL (7-18); eGFR NON AFRICAN AMERICAN 66 mL/min (90-120)
[2019-01-19 11:47] LABS: ALBUMIN 3.9 g/dL (3.4-5.0); ALKALINE PHOSPHATASE 75 U/L (46-116); ALT (SGPT) 26 U/L (10-68); BILIRUBIN - TOTAL 0.42 mg/dL (0.2-1.3); CKMB 0.6 U/L (0.0-3.6); CREATINE KINASE 51 UL (21-232); PROTEIN - SERUM 7.5 g/dL (6.4-8.2)
[2019-01-19 11:52] LABS: TROPONIN-I < 0.017 ng/mL (0.000-0.060)
[2019-01-19 12:02] LABS: BASOPHILS 0.3 % (0-2); EOSINOPHILS 3.2 % (0-7); HEMATOCRIT 39.6 % (42.0-54.0); HEMOGLOBIN 13.9 g/dL (13.5-17.5); IMMATURE GRANULOCYTES 0.3 % (0-5); MCH 29.3 pg (26.0-34.0); MCHC 35.1 g/dL (31.0-37.0); MCV 83.4 fL (80.0-100.0); MEAN PLATELET VOLUME 9.2 fL (7.4-10.4); MONOCYTES 7.9 % (2-11); NEUTROPHILS 59.3 % (40-80); PLATELET COUNT 209 10x3/uL (130-400); RBC 4.75 10x6/uL (4.20-6.10); RDW 13.3 % (11.5-14.5); WBC 6.6 10x3/uL (4.8-10.8)
[2019-01-19] MEDS ORDERED: FLOMAX0.4 MG PO (13:25)
[2019-01-19] MEDS ORDERED: K-TAB10 MEQ PO (13:25)
[2019-01-19] MEDS ORDERED: CRESTOR5 MG PO (13:26)
[2019-01-19 13:30] VITALS: BP 141/83; Ht 188 cm; Wt 84.1 kg
--- NOTE | 2019-01-19 13:30 | NUR ---
NEW PATIENT ADMIT FROM ER. PATIENT ARRIVED VIA WC ACCOMPANIED BY HOSPITAL STAFF AND . PATIENT TRANSFERRED TO HOSPITAL BED. PATIENT IS AWAKE, ALERT AND ORIENTED X 4. VSS. ASSESSMENT COMPLETED. PATIENT COMPLAINS OF CHEST PRESSURE AT A 6. LEFT ROOM TO CHECK FOR PAIN RX ORDER BUT MET BY RESEARCH ENVIRONMENTAL SCIENTIST STAFF AT PATIENT DOOR. PATIENT TO HAVE HEART CATH IMMEDIATELY. CONSENT OBTAINED . PATIENT TO RESEARCH ENVIRONMENTAL SCIENTIST VIA HOSPITAL BED ACCOMPANIED BY RESEARCH ENVIRONMENTAL SCIENTIST PERSONNEL.
--- NOTE | 2019-01-19 14:59 | HP ---
PATIENT: JAELYN BAKER MEDICAL RECORD: [id number] ACCOUNT: [id number] LOCATION:[address] : 64 ADMISSION DATE: 01/19/19 PCP: ANATOLIY NORRIS MD HISTORY AND PHYSICAL EXAMINATION DIAGNOSES: 1. Unstable angina. 2. Shortness of breath, dyspnea on exertion. 3. Coronary artery disease. 4. Previous multivessel percutaneous transluminal coronary angioplasty stent. 5. Hypertension. 6. Tachycardia. 7. Hyperlipidemia. HISTORY OF PRESENT ILLNESS: Mr. Baker presents with 2 days of profound shortness of breath, which is the symptomatology that he has had in the past when he has had hemodynamically significant coronary artery disease. As well today, he had chest tightness. He had the episode of chest tightness at rest. When he came in, he was quite tachycardic. He has not been on a beta sara in the past. We have given him a beta sara. His tachycardia is resolving. He is still having chest tightness as well as shortness of breath. He has no acute changes on his EKG. He is on amlodipine, Imdur, and he has been taking multiple sublingual nitro over the last 2 days for his shortness of breath as well. The shortness of breath does improve with the nitro, however, returns. PHYSICAL EXAMINATION: CONSTITUTIONAL/GENERAL APPEARANCE: Well nourished, well developed, appears stated age. EYES: Lids and conjunctivae noninjected. No discharge. No pallor. ENT: Lips within normal limit. No cyanosis. No pallor. NECK: Carotid arteries, bilateral normal upstroke. No bruits. No thrills. No jugular venous pressure or distention. CERVICAL LYMPH NODES: Nontender. Nonenlarged. THYROID: Not enlarged. No nodules. CARDIOVASCULAR: Precordial exam, nondisplaced. No heaves or pericardial thrills. Rate and rhythm, regular. Heart sounds, normal S1, normal S2. No S3, no gallop, no rub. Systolic murmur, not heard. Diastolic murmur, not heard. RESPIRATORY: Respiratory effort, unlabored. Normal curvature. No thoracic deformity. No chest wall tenderness. Percussion, resonant. Auscultation, clear. No wheezes, no rales, no rhonchi. ABDOMEN: Soft, nondistended, nontender. No abdominal pain, no vomiting and normal appetite. MUSCULOSKELETAL: No joint tenderness, normal gait, normal tone. SKIN: Warm and dry. OVERALL IMPRESSION: Unstable angina. At this time, we will optimize his medications with the addition of a beta sara. If he continues to have the symptomatology this afternoon despite the heart rate, blood pressure, optimizing would consider repeat angiography. TRANSINT:[id number] Voice Confirmation ID: [id number] DOCUMENT ID: [id number] HISTORY AND PHYSICAL [id number] JAELYN BAKER JEFFREY MD at 1459 CC: [id number] DICTATION DATE: 01/19/19 1208 IMMIGRATION MANAGER: 01/19/19 1351 [facility] [address] [place] [address]
[2019-01-19 16:10] VITALS: BP 113/66
--- NOTE | 2019-01-19 19:04 | NUR ---
PATIENT COMPLAINS OF CHEST PAIN PRESSURE OF A 6. CALLED DR BOLAND AND RECEIVED NEW ORDER FOR NORCO 10 .
--- NOTE | 2019-01-19 19:30 | NUR ---
REMOVED AIR FROM Z BAND. NO BLEEDING, SWELLINGS. THERE APPEARS TO BE SOME BRUISING. NO C/O PAIN. CALL LIGHT WITHIN REACH.
--- NOTE | 2019-01-19 19:45 | NUR ---
RECEIVED BEDSIDE REPORT. PATIENT IS ALERT AND ORIENTED. RESTING COMFORTABLY IN BED. RESPIRATIONS ARE EVEN AND UNLABORED. NO S/S OF DISTRESS. NO C/O PAIN. CALL LIGHT WITHIN REACH. WILL CPOC.
[2019-01-19 20:00] VITALS: BP 151/88
--- NOTE | 2019-01-19 20:00 | NUR ---
RELEASED AIR FROM Z BAND. NO SIGNS OF BLEEDING, SWELLING. BRUISING UNDER Z BAND. NO C/O PAIN. CALL LIGHT WITHIN REACH.
--- NOTE | 2019-01-19 21:00 | NUR ---
RELEASED REMAINDER OF AIR. NO SIGNS OF BLEEDING, SWELLING. BRUISE REMAINS THE SAME. NO C/O OF PAIN. INSERTION SITE CLEANED, BAND AID PLACED. DEFLATED Z BAND PLACE ON WRIST A REMINDER NOT USE.
[2019-01-20] VITALS: BP 143/93
[2019-01-20 04:00] VITALS: BP 144/82
[2019-01-20 06:06] LABS: BASOPHILS 0.5 % (0-2); EOSINOPHILS 6.2 % (0-7); HEMATOCRIT 38.5 % (42.0-54.0); HEMOGLOBIN 13.4 g/dL (13.5-17.5); IMMATURE GRANULOCYTES 0.2 % (0-5); LYMPHOCYTES 16.4 % (15-50); MCHC 34.8 g/dL (31.0-37.0); MCV 83.3 fL (80.0-100.0); MEAN PLATELET VOLUME 9.3 fL (7.4-10.4); MONOCYTES 7.7 % (2-11); RBC 4.62 10x6/uL (4.20-6.10); RDW 13.5 % (11.5-14.5); WBC 6.3 10x3/uL (4.8-10.8)
[2019-01-20 06:19] LABS: ALBUMIN 3.3 g/dL (3.4-5.0); ANION GAP 9.5 mmol/L (8-16); BILIRUBIN - TOTAL 0.47 mg/dL (0.2-1.3); CALCIUM 8.7 mg/dL (8.5-10.1); CARBON DIOXIDE 30.2 mmol/L (21.0-32.0); CREATININE - SERUM 1.2 mg/dL (0.6-1.3); POTASSIUM - SERUM 3.7 mmol/L (3.5-5.1); PROTEIN - SERUM 6.7 g/dL (6.4-8.2)
[2019-01-20 06:23] LABS: PLATELET COUNT 164 10x3/uL (130-400)
[2019-01-20] MEDS ORDERED: METOPROLOL TART50 MG PO (09:14)
[2019-01-20] MEDS ORDERED: PLAVIX75 MG PO (09:15)
[2019-01-20] MEDS ORDERED: BAYER CHEWABLE81 MG PO (09:36)
--- NOTE | 2019-01-20 10:41 | NUR ---
REVIEWED DISCHARGE INSTRUCTIONS WITH PT STATES UNDERSTANDING COPY GIVEN DCD SALINE LOCK TO RT WRIST WITH IV CATHETER INTACT SITE FREE OF REDESS OR EDEMA PT DISCHARGED HOME LEFT UNIT VIA W/C IN STABLE CONDITION WITH ALL PERSONAL BELONGINGS
== END 2019-01-20 10:41 | disposition home or self-care (01) ==
LOC: D.ER 10:54 → D.M2 10:54 → D.OPS 10:54 → EDSTATUS 12:09 → D.M2 12:10 → D.OPS 01-20 10:41
PROVIDERS: Family Medicine; ATTEND Internal Medicine Interventional Cardiology
DX: I25.119 Atherosclerotic heart disease of native coronary artery with unspecified angina pectoris (principal); I10 Essential (primary) hypertension

== ENCOUNTER → 2019-01-31 16:37 | Outpatient (CLI) | payer BC ==
[2019-01-19 13:30] VITALS: BMI 23.8
[~2019-01-31 16:37] MED LIST changes: +BACLOFEN20 M1 PO; +BAYER CHEWABLE81 MG PO; +CRESTOR5 MG PO; +FLOMAX0.4 MG PO; +K-TAB10 MEQ PO; +METOPROLOL TART50 MG PO; +ULTRAM50 MG PO
[2019-01-31 17:28] LABS: LDL-HDL RATIO 1.4 ratio (1.5-3.5)
== END | disposition home or self-care (01) ==
LOC: D.LABREF 16:37
PROVIDERS: ATTEND Internal Medicine Interventional Cardiology
DX: I25.10 Atherosclerotic heart disease of native coronary artery without angina pectoris (principal)

== ENCOUNTER 2019-02-05 19:05 | Emergency (ER) | payer BC ==
[~2019-02-05] VITALS: Ht 188 cm; Wt 84.1 kg
[~2019-02-05 19:05] MED LIST changes: -BACLOFEN20 M1 PO; -ULTRAM50 MG PO
[2019-02-05 19:19] VITALS: Ht 188 cm; Wt 84.1 kg
[2019-02-05] MEDS ORDERED: BACLOFEN20 M1 PO (20:10)
[2019-02-05] MEDS ORDERED: ULTRAM50 MG PO (20:10)
[2019-02-05 20:59] VITALS: BP 132/84
== END 2019-02-05 20:59 | disposition home or self-care (01) ==
LOC: D.ER 19:05
DX: R52 Pain, unspecified (principal); R51 Headache; W18.09XA Striking against other object with subsequent fall, initial encounter; I25.10 Atherosclerotic heart disease of native coronary artery without angina pectoris; I10 Essential (primary) hypertension; E78.5 Hyperlipidemia, unspecified

== ENCOUNTER 2019-03-04 13:44 | Emergency (ER) | payer BC ==
[~2019-03-04 13:44] MED LIST changes: +BACLOFEN20 M1 PO; +ULTRAM50 MG PO
[2019-03-04 13:54] VITALS: BP 176/93; Ht 188 cm
[2019-03-04] MEDS ORDERED: TYLENOL W/CODEI1 TAB PO (15:21)
== END 2019-03-04 15:26 | disposition home or self-care (01) ==
LOC: D.ER 13:44
DX: S20.211A Contusion of right front wall of thorax, initial encounter (principal); I25.10 Atherosclerotic heart disease of native coronary artery without angina pectoris; I10 Essential (primary) hypertension; E78.5 Hyperlipidemia, unspecified

== ENCOUNTER 2019-03-07 08:39 | Observation (INO) | payer BC ==
[~2019-03-07] VITALS: Ht 188 cm; Wt 86.4 kg
--- NOTE | ~2019-03-07 | DS ---
PATIENT:JAELYN BAKER :64 MEDICAL RECORD: [id number] DISCHARGE SUMMARY ADMISSION DATE: 03/07/19 DISCHARGE DATE: DATE OF DISCHARGE: 03/08/2019 DIAGNOSES: 1. Angina. 2. Hypertension. 3. Hyperlipidemia. 4. Coronary artery disease. 5. Previous multivessel percutaneous transluminal coronary angioplasty stent. HOSPITAL COURSE: Mr. Baker presents with anginal symptomatology, his blood pressure was out of control. We discontinued his amlodipine and put him on Procardia. He had no further anginal symptomatology, lowering the blood pressure. We will plan for followup as previously scheduled. No other changes in medication. TRANSINT:[id number] Voice Confirmation ID: [id number] DOCUMENT ID: [id number] SHIRAZ BOLAND MD CC: [id number] DICTATION DATE: 03/08/19722 OFFICE MACHINE SERVICE SUPERVISOR: 03/08/19 0854 ADM IN [facility] [address] [place] [place] [id number]
[~2019-03-07 08:39] MED LIST changes: +TYLENOL W/CODEI1 TAB PO
[2019-03-07 09:07] LABS: BASOPHILS 0.5 % (0-2); EOSINOPHILS 2.5 % (0-7); HEMATOCRIT 36.3 % (42.0-54.0); HEMOGLOBIN 12.5 g/dL (13.5-17.5); IMMATURE GRANULOCYTES 0.2 % (0-5); LYMPHOCYTES 23.6 % (15-50); MCH 28.5 pg (26.0-34.0); MCHC 34.4 g/dL (31.0-37.0); MCV 82.9 fL (80.0-100.0); MEAN PLATELET VOLUME 9.1 fL (7.4-10.4); MONOCYTES 6.3 % (2-11); NEUTROPHILS 66.9 % (40-80); RBC 4.38 10x6/uL (4.20-6.10); RDW 12.7 % (11.5-14.5)
[2019-03-07 09:11] LABS: CALC OSMOLALITY 282 mosm/kg (275-300); CALCIUM 8.1 mg/dL (8.5-10.1); CARBON DIOXIDE 30.3 mmol/L (21.0-32.0); CHLORIDE - SERUM 104 mmol/L (98-107); CREATININE - SERUM 1.3 mg/dL (0.6-1.3); GLUCOSE 156 mg/dL (74-106); POTASSIUM - SERUM 3.3 mmol/L (3.5-5.1); SODIUM 140 mmol/L (136-145); UREA NITROGEN 14 mg/dL (7-18); eGFR NON AFRICAN AMERICAN 60 mL/min (90-120)
[2019-03-07 09:12] LABS: APTT 27.3 SECONDS (22.8-39.4); INR 1.05 (0.85-1.17); PROTIME 13.6 SECONDS (11.6-15.0)
[2019-03-07 09:16] LABS: PLATELET COUNT 230 10x3/uL (130-400)
[2019-03-07 09:28] LABS: ALBUMIN 3.9 g/dL (3.4-5.0); ALKALINE PHOSPHATASE 71 U/L (46-116); ALT (SGPT) 23 U/L (10-68); CKMB 1.1 U/L (0.0-3.6); CREATINE KINASE 65 UL (21-232); MAGNESIUM - SERUM 1.7 mg/dL (1.8-2.4); PROTEIN - SERUM 7.1 g/dL (6.4-8.2)
[2019-03-07 09:31] LABS: TROPONIN-I < 0.017 ng/mL (0.000-0.060)
[2019-03-07 10:00] VITALS: BP 152/80
--- NOTE | 2019-03-07 11:20 | NUR ---
RECIVED FROM ER TO ROOM 2120. PER WC. ADMIT ASSESSMENT PER RN
[2019-03-07 11:42] VITALS: BP 142/80; BMI 24.4
[2019-03-07 13:04] VITALS: BP 142/80
[2019-03-07 16:26] VITALS: BP 156/86
[2019-03-07 17:02] VITALS: Ht 188 cm; Wt 86.4 kg
--- NOTE | 2019-03-07 19:35 | NUR ---
RECEIVED BEDSIDE REPORT. PATIENT IS ALERT AND ORIENTED, RESTING COMFORTABLY IN BED. RESPIRATIONS ARE EVEN AND UNLABORED. NO S/S OF DISTRESS. NO C/O PAIN. CALL LIGHT WITHIN REACH. WILL CPOC.
[2019-03-07 20:00] VITALS: BP 151/79
[2019-03-08] VITALS: BP 137/86
--- NOTE | 2019-03-08 01:33 | NUR ---
PATIENT RESTING COMFORTABLY IN BED. RESPIRATIONS ARE EVEN AND UNLABORED. NO S/S OF DISTRESS. NO C/O PAIN. CALL IGHT WITHIN REACH. WILL CPOC.
[2019-03-08 04:00] VITALS: BP 143/82
--- NOTE | 2019-03-08 04:17 | NUR ---
PATIENT RESTING COMFORTABLY IN BED. RESPIRATIONS ARE EVEN AND UNLABORED. NO S/S OF DISTRESS. NO C/O PAIN. CALL LIGHT WITHIN REACH. WILL CPOC.
[2019-03-08 05:45] LABS: BASOPHILS 0.5 % (0-2); EOSINOPHILS 5.6 % (0-7); HEMATOCRIT 36.8 % (42.0-54.0); HEMOGLOBIN 12.7 g/dL (13.5-17.5); IMMATURE GRANULOCYTES 0.3 % (0-5); LYMPHOCYTES 33.8 % (15-50); MCH 28.9 pg (26.0-34.0); MCHC 34.5 g/dL (31.0-37.0); MCV 83.8 fL (80.0-100.0); MEAN PLATELET VOLUME 9.5 fL (7.4-10.4); MONOCYTES 9.6 % (2-11); NEUTROPHILS 50.2 % (40-80); PLATELET COUNT 245 10x3/uL (130-400); RBC 4.39 10x6/uL (4.20-6.10); RDW 12.9 % (11.5-14.5); WBC 5.9 10x3/uL (4.8-10.8)
[2019-03-08 06:03] LABS: ANION GAP 8.3 mmol/L (8-16); CALCIUM 8.1 mg/dL (8.5-10.1); CARBON DIOXIDE 32.3 mmol/L (21.0-32.0); CREATININE - SERUM 1.2 mg/dL (0.6-1.3); POTASSIUM - SERUM 3.6 mmol/L (3.5-5.1)
--- NOTE | 2019-03-08 07:10 | NUR ---
ASSESSMENT DONE. DENIES NEEDS
--- NOTE | 2019-03-08 07:25 | HP ---
PATIENT: JAELYN BAKER MEDICAL RECORD: [id number] ACCOUNT: [id number] LOCATION:[address] : 64 ADMISSION DATE: 03/07/19 PCP: ANATOLIY NORRIS MD HISTORY AND PHYSICAL EXAMINATION DIAGNOSES: 1. Angina. 2. Coronary artery disease. 3. Previous multivessel stenting. 4. Hypertension. 5. Hyperlipidemia. HISTORY OF PRESENT ILLNESS: Mr. Baker presents with chest discomfort that has been going on for 4 days. It is like that of his previous angina. It is a dull aching pressure sensation across the anterior chest, like a weight is on his chest. His EKG, however, is overall with no changes. Troponin is normal. His blood pressure has been significantly elevated with systolic blood pressures in the 160-190 range. He is on multiple agents for blood pressure. PHYSICAL EXAMINATION: CONSTITUTIONAL/GENERAL APPEARANCE: Well nourished, well developed, appears stated age. EYES: Lids and conjunctivae noninjected. No discharge. No pallor. ENT: Lips within normal limit. No cyanosis. No pallor. NECK: Carotid arteries, bilateral normal upstroke. No bruits. No thrills. No jugular venous pressure or distention. CERVICAL LYMPH NODES: Nontender. Nonenlarged. THYROID: Not enlarged. No nodules. CARDIOVASCULAR: Precordial exam, nondisplaced. No heaves or pericardial thrills. Rate and rhythm, regular. Heart sounds, normal S1, normal S2. No S3, no gallop, no rub. Systolic murmur, not heard. Diastolic murmur, not heard. RESPIRATORY: Respiratory effort, unlabored. Normal curvature. No thoracic deformity. No chest wall tenderness. Percussion, resonant. Auscultation, clear. No wheezes, no rales, no rhonchi. ABDOMEN: Soft, nondistended, nontender. No abdominal pain, no vomiting and normal appetite. MUSCULOSKELETAL: No joint tenderness, normal gait, normal tone. SKIN: Warm and dry. OVERALL IMPRESSION: Angina, associated with out of control hypertension. At this time, we will discontinue his amlodipine and start him on Procardia-XL 60. Can add Cardura, will continue the losartan and metoprolol and hopefully avoid repeat cardiac catheterization. TRANSINT:[id number] Voice Confirmation ID: [id number] DOCUMENT ID: [id number] HISTORY AND PHYSICAL [id number] JAELYN BAKER JEFFREY MD at 0725 CC: [id number] DICTATION DATE: 03/07/19 170 RADIOGRAPHIC TECHNOLOGIST: 03/07/19 1828 ADM IN [place] [id number] [place] [id number]
--- NOTE | 2019-03-08 09:06 | NUR ---
UPON ADMIT, VAMSI HAS NOT HAD A FLU SHOT. WHEN QUESTIONED FOR D/C, HE REFUSES.
[2019-03-08] MEDS ORDERED: PROCARDIA XL60 MG (09:11)
[2019-03-08 09:18] VITALS: BP 144/76
--- NOTE | 2019-03-08 09:25 | NUR ---
DC GIVEN TO PT
--- NOTE | 2019-03-08 09:46 | NUR ---
I have reviewed this patient and I concur with the Shift Assessment completed by the Licensed Practical Nurse today this shift.
--- NOTE | 2019-03-08 09:53 | NUR ---
DC HOME PER PERSONAL CAR
--- NOTE | 2019-03-08 12:04 | MORECARE ---
CASE MANAGEMENT DISCHARGE SUMMARY PATIENT: JAELYN BAKER UNIT: [id number] ADM DATE: 03/07/19 AGE: 59 : 64 SEX: M ROOM/BED: D.2120 AUTHOR: ALEXSANDRA BERNAL PHYSICIAN: REFERRING PHYSICIAN: SHIRAZ BOLAND MD DATE OF SERVICE: 03/08/19 Discharge Plan Patient Name[facility]ELY[facility]AK[facility] [facility] 1960 Planned Disposition: Home Anticipated Discharge Date: 03/08/19 Discharge Date: 03/08/2019 Expected LOS: 1 Initial Reviewer: [email or web address] Initial Review Date: 03/08/2019 Generated: 03/08/19 1:04 pm Patient Name: JAELYN BAKER Page [phone] at 1204 All edits/amendments must be made on the electronic document DICTATION DATE: 03/08/19 1203 TIRE DESIGN ENGINEER: LOLIS 03/08/19 1203 RPT#: [id number] DC DATE:03/08/19 STATUS: DIS IN [facility] [address] [place] [address] END OF REPORT
== END 2019-03-08 09:53 | disposition home or self-care (01) ==
LOC: D.ER 08:39 → D.M2 09:53 → OBSVTIME 10:06 → D.M2 03-08 09:53
PROVIDERS: Family Medicine; ADMIT Internal Medicine Interventional Cardiology; ATTEND Internal Medicine Interventional Cardiology
DX: I25.119 Atherosclerotic heart disease of native coronary artery with unspecified angina pectoris (principal); I10 Essential (primary) hypertension; E78.5 Hyperlipidemia, unspecified; Z95.5 Presence of coronary angioplasty implant and graft

== ENCOUNTER 2019-08-16 17:02 | Observation (INO) | payer BC ==
[~2019-08-16] VITALS: Ht 185.4 cm; Wt 86.2 kg
[2019-08-16] VITALS (11 sets, daily range): BP systolic 128–191; BP diastolic 65–109; Ht 185.4 cm; Wt 86.2 kg
--- NOTE | ~2019-08-16 | HEMODYNAMI ---
PATIENT:JAELYN BAKER MEDICAL RECORD: [id number] : 64 LOCATION:[facility] D.2118 ADMISSION DATE: 08/16/19 Generatedon:08/17/201915:40 Patient name: JAELYN BAKER Patient #: [id number] SSN: [id number] : 1960 Date of study: 08/17/2019 Page: Of Hemodynamic Procedure Report Patient Data Patient Demographics Procedure consent was obtained First Name: JAELYN Gender: Male Last Name: OLIVIA : 1960 [facility] Initial: HAL Age: 59 year(s) Patient #: [id number] Race: SSN: [id number] Additional ID: [id number] Contact details [address]: [address] [place] [address] COURT State: [place] City: [place] Zip code: [address] Past Medical History History of disease Date Diagnosis Comments CAD Allergies Allergen Reaction Date Comments Reported Other allergy 10/15/2017 Benadryl Other allergy 11/04/2017 Benadryl Other allergy 09/12/2018 DIPHENHYDRAMINE Other allergy 08/17/2019 BENADRYL Admission Admission Data Admission Date: 08/16/2019 Admission Time: 18:38 Arrival Date: 08/17/2019 Arrival Time: 0:00 Room #: D.2118 Height (in.): 72.83 BSA: 2.1 (m2) Height (cm.): 185 BMI: 25.13 (kg/m2) Weight (lbs.): 189.6 Weight (kg.): 86 Lab Results Lab Result Date: 08/17/2019 Lab Result Time: 0:00 Biochemistry Name Units Result Min Max BUN mg/dl 13 --(--*-)-- 7 18 Creatinine mg/dl 1.5 --(----)-* 0.6 1.3 eGFR ml/min 61.28202 *-(----)-- 90 120 AM CBC Name Units Result Min Max Hematocrit % 34.5 *-(----)-- 42 54 Hemoglobin g/dl 11.9 *-(----)-- 13.5 17.5 Procedure Procedure Types Cath Procedure Diagnostic Procedure [facility] w/Coronaries Sedation Charges Moderate Sedation up to 15 minutes PCI Procedure Coronary Stent Coronary Stent Initial Hemochron ACT Test Procedure Description Procedure Date Procedure Date: 08/17/2019 Procedure Start Time: 15:19 Procedure End Time: 15:38 Procedure Staff Name Function Ashu Kurtz MD Performing Physician Aimee Peacock RT Monitor Dajia Franklin RN Nurse Janet Shah RT Woven Label Designer Ana Sexton RT Scrub Procedure Data Cath Procedure Fluoroscopy Diagnostic fluoroscopy Total fluoroscopy Time: 4.1 time: 4.1 min min Diagnostic fluoroscopy Total fluoroscopy dose: 563 dose: 563 mGy mGy Contrast Material Contrast Material Type Amount (ml) Isovue 300 76 Entry Location Entry Primary Successful Side Size Upsize Upsize Entry Closure Mehta ccessful Closure Location (Fr) 1 (Fr) 2 (Fr) Remarks Device Remarks Radial Right 6 Fr Mechanical artery Short Compression Estimated blood loss: 10 ml Diagnostic catheters Device Type Used For End Catheter Placement DIAGNOSTIC Conifer 110cm 5 Procedure Fr catheter (030323) Procedure Complications No complications Procedure Medications Medication Administration Route Dosage 0.9% NaCl I.V. 100 ml/hr Oxygen etCO2 Nasal cannula 2 l/min Lidocaine 2% added to field 20 Heparin Flush Bag added to field 2 bags (1000units/500ml NS) Radial Cocktail added to field 1 syringe (Verapamil 2mg/Nitro 400mcg/Heparin 1500units) Plavix P.O. 75 mg Versed I.V. 2 mg Fentanyl I.V. 50 mcg Heparin Bolus I.V. 5000 units Hemodynamics Rest BSA: 2.1 (m2) HGB: 11.9 (g/dl) O2 Consumption: Estimated: 254.29 (ml/min) O2 Con sumption indexed: Estimated:121.09 (ml/min/m) Heart Rate: 78 (bpm) Pressure Samples Time Site Value (mmHg) Purpose Heart Use Rate(bpm) 15:23 LV 183/10,19 Snapshot 81 Gradients Valve Time Site Site Mean SEP/DFP Peak To Heart Use 1 2 (mmHg) (sec/min) Peak Rate (mmHg) (bpm) Aortic 15:23 LV AO 79 Snapshots Pre Cath Intra NCS Post Cath Vital Signs Time Heart Resp SPO2 etCO2 NIBP (mmHg) Rhythm Pain Sedation Rate (ipm) (%) (mmHg) Status Level (bpm) 15:05:51 82 18 98 31 172/104(136) NSR 0 (11) 10(A) , No pain 15:10:11 83 11 98 28.4 168/105(146) NSR 0 (11) 10(A) , No pain 15:14:29 82 12 98 29.1 174/105(143) NSR 0 (11) 10(A) , No pain 15:18:53 81 10 96 37.4 188/104(148) NSR 0 (11) 10(A) , No pain 15:23:09 86 16 96 35.9 163/93(122) NSR 0 (11) 10(A) , No pain 15:27:21 90 15 97 41.8 154/96(122) NSR 0 (11) 10(A) , No pain 15:32:14 78 15 96 35.1 151/93(112) NSR 0 (11) 10(A) , No pain 15:36:30 86 14 99 41.1 158/91(131) NSR 0 (11) 10(A) , No pain Medications Time Medication Route Dose Verified Delivered Reason Not es Effectiveness by by 15:14:22 0.9% NaCl I.V. 100 Ashu Daija used for ml/hr Jerardo Rigoberto procedure MD [place] 15:14:30 Oxygen etCO2 2 l/min Ashu Diaza used for Nasal Jerardo Rigoberto procedure cannula MD [place] 15:14:35 Lidocaine 2% added 20ml Ashu Wakefield for local to vial Jerardo Jerardo anesthetic field MD RAYA 15:14:39 Heparin Flush added 2 bags Ashu Wakefield used for Bag to Jerardo Jerardo procedure (1000units/500ml field MD RAYA NS) 15:14:46 Radial Cocktail added 1 Ashu Wakefield used for (Verapamil to syringe Jerardo Jerardo procedure 2mg/Nitro field MD RAYA 400mcg/Heparin 1500units) 15:15:07 Plavix P.O. 75 mg Ashu Diaza for JerardoPrabhjot Franklin antiplatelet MD [place] therapy 15:18:46 Versed I.V. 2 mg Ashu Diaza for sedation St Prabhjot Franklin MD, RN 15:18:55 Fentanyl I.V. 50 mcg Ashu Choe for sedation St Prabhjot Franklin MD RN 15:28:16 Heparin Bolus I.V. 5000 Ashu Choe for francisca ified units St Prabhjot Franklin anticoagulation with Dr. RAYA RN [facility] Procedure Log Time Note 14:45:46 Ana Sexton RT(R) sent for patient. Start room use. 14:53:08 Informed consent obtained and on chart 14:53:40 Procedure Status Urgent Heart Cath (IP). 14:53:41 Time tracking: Regular hours (M-F 7:00 - 5:00) 14:53:44 Plan of Care:Hemodynamics will remain stable., Cardiac rhythm will remain stable., Comfort level will be maintained., Respiratory function will remain adequate., Patient/ family verbilizes understanding of procedure., Procedure tolerated without complication., Recovers from procedure without complications.. 14:54:07 H&P Date Dictated: 08/16/2019 ER History on chart.. 14:55:50 Patient allergic to Other allergyBENADRYL 14:58:28 Patient Weight : 189.6 lbs 14:58:30 Patient Height : 72.83 inches 14:59:34 Patient received from Med II to CCL 1 Alert and oriented. Tansferred to table in Supine position. 14:59:35 Warm blankets applied, and michele hugger turned on for patient comfort. 14:59:35 Correct patient and procedure confirmed by team. 14:59:36 ECG and BP/O2 sat monitors applied to patient. 15:00:58 Pre-procedure instructions explained to patient. 15:00:58 Pre-op teaching completed and patient verbalized understanding. 15:01:00 Patient NPO since Midnight. 15:01:04 Is patient on blood thinner?Yes 15:01:08 ACC The patient was administered the following blood thiners within the last 24 hours: ACCPlavix 15:01:10 Patient diabetic? No. 15:01:16 Previous problem with sedation/anesthesia? No ? 15:01:18 Snore? Yes 15:01:18 Sleep apnea? Yes 15:01:19 Deviated septum? No 15:01:20 Opens mouth fully? Yes 15:01:21 Sticks out tongue? Yes 15:01:24 Airway obstruction? No ? 15:01:25 Dentures? No ? 15:01:30 Pre procedure: right dorsailis pedis pulse 1+ Palpable, but thready & weak; easily obliterated 15::33 Modified Herson's test Ulnar < 7 seconds 15::39 Lab Result : Creatinine 1.5 mg/dl : Lab Result : BUN 13 mg/dl 15:: Lab Result : eGFR AM 61.47882 ml/min 15:: Lab Result : Hemoglobin 11.9 g/dl : Lab Result : Hematocrit 34.5 % 15::43 Lab results completed and on chart. 15:03:08 Right Radial & Right Groin area was prepped with chlora-prep and draped in sterile fashion 15:03:08 Alarms reviewed by R. N. 15:03:09 Sharps counted by scrub and verified by R.N. 15:04:42 Vital chart was started 15:04:43 Baseline sample Acquired. 15:04:47 Rhythm: sinus rhythm 15:04:48 Full Disclosure recording started 15:06:28 Use device set Radial Dx or PCI 15:06:29 ACIST Syringe (81058) opened to sterile field. 15:06:31 Bag Decanter (2002S) opened to sterile field. 15:06:31 ACIST Hand Control (83225) opened to sterile field. 15:06:32 ACIST Manifold (57383) opened to sterile field. 15:06:33 Tegaderm 4 x 4 (1626W) opened to sterile field. 15:06:35 Medline Cath Pack ([id number]) opened to sterile field. 15:06:35 MBrace Wrist Support (214011580) opened to sterile field. 15:06:37 EMERALD Guide Wire (107-529) opened to sterile field. 15:06:38 SHEATH 6FR RAIN (5064725) opened to sterile field. 15:14:22 0.9% NaCl 100 ml/hr I.V. was administered by Daija Franklin RN; used for procedure; Verbal order read back and verified. 15:14:30 Oxygen 2 l/min etCO2 Nasal cannula was administered by Daija Franklin RN; used for procedure; Verbal order read back and verified. 15:14:35 Lidocaine 2% 20ml vial added to field was administered by Ashu Kurtz MD; for local anesthetic; Verbal order read back and verified. 15:14:39 Heparin Flush Bag (1000units/500ml NS) 2 bags added to field was administered by Ashu Kurtz MD; used for procedure; Verbal order read back and verified. 15:14:46 Radial Cocktail (Verapamil 2mg/Nitro 400mcg/Heparin 1500units) 1 syringe added to field was administered by Ashu Kurtz MD; used for procedure; Verbal order read back and verified. 15:15:07 Plavix 75 mg P.O. was administered by Daija Franklin RN; for antiplatelet therapy; Verbal order read back and verified. 15:16:28 Physician arrived 15:16:29 --------ALL STOP TIME OUT------ 15:16:29 Final Timeout: patient, procedure, and site verified with staff and physician. All members of the team are in agreement. 15:16:32 Right Radial & Right Groin site verified by team. 15:16:39 Fire Safety Assessment: A--An alcohol-based skin anteseptic being used preoperatively., C--Open oxygen or nitrous oxide is being used., D--An ESU, laser, or fiber-optic light is being used. 15:17:01 Physical assessment completed. ASA score P 2 - A patient with mild systemic disease as per Ashu Kurtz MD. 15:17:08 3a) 45-59 Moderately reduced kidney function. 15:17:13 Maximum allowable contrast dose (3.7 X eGFR X 0.75)172 ml. 15:17:20 Sedation plan: IV Moderate Sedation Medication:Versed, Fentanyl 15:18:46 Versed 2 mg I.V. was administered by Daija Franklin RN; for sedation; Verbal order read back and verified. 15:18:55 Fentanyl 50 mcg I.V. was administered by Daija Franklin RN; for sedation; Verbal order read back and verified. 15:19:02 Procedure started. 15:19:09 Local anesthetic to right radial artery with Lidocaine 2% by Ashu Kurtz MD.INITIAL ACCESS ONLY 15:19:48 Arrival Date: 08/17/2019 12:00:00 AM 15:20:28 A 6 Fr Short sheath was inserted into the Right Radial artery 15:21:18 Zero performed for pressure channel P1 15:21:45 A DIAGNOSTIC Conifer 110cm 5 Fr catheter (887909) was advanced over the wire and used for Procedure. 15:23:20 LV gram done using HADDAD 15::25 Injector settings: Ml/sec: 5, Volume: 15, 15:23:58 EF : 45 % 15:24:00 LV hemodynamics recorded. 15:24:21 LCA angiography performed. 15:24:27 Injector settings: Ml/sec: 3, Volume: 6, 15:25:11 Risk of Mortality: 0.2 15:25:16 Risk of blood transfusion: 1.2 15:25:20 Risk of DENIA: 2.6 15:25:57 RCA angiography performed. 15:26:02 Injector settings: Ml/sec: 3, Volume: 6, 15:26:05 Catheter removed. 15:26:06 Proceeding to intervention. 15:28:01 GUIDE 6FR XBLAD 3.5 catheter ([id number]) opened to sterile field. 15:28:02 WHISPER 300cm guide wire ([id number]) opened to sterile field. 15:28:04 INFLATOR Merit BasixCompak (PX0110) opened to sterile field. 15:28:16 Heparin Bolus 5000 units I.V. was administered by Daija Franklin RN; for anticoagulation; verified with Dr. Dash Verbal order read back and verified. 15:28:17 ACC Pre-intervention LATOSHA Flow is 3. 15:28:55 Pre PCI Site: [place] mLAD has 80% stenosis. 15:29:06 6 Fr xblad3.5 guide catheter was inserted over the wire 15:29:15 whisper 300 wire advanced. 15:32:21 Place stent Inflation Number: 1 A BERTHA OTW 3.5 x 12 stent ([id number]) was prepped and advanced across the Mid LAD . The stent was deployed at 14 NRACISO for 0:20 (min:sec) . 15:33:01 Stent catheter was removed intact over wire. 15:33:03 Wire removed. 15:33:04 Guide catheter removed. 15:33:16 Post PCI Site: [place] mLAD has 0% stenosis. 15:33:45 ZEPHYR REGULAR TR BAND (462991) opened to sterile field. 15:34:01 Sheath removed intact; hemostasis achieved with Mechanical Compression to the Right Radial artery. 15:34:05 Procedure ended.(Physican Out) 15:34:42 Contrast amount:Isovue 300 76ml. 15:34:45 Maximum allowable dose exceeded? No. 15:34:47 Sharps counted by scrub and verified by R.N. 15:35:05 Fluoroscopy time 04.10 minutes. 15:35:12 Fluoroscopy dose: 563 mGy 15:35:12 Flurop Dose total: 563 15:35:26 Dose Area Product 83129 mGy/cm. 15:35:32 Jericho band inflated with 10cc of air. 15:35:43 Post right radial artery:stable 15:35:49 Post-procedure physical assessment completed. ASA score P 2 - A patient with mild systemic disease as per Ashu Kurtz MD. 15:35:58 Post procedure rhythm: unchanged. 15:36:02 Estimated blood loss: 10 ml 15:37:10 Post procedure instruction explained to patient.Patient verbalizes understanding. 15:37:11 Patient needs reinforcement of post procedure teaching. 15:37:34 Procedure type changed to Cath procedure, Diagnostic procedure, LHC, C w/Coronaries, Sedation Charges, Moderate Sedation up to 15 minutes, PCI procedure, Coronary Stent, Coronary Stent Initial, Hemochron ACT Test 15:37:36 Procedure and supply charges have been captured, reviewed, submitted and are correct. 15:37:40 ACT drawn and resulted at 254 seconds. (normal therapeutic range 180-240 seconds). 15:38:31 Procedure Complication : No complications 15:38:35 Vital chart was stopped 15:38:38 [facility] Findings: MVD- PCI performed (see procedure note) 15:38:43 Operative report dictated upon procedure completion. 15:38:44 See physician's report for complete and final results. 15:38:48 Report given to Med/Surg. 15:38:53 Patient transfered to Med/Surg with Bed. 15:38:57 Procedure ended. 15:38:57 Full Disclosure recording stopped 15:39:10 ACC-PCI Only Patient was given prescriptions, or instructed by Ashu Kurtz MD to start/continue the following medications upon discharge: Plavix 15:39:13 End room use (Document Last) Intervention Summary Intervention Notes Time ActionType Lesion and Equipment Action# Pressure Duration Attributes Used 15:32:21 Place stent Mid LAD BERTHA OTW 3.5 1 14 00:20 x 12 stent ([id number]) Device Usage Item Name Manufacture Quantity Catalog Hospital Part Current Mini mal Lot# / Number Charge Number Stock Stock Serial# Code ACIST Syringe Acist 1 50143 822433 646290 488865 20 (95527) Medical Systems Inc Bag Decanter Microtek 1 2001S 476459 44062 928564 5 (2001S) Medical Inc. ACIST Hand Acist 1 22134 869696 339655 341814 5 Control Medical (18571) Systems Inc ACIST Acist 1 98604 048961 185790 126600 5 Manifold Medical (10364) Systems Inc Tegaderm 4 x 3M 1 1626W 460122 563292 202753 5 4 (1626W) Medline Cath Medline 1 [id number] 149920 73660 916021 5 Pack ([id number]) MBrace Wrist Advanced 1 140-0250-00 143765 80206 720487 5 Support Vascular (980620055) Dynamics EMERALD Guide Cardinal 1 502-455 119057 418809 850067 5 Wire Health (502-455) SHEATH 6FR Cardinal 1 7181544 104667 4099846 034602 5 [facility] Health (6495509) DIAGNOSTIC Terumo 1 405013 707908 248014 350447 5 Conifer 110cm 5 Fr catheter (467681) GUIDE 6FR Cardinal 1 12292904 325851 265247 753596 10 XBLAD 3.5 Health catheter (46579442) WHISPER 300cm Tucker 1 [id number] 580554 748947 018681 5 guide wire Vascular (6254456US) INFLATOR Merit 1 DJ7533 708674 049702 454652 15 [facility] Medical BasixCompak (LO9061) BERTHA OTW 3.5 Medtronic 1 [id number] 724002 6562285 532788 5 x 12 stent ([id number]) ZEPHYR Cardinal 1 870475 757405 1216470 155342 5 REGULAR TR Health BAND (994565) Signature Audit Mica Stage Time Signature Unsigned Intra-Procedure 08/17/2019 Aimee 3:39:51 PM Madonna RT(R) (CV) Intra-Procedure 08/17/2019 Daija Franklin 3:40:24 PM RN Intra-Procedure 08/17/2019 Ashu Velazquez 3:40:45 PM Prabhjot RAYA [facility] [address] [place] [address]
[~2019-08-16 17:02] MED LIST changes: +PROCARDIA XL60 MG
[2019-08-16 17:26] LABS: BASOPHILS 0.5 % (0-2); EOSINOPHILS 2.2 % (0-7); HEMATOCRIT 39.3 % (42.0-54.0); HEMOGLOBIN 13.6 g/dL (13.5-17.5); IMMATURE GRANULOCYTES 0.2 % (0-5); LYMPHOCYTES 32.1 % (15-50); MCH 28.5 pg (26.0-34.0); MCHC 34.6 g/dL (31.0-37.0); MCV 82.2 fL (80.0-100.0); MEAN PLATELET VOLUME 9.1 fL (7.4-10.4); MONOCYTES 6.5 % (2-11); NEUTROPHILS 58.5 % (40-80); PLATELET COUNT 257 10x3/uL (130-400); RBC 4.78 10x6/uL (4.20-6.10); RDW 13.1 % (11.5-14.5); WBC 6.3 10x3/uL (4.8-10.8)
[2019-08-16] MEDS ORDERED: CYCLOBENZAPRINE10 MG PO (17:28)
[2019-08-16] MEDS ORDERED: CATAPRES0.1 MG PO (17:28)
[2019-08-16] MEDS ORDERED: TYLENOL W/CODEI1 TAB PO (17:29)
[2019-08-16] MEDS ORDERED: PROCARDIA XL60 MG PO (17:29)
[2019-08-16 17:39] LABS: APTT 28.1 SECONDS (22.8-39.4); INR 0.94 (0.85-1.17); PROTIME 12.5 SECONDS (11.6-15.0)
[2019-08-16 17:41] LABS: CALC OSMOLALITY 278 mosm/kg (275-300); CALCIUM 8.6 mg/dL (8.5-10.1); CHLORIDE - SERUM 100 mmol/L (98-107); CREATININE - SERUM 1.6 mg/dL (0.6-1.3); GLUCOSE 110 mg/dL (74-106); POTASSIUM - SERUM 3.7 mmol/L (3.5-5.1); SODIUM 139 mmol/L (136-145); UREA NITROGEN 13 mg/dL (7-18); eGFR NON AFRICAN AMERICAN 48 mL/min (90-120)
[2019-08-16 17:59] LABS: ALBUMIN 4.1 g/dL (3.4-5.0); ALKALINE PHOSPHATASE 72 U/L (30-120); ALT (SGPT) 19 U/L (10-68); BILIRUBIN - TOTAL 0.32 mg/dL (0.2-1.3); CKMB 0.8 U/L (0.0-3.6); CREATINE KINASE 49 UL (21-232); MAGNESIUM - SERUM 2.1 mg/dL (1.8-2.4); PROTEIN - SERUM 7.5 g/dL (6.4-8.2)
[2019-08-16 18:02] LABS: TROPONIN-I < 0.017 ng/mL (0.000-0.060)
--- NOTE | 2019-08-16 18:44 | NUR ---
REPORT TO ENA SLAUGHTER
[2019-08-16 19:45] LABS: % SATURATION 20 % (15-55); IRON 64 ug/dl (35-150); TOTAL IRON BIND CAPACITY 305 ug/dl (260-445); UNSAT IRON BIND CAPACITY 241 ug/dl (150-375)
--- NOTE | 2019-08-16 20:53 | NUR ---
PATIENT ARRIVED IN WHEEL CHAIR. IV FLUIDS STARTED. FICTION AND NONFICTION AUTHOR PLACED ON PATIENT, ASSESSMENT, MED REC, AND HISTORY COMPLETED. PATIENT IS ON HEART HEALTHY DIET. HE WAS GIVEN A SANDWICH. CHEST PAIN IS WORSENED WHEN PUSHING ON CHEST. WE WILL CONTINUE TO MONITOR HIS CHEST PAIN.
[2019-08-17] VITALS: BP 147/78
[2019-08-17 00:01] LABS: CKMB 0.8 U/L (0.0-3.6); CREATINE KINASE 49 UL (21-232); TROPONIN-I < 0.017 ng/mL (0.000-0.060)
[2019-08-17 04:00] VITALS: BP 157/86
--- NOTE | 2019-08-17 05:12 | NUR ---
PATIENT WAS SLEEPING COMFORTABLY IN BED. EKG DONE THIS AM. PATIENT IS HAVING PROBLEMS KEEPING ARM STRAIGHT AND THE IV PUMP ALARM GOING OFF. HE DID NOT WANT ANOTHER IV INSERTED THOUGH. PATIENT'S CHEST PAIN SEEMS TO WORSEN WHEN PUSHING ON CHEST, SO IT COULD BE MUSCULOSKELETOL PAIN. WE WILL CONTINUE TO MONITOR HIS RATE AND RHYTHYM ON TELEMETRY.
[2019-08-17 06:31] LABS: BASOPHILS 0.3 % (0-2); EOSINOPHILS 3.2 % (0-7); HEMATOCRIT 34.5 % (42.0-54.0); HEMOGLOBIN 11.9 g/dL (13.5-17.5); IMMATURE GRANULOCYTES 0.2 % (0-5); LYMPHOCYTES 31.7 % (15-50); MCH 28.4 pg (26.0-34.0); MCHC 34.5 g/dL (31.0-37.0); MCV 82.3 fL (80.0-100.0); MEAN PLATELET VOLUME 9.2 fL (7.4-10.4); MONOCYTES 7.7 % (2-11); NEUTROPHILS 56.9 % (40-80); PLATELET COUNT 207 10x3/uL (130-400); RBC 4.19 10x6/uL (4.20-6.10); RDW 13.2 % (11.5-14.5); WBC 6.3 10x3/uL (4.8-10.8)
[2019-08-17 06:47] LABS: ALBUMIN 3.5 g/dL (3.4-5.0); ALKALINE PHOSPHATASE 56 U/L (30-120); BILIRUBIN - TOTAL 0.32 mg/dL (0.2-1.3); CALC OSMOLALITY 277 mosm/kg (275-300); CALCIUM 8.1 mg/dL (8.5-10.1); CARBON DIOXIDE 30.4 mmol/L (21.0-32.0); CHLORIDE - SERUM 104 mmol/L (98-107); CKMB 1.2 U/L (0.0-3.6); CREATINE KINASE 51 UL (21-232); CREATININE - SERUM 1.4 mg/dL (0.6-1.3); GLUCOSE 90 mg/dL (74-106); PHOSPHOROUS 3.3 mg/dL (2.5-4.9); POTASSIUM - SERUM 3.4 mmol/L (3.5-5.1); PROTEIN - SERUM 6.4 g/dL (6.4-8.2); SODIUM 139 mmol/L (136-145); UREA NITROGEN 13 mg/dL (7-18); eGFR NON AFRICAN AMERICAN 55 mL/min (90-120)
[2019-08-17 06:51] LABS: ALT (SGPT) 14 U/L (10-68); TROPONIN-I < 0.017 ng/mL (0.000-0.060)
[2019-08-17 09:46] VITALS: BP 151/93
[2019-08-17 11:41] LABS: CKMB 1.4 U/L (0.0-3.6); CREATINE KINASE 57 UL (21-232)
[2019-08-17 11:46] LABS: TROPONIN-I < 0.017 ng/mL (0.000-0.060)
[2019-08-17 12:00] VITALS: BP 167/99
[2019-08-17 12:54] LABS: ANION GAP 10.7 mmol/L (8-16); CALCIUM 7.9 mg/dL (8.5-10.1); CREATININE - SERUM 1.5 mg/dL (0.6-1.3); POTASSIUM - SERUM 3.7 mmol/L (3.5-5.1)
[2019-08-17] MEDS ORDERED: BAYER CHEWABLE81 MG PO (16:27)
--- NOTE | 2019-08-17 17:04 | MORECARE ---
CASE MANAGEMENT DISCHARGE SUMMARY PATIENT: JAELYN BAKER UNIT: [id number] ADM DATE: 08/16/19 AGE: 59 : 64 SEX: M ROOM/BED: D.2118 AUTHOR: ALEXSANDRA BERNAL PHYSICIAN: REFERRING PHYSICIAN: ANATOLIY NORRIS MD DATE OF SERVICE: 08/17/19 Discharge Plan Patient Name: JAELYN BAKER [facility] [facility] 1960 Planned Disposition: Home Anticipated Discharge Date: 08/17/19 Discharge Date: Expected LOS: 1 Initial Reviewer: [id number] Initial Review Date: 08/16/2019 Generated: 08/17/19 6:04 pm Patient Name: JAELYN BAKER Page 38670 at 1704 All edits/amendments must be made on the electronic document DICTATION DATE: 08/17/191703 SYS DIR: LOLIS 08/17/191703 RPT#: [id number] DC DATE: STATUS: ADM IN [facility] [address] [place] [address] END OF REPORT
--- NOTE | 2019-08-17 18:29 | NUR ---
PT DISCHARGED HOME VIA WHEELCHAIR WITH FAMILY. PIV REMOVED CATHETER TIP FULLY INTACT. TELEMETRY REMOVED AND RETURNED. PT SIGNED PROPER DISCHARGE INSTRUCTIONS AND REMOVED ALL VALUABLES FROM THE ROOM.
--- NOTE | 2019-08-18 08:26 | CN ---
PATIENT NAME:JAELYN BAKER MEDICAL RECORD: [id number] : 64 LOCATION:D. D.2118 ADMIT DATE: 08/16/19 ACCOUNT: [id number] CONSULTING PHYSICIAN: RILEY HOFFMAN MD REFERRING PHYSICIAN: ANATOLIY NORRIS MD DATE OF CONSULTATION: 08/17/2019 HISTORY OF PRESENT ILLNESS: A 59-year-old gentleman with known history of coronary artery disease, status post intervention, most recently in January of this, has a history of hypertension, has been having intermittent chest tightness and pressure, angina over the past couple of weeks, had onset of rest symptomology yesterday, radiating to the jaw, accompanied by dyspnea, diaphoresis. We are asked to see him concerning his cardiovascular status. PAST MEDICAL HISTORY: Includes; 1. History of hypertension. 2. Hyperlipidemia. 3. Coronary artery disease as described above. MEDICATIONS: Include Flexeril 10 mg p.o. t.i.d. p.r.n., Plavix 75 every day, metoprolol 100 mg p.o. b.i.d., nifedipine 60 mg p.o. every day, clonidine 0.1 b.i.d., Junction 1 every 4 hours p.r.n., Celexa 40 every day, hydrochlorothiazide 12.5 every day. SOCIAL HISTORY: Nonsmoker, nondrinker. Easily takes care of all his ADLs. Has been under more stress with his father being sick lately. REVIEW OF SYSTEMS: The patient reports easy bruising but reports no swollen glands. The patient reports no fever, no night sweats, no significant weight gain, no significant weight loss. No significant exercise tolerance. The patient reports no dry eyes, no irritation, no vision change. Patient reports no difficulty hearing and no ear pain. Patient reports no frequent nose bleeds or nose and sinus problems. Patient reports on arm pain on exertion. No shortness of breath while lying down. No history of heart murmur. Patient reports no cough, no wheezing or coughing up blood. Patient reports no abdominal pain, no vomiting. Normal appetite. No diarrhea and not vomiting blood. No nausea and no constipation. Patient reports no incontinence. No difficulty urinating. No hematuria. No increased frequency. Patient reports no muscle aches. No weakness, no arthralgias, no back pain. No swelling of the extremities. Patient reports no abnormal mole, no jaundice, no rashes. Reports no loss of consciousness. No weakness and no numbness. No seizures, dizziness, or headaches. The patient reports no depression, no sleep disturbance, feeling safe in a relationship and no alcohol abuse. Patient reports on fatigue. Reports no runny nose or sinus pressure. No itching, no hives, and no frequent sneezing. PHYSICAL EXAMINATION: GENERAL: Well-developed, well-nourished, no acute distress, appears stated age. VITAL SIGNS: Blood pressure 157/86, pulse 67 and regular. HEENT: Normocephalic, atraumatic. NECK: No JVD or bruit. HEART: Regular. Questionable S4 gallop. LUNGS: Good air excursion. ABDOMEN: Soft, nontender. EXTREMITIES: Pulses 2+. There is no edema. CONSULT REPORT [id number] JAELYN BAKER DIAGNOSTIC DATA: EKG shows nonspecific ST-T changes. IMPRESSION: Recurrent angina, certainly right at the window for restenosis, although this could be secondary to elevated pressures and demand ischemia. PLAN: For angiography, intervention based on the above. TRANSINT:[id number] Voice Confirmation ID: [id number] DOCUMENT ID: [id number] RILEY HOFFMAN MD at 0826 CC: [id number] DICTATION DATE: 08/17/19844 SHAKE OUT WORKER: 08/17/19 1131 DIS IN 08/17/19 [id number] [place] [address]
--- NOTE | 2019-08-18 08:26 | OP ---
PATIENT NAME: JAELYN BAKER MEDICAL RECORD: [id number] :64 LOCATION:D.M2 D.2118 ADMISSION DATE:08/16/19 SURGEON: RILEY HOFFMAN MD DATE OF OPERATION: 08/17/2019 PROCEDURE: Left heart catheterization, selective coronary angiography, right radial approach. CATHETERS: Radial sheath, Shepherd catheter. The procedure was well tolerated. The patient returned to guzmán, sheath removed. TR band placed. FINDINGS: Left ventriculography, 30-degree HADDAD view shows mild LV hypokinesis. Overall, function appears to be reduced at 40% to 45%. CORONARY ANATOMY: LEFT MAIN: Main is free of disease. LAD: Has end-stent restenosis approximately 80% very proximal portion. CIRCUMFLEX: Large vessel, free of disease. RIGHT CORONARY ARTERY: The right coronary artery is a medium size right, free of disease. IMPRESSION: End-stent restenosis. PLAN: Intervention momentarily. DESCRIPTION OF PROCEDURE: Using indwelling sheath, an XB LAD guide catheter provided excellent guide catheter support followed by a 300 cm Whisper wire was placed across the occluded LAD down the distal portion of vessel. Stent deployed was a 3.5 x 12 Dike drug-eluting stent up to 14 atmospheres, 45 seconds. Final angiography shows excellent resolution of an 80% restenosis LAD down this with no significant residual. LATOSHA flow was 3 throughout the procedure. Sheath was closed with ExoSeal device. The patient previously on Plavix. Heparin used during the case. TRANSINT:[id number] Voice Confirmation ID: [id number] DOCUMENT ID: [id number] RILEY HOFFMAN MD at 0826 CC: [id number] DICTATION DATE: 08/17/19 1549 EMPLOYMENT OFFICE CLERK: 08/18/19 0008 DIS IN 08/17/19 [address] [place] [address]
== END 2019-08-17 18:30 | disposition home or self-care (01) ==
LOC: D.ER 17:02 → D.M2 18:38 → OBSVTIME 18:38 → D.M2 18:38
PROVIDERS: Family Medicine; Internal Medicine Interventional Cardiology; ADMIT Family Medicine; ATTEND Family Medicine
DX: I25.110 Atherosclerotic heart disease of native coronary artery with unstable angina pectoris (principal); I10 Essential (primary) hypertension; E78.5 Hyperlipidemia, unspecified; F41.9 Anxiety disorder, unspecified; D64.9 Anemia, unspecified; N17.9 Acute kidney failure, unspecified

== ENCOUNTER 2019-10-14 20:13 | Observation (INO) | payer BC ==
[~2019-10-14] VITALS: Ht 185.4 cm; Wt 84.1 kg
--- NOTE | ~2019-10-14 | HEMODYNAMI ---
PATIENT:JAELYN BAKER MEDICAL RECORD: [id number] : 64 [facility] D.2120 [id number] ADMISSION DATE: 10/14/19 Generatedon:10/16/201912:37 Patient name: JAELYN BAKER Patient #: [id number] SSN: [id number] : 1960 Date of study: 10/16/2019 Page: Of Hemodynamic Procedure Report Patient Data Patient Demographics Procedure consent was obtained First Name: JAELYN Gender: Male Last Name: OLIVIA : 1960 [facility] Initial: HAL Age: 59 year(s) Patient #: [id number] Race: SSN: [id number] Additional ID: [id number] Contact details [address]: [address] [place] [address] COURT State: [place] City: [place] Zip code: [address] Past Medical History History of disease Date Diagnosis Comments CAD Allergies Allergen Reaction Date Comments Reported Other allergy 10/15/2017 Benadryl Other allergy 11/04/2017 Benadryl Other allergy 09/12/2018 DIPHENHYDRAMINE Other allergy 08/17/2019 BENADRYL Other allergy 10/16/2019 benadryl Admission Admission Data Admission Date: 10/14/2019 Admission Time: 22:43 Arrival Date: 10/16/2019 Arrival Time: 0:00 Admit Source: Other Insurance Payor: Private Room #: D.2120 health insurance Height (in.): 73 BSA: 2.08 (m2) Height (cm.): 185.42 BMI: 24.46 (kg/m2) Weight (lbs.): 185.39 Weight (kg.): 84.09 Lab Results Lab Result Date: 10/16/2019 Lab Result Time: 0:00 Biochemistry Name Units Result Min Max BUN mg/dl 13 --(--*-)-- 7 18 Creatinine mg/dl 1.3 --(---*)-- 0.6 1.3 eGFR ml/min 60 *-(----)-- 90 120 NONAFRICAN Troponin l ng/ml 0.017 --(-*--)-- 0 0.06 CBC Name Units Result Min Max Hematocrit % 38 *-(----)-- 42 54 Hemoglobin g/dl 13.1 -*(----)-- 13.5 17.5 Procedure Procedure Types Cath Procedure Diagnostic Procedure C [facility] w/Coronaries Procedure Description Procedure Date Procedure Date: 10/16/2019 Procedure Start Time: 12:15 Procedure End Time: 12:30 Procedure Staff Name Function Ashu Kurtz MD Performing Physician Sabi Kim, RN Nurse Claudia West RT Scrub Ana Sexton RT Monitor Jessica Fong RN Nurse Procedure Data Cath Procedure Fluoroscopy Diagnostic fluoroscopy Total fluoroscopy Time: 3 time: 3 min min Diagnostic fluoroscopy Total fluoroscopy dose: 336 dose: 336 mGy mGy Contrast Material Contrast Material Type Amount (ml) Isovue 300 40 Entry Location Entry Primary Successful Side Size Upsize Upsize Entry Closure Mehta ccessful Closure Location (Fr) 1 (Fr) 2 (Fr) Remarks Device Remarks Radial Right 6 Fr Mechanical artery Short Compression Estimated blood loss: 10 ml Diagnostic catheters Device Type Used For End Catheter Placement DIAGNOSTIC Ky 110cm Procedure 5Fr catheter ([id number]) DIAGNOSTIC [place] 110cm 5 Procedure Fr catheter (438282) DIAGNOSTIC Pigtail 5Fr Ventriculography catheter ([id number]) Procedure Complications No complications Procedure Medications Medication Administration Route Dosage Fentanyl I.V. 50 mcg Versed I.V. 1 mg 0.9% NaCl I.V. 100 ml/hr Heparin Flush Bag added to field 2 bags (1000units/500ml NS) Lidocaine 2% added to field 20 Radial Cocktail I.A. 1 syringe (Verapamil 2mg/Nitro 400mcg/Heparin 1500units) Fentanyl I.V. 50 mcg Versed I.V. 1 mg Versed I.V. 1 mg Plavix P.O. 75 mg Mechanical Ventricular Support Other mechanical ventricular support: Hemodynamics Rest BSA: 2.08 (m2) HGB: 13.1 (g/dl) O2 Consumption: Estimated: 248.19 (ml/min) O2 Co nsumption indexed: Estimated:119.32 (ml/min/m) Heart Rate: 73 (bpm) Gradients Valve Time Site Site Mean SEP/DFP Peak To Heart Use 1 2 (mmHg) (sec/min) Peak Rate (mmHg) (bpm) Aortic 12:25 LV AO 68 Snapshots Pre Cath Intra NCS Post Cath Vital Signs Time Heart Resp SPO2 etCO2 NIBP (mmHg) Rhythm Pain Sedation Rate (ipm) (%) (mmHg) Status Level (bpm) 12:04:54 70 4 100 0 163/103(137) NSR 0 (11) 10(A) , No pain 12:10:22 73 5 100 0 159/103(126) NSR 0 (11) 10(A) , No pain 12:14:48 77 12 100 0 161/97(116) NSR 0 (11) 10(A) , No pain 12:19:04 78 13 100 0 151/90(110) NSR 0 (11) 9(A) , No pain 12:23:25 84 13 96 0 156/94(127) NSR 0 (11) 9(A) , No pain 12:27:51 71 22 99 0 154/111(131) NSR 0 (11) 10(A) , No pain Medications Time Medication Route Dose Verified Delivered Reason Notes Effectiveness by by 12:19:01 Fentanyl I.V. 50 mcg Sabi Sabi for sedation Judy Kim RN RN 12:19:06 Versed I.V. 1 mg Sabi Sabi for sedation Judy Kim RN RN 12:19:22 0.9% NaCl I.V. 100ml/hr Sabi Sabi Per Judy Kim, physician RN RN 12:19:30 Heparin Flush added 2 bags Sabi Sabi used for Bag to Judy Kim procedure (1000units/500ml [facility] RN RN NS) 12:19:39 Lidocaine 2% added 20ml Sabi Ashu for local to vial St Prabhjot Kim anesthetic field ENA RAYA 12:19:54 Radial Cocktail I.A. 1 Sabi Ashu for (Verapamil syringe St Prabhjot Kim vasodilation 2mg/Nitro RN 400mcg/Heparin 1500units) 12:22:14 Fentanyl I.V. 50 mcg Sabi Sabi for sedation Judy Kim RN RN 12:22:18 Versed I.V. 1 mg Sabi Sabi for sedation Judy Kim RN RN 12:25:35 Versed I.V. 1 mg Sabi Sabi for sedation Judy Kim, RN RN 12:33:07 Plavix P.O. 75 mg Sabi Sabi for Judy Kim, antiplatelet RN RN therapy Procedure Log Time Note 11:43:23 Informed consent obtained and on chart 11:43:30 Other mechanical ventricular support: 11:43:35 Diagnostic Cath Status : Urgent 11:45:35 Arrival Date: 10/16/2019 12:00:00 AM 11:45:36 Admit Source: Other 11:45:40 Patient Height : 73 inches 11:45:46 Patient Weight : 185.39 lbs 11:45:57 Insurance Payor : Private health insurance 11:46:21 ACC Patient presents with Stable Angina CCS Anginal Class 2--Slight limitation of ordinary activity. 11:46:25 Procedure Status Urgent Heart Cath (IP). 11:46:47 Ana Sexton RT(R) sent for patient. Start room use. 11:47:12 Time tracking: Regular hours (M-F 7:00 - 5:00) 11:47:16 Plan of Care:Hemodynamics will remain stable., Cardiac rhythm will remain stable., Comfort level will be maintained., Respiratory function will remain adequate., Patient/ family verbilizes understanding of procedure., Procedure tolerated without complication., Recovers from procedure without complications.. 11:47:27 H&P Date Dictated: 10/14/2019 Within 30 days and on chart.. 11:47:27 Pre-procedure instructions explained to patient. 11:47:28 Pre-op teaching completed and patient verbalized understanding. 11:47:29 Family unavailable. 11:47:32 Patient NPO since Midnight. 11:47:41 Lab results completed and on chart. 11:48:27 Lab Result : BUN 13 mg/dl 11:48:27 Lab Result : Troponin l 0.017 ng/ml 11:48:27 Lab Result : Creatinine 1.3 mg/dl 11:48:27 Lab Result : Hemoglobin 13.1 g/dl 11:48:27 Lab Result : eGFR NONAFRICAN 60 ml/min 11:48:27 Lab Result : Hematocrit 38 % 11:48:53 Stress Test: no; N/A ? 11:50:22 Risk of Mortality: 0.1 11:50:25 Risk of blood transfusion: 0.4 11:50:27 Risk of DENIA: 0.3 11:50:37 2) 60-89 Mildly reduced kidney function, and other findings (as for stage 1) point to kidney disease. 11:50:41 Maximum allowable contrast dose (3.7 X eGFR X 0.75)167 ml. 12:03:35 Patient received from Med II to CCL 1 Alert and oriented. Tansferred to table in Supine position. 12:03:36 Warm blankets applied, and michele hugger turned on for patient comfort. 12:03:37 Correct patient and procedure confirmed by team. 12:03:37 ECG and BP/O2 sat monitors applied to patient. 12:03:38 Vital chart was started 12:03:39 Full Disclosure recording started 12:03:40 Baseline sample Acquired. 12:03:44 Rhythm: sinus rhythm 12:03:58 Patient allergic to Other allergybenadryl 12:10:15 Is the patient allergic to Iodine/contrast media? No. 12:10:19 Was the patient premedicated? No 12:10:20 Is patient on blood thinner?Yes 12:10:24 ACC The patient was administered the following blood thiners within the last 24 hours: ACCPlavix 12:10:47 Patient diabetic? No. 12:10:55 Snore? Yes 12:10:56 Sleep apnea? No 12:11:05 Dentures? Yes ? 12:11:09 Baseline sample Acquired. 12:11:38 IV patent on arrival in right forearm with 0.9% NaCl at KVO. 12:11:44 Right Radial & Right Groin area was prepped with chlora-prep and draped in sterile fashion 12:11:45 Alarms reviewed by R. N. 12:11:46 Sharps counted by scrub and verified by R.N. 12:11:56 Physician arrived 12:11:57 --------ALL STOP TIME OUT------ 12:11:58 Final Timeout: patient, procedure, and site verified with staff and physician. All members of the team are in agreement. 12:12:00 Right Radial & Right Groin site verified by team. 12:12:15 Fire Safety Assessment: A--An alcohol-based skin anteseptic being used preoperatively., C--Open oxygen or nitrous oxide is being used., D--An ESU, laser, or fiber-optic light is being used. 12:12:21 Physical assessment completed. ASA score P 2 - A patient with mild systemic disease as per Ashu Kurtz MD. 12:12:25 Sedation plan: IV Moderate Sedation Medication:Versed, Fentanyl 12:13:57 Use device set Radial Dx or PCI 12:15:45 Procedure started. 12:15:56 Local anesthetic to right radial artery with Lidocaine 2% by Ashu Kurtz MD.INITIAL ACCESS ONLY 12:15:57 ACIST Syringe (46199) opened to sterile field. 12:15:58 Medline Cath Pack ([id number]) opened to sterile field. 12:15:58 Bag Decanter (2002S) opened to sterile field. 12:15:59 ACIST Hand Control (05876) opened to sterile field. 12:15:59 ACIST Manifold (88683) opened to sterile field. 12:16:00 Tegaderm 4 x 4 (1626W) opened to sterile field. 12:16:00 MBrace Wrist Support ([id number]) opened to sterile field. 12:16:04 EMERALD Guide Wire (740-210) opened to sterile field. 12:16:06 SHEATH 6FR RAIN (3173462) opened to sterile field. 12:17:16 A 6 Fr Short sheath was inserted into the Right Radial artery 12:17:35 A DIAGNOSTIC Ky 110cm 5Fr catheter (704773) was advanced over the wire and used for Procedure. 12:19:01 Fentanyl 50 mcg I.V. was administered by Sabi Kim RN; for sedation; Verbal order read back and verified. 12:19:06 Versed 1 mg I.V. was administered by Sabi Kim RN; for sedation; Verbal order read back and verified. 12:19:22 0.9% NaCl 100ml/hr I.V. was administered by Sabi Kim RN; Per physician; Verbal order read back and verified. 12:19:30 Heparin Flush Bag (1000units/500ml NS) 2 bags added to field was administered by Sabi Kim RN; used for procedure; Verbal order read back and verified. 12:19:39 Lidocaine 2% 20ml vial added to field was administered by Ashu Kurtz MD; for local anesthetic; Verbal order read back and verified. 12:19:54 Radial Cocktail (Verapamil 2mg/Nitro 400mcg/Heparin 1500units) 1 syringe I.A. was administered by Ashu Kurtz MD; for vasodilation; Verbal order read back and verified. 12::26 Catheter removed. 12:21:01 UNABLE TO CANNULATE 12:21:14 A DIAGNOSTIC [place] 110cm 5 Fr catheter (796622) was advanced over the wire and used for Procedure. 12::14 Fentanyl 50 mcg I.V. was administered by Sabi Kim RN; for sedation; Verbal order read back and verified. 12::18 Versed 1 mg I.V. was administered by Sabi Kim RN; for sedation; Verbal order read back and verified. 12:23:38 RCA angiography performed. 12:23:44 LCA angiography performed. 12:23:49 Catheter removed. 12:24:00 A DIAGNOSTIC Pigtail 5Fr catheter (759709A) was advanced over the wire and used for Ventriculography. 12:25:02 Zero performed for pressure channel P1 12:25:35 Versed 1 mg I.V. was administered by Sabi Kim RN; for sedation; Verbal order read back and verified. 12:25:48 ZEPHYR REGULAR TR BAND (351795) opened to sterile field. 12::42 Sheath removed intact; hemostasis achieved with Mechanical Compression to the Right Radial artery. 12:27:18 Procedure ended.(Physican Out) 12:27:35 Fluoroscopy time 03.00 minutes. 12:27:39 Fluoroscopy dose: 336 mGy 12:27:39 Flurop Dose total: 336 12:27:45 Dose Area Product 27339 mGy/cm. 12:27:50 Contrast amount:Isovue 300 40ml. 12:27:54 Maximum allowable dose exceeded? No. 12:27:56 Sharps counted by scrub and verified by R.N. 12:28:00 Thurmond band inflated with 12cc of air. 12:28:02 Insertion/operative site no bleeding no hematoma. 12:28:04 Post Procedure Pulses reassessed and unchanged 12:28:10 Post-procedure physical assessment completed. ASA score P 2 - A patient with mild systemic disease as per Ashu Kurtz MD. 12:28:15 Estimated blood loss: 10 ml 12:28:17 Post procedure instruction explained to patient.Patient verbalizes understanding. 12:29:49 Procedure and supply charges have been captured, reviewed, submitted and are correct. 12:30:10 Procedure Complication : No complications 12:30:13 Vital chart was stopped 12:30:15 [facility] Findings: mild to moderate CAD (<70%) 12:30:19 Report given to [facility]. 12:: Patient transfered to [facility] with Bed. 12::24 Procedure ended. 12:30:24 Full Disclosure recording stopped 12:: End room use (Document Last) 12:33:07 Plavix 75 mg P.O. was administered by Sabi Kim RN; for antiplatelet therapy; Verbal order read back and verified. Device Usage Item Name Manufacture Quantity Catalog Hospital Part Current Minima l Lot# / Number Charge Number Stock Stock Serial# Code ACIST Acist 1 62325 282493 645975 [id number] 20 Syringe Medical (33760) Systems Inc Medline Medline 1 [id number] 934044 11406 967463 5 Cath Pack ([id number]) Bag Microtek 1 2001S 901725 08712 984994 5 Decanter Medical Inc. () ACIST Hand Acist 1 52489 625139 370085 473825 5 Control Medical (16689) Systems Inc ACIST Acist 1 91615 749869 777781 046345 5 Manifold Medical (45469) Systems Inc Tegaderm 4 3M 1 1626W 563151 349468 254905 5 x 4 (1626W) MBrace Advanced 1 140-0250-00 427363 30956 378242 5 Wrist Vascular Support Dynamics ([id number]) EMERALD Cardinal 1 502-455 833028 790071 908141 5 Guide Wire Health (306-455) SHEATH 6FR Cardinal 1 7331584 792624 4227800 228516 5 [facility] (4593588) DIAGNOSTIC Terumo 1 40-5023 253144 676754 174672 5 Ky 110cm 5Fr catheter (893723) DIAGNOSTIC Terumo 1 40-5013 509827 107595 567702 5 [place] 110cm 5 Fr catheter (838910) DIAGNOSTIC Cardinal 1 [id number] 961375 064971 471960 5 Pigtail 5Fr Health catheter (488966S) ZEPHYR Cardinal 1 621783 515099 2807962 945261 5 REGULAR TR Health BAND (194909) Signature Audit Tarkio Stage Time Signature Unsigned Intra-Procedure 10/16/2019 Ana Sexton 12:33:45 PM RT(R) Intra-Procedure 10/16/2019 Jessica 12:36:35 PM Hetal RN Intra-Procedure 10/16/2019 Ashu Velazquez 12:37:01 PM Prabhjot RAYA [facility] [address] [place] [address]
[~2019-10-14 20:13] MED LIST changes: +CYCLOBENZAPRINE10 MG PO; +PROCARDIA XL60 MG PO
[2019-10-14 20:40] LABS: BASOPHILS 0.5 % (0-2); HEMATOCRIT 36.6 % (42.0-54.0); HEMOGLOBIN 12.7 g/dL (13.5-17.5); LYMPHOCYTES 35.3 % (15-50); MCH 27.7 pg (26.0-34.0); MCHC 34.7 g/dL (31.0-37.0); MCV 79.7 fL (80.0-100.0); MEAN PLATELET VOLUME 8.9 fL (7.4-10.4); MONOCYTES 7.7 % (2-11); NEUTROPHILS 53.5 % (40-80); PLATELET COUNT 208 10x3/uL (130-400); RBC 4.59 10x6/uL (4.20-6.10); RDW 12.3 % (11.5-14.5); WBC 5.7 10x3/uL (4.8-10.8)
[2019-10-14 20:52] LABS: CALC OSMOLALITY 281 mosm/kg (275-300); CALCIUM 8.4 mg/dL (8.5-10.1); CARBON DIOXIDE 28.6 mmol/L (21.0-32.0); CHLORIDE - SERUM 102 mmol/L (98-107); CREATININE - SERUM 1.3 mg/dL (0.6-1.3); GLUCOSE 152 mg/dL (74-106); POTASSIUM - SERUM 3.1 mmol/L (3.5-5.1); SODIUM 139 mmol/L (136-145); UREA NITROGEN 15 mg/dL (7-18); eGFR NON AFRICAN AMERICAN 60 mL/min (90-120)
[2019-10-14 20:58] LABS: APTT 28.1 SECONDS (22.8-39.4); INR 1.03 (0.85-1.17); PROTIME 13.5 SECONDS (11.6-15.0)
[2019-10-14 21:08] LABS: ALBUMIN 3.7 g/dL (3.4-5.0); ALKALINE PHOSPHATASE 77 U/L (30-120); ALT (SGPT) 17 U/L (10-68); BILIRUBIN - TOTAL 0.24 mg/dL (0.2-1.3); CKMB 1.3 U/L (0.0-3.6); CREATINE KINASE 84 UL (21-232)
[2019-10-14 21:11] LABS: TROPONIN-I < 0.017 ng/mL (0.000-0.060)
[2019-10-14 22:14] VITALS: BP 154/81
[2019-10-15] VITALS (7 sets, daily range): BP systolic 122–182; BP diastolic 69–102; Ht 185.4 cm; Wt 84.1 kg
--- NOTE | 2019-10-15 07:00 | NUR ---
PT REPORT FROM ENA CAMBPELL
--- NOTE | 2019-10-15 09:09 | NUR ---
DR HOFFMAN CALLED AND NOTIFIED OF CONSULT
[2019-10-15 11:13] LABS: BASOPHILS 0.2 % (0-2); HEMOGLOBIN 13.1 g/dL (13.5-17.5); MCH 27.6 pg (26.0-34.0); MCHC 34.5 g/dL (31.0-37.0); MCV 80.2 fL (80.0-100.0); MEAN PLATELET VOLUME 9.1 fL (7.4-10.4); MONOCYTES 5.3 % (2-11); NEUTROPHILS 68.5 % (40-80); PLATELET COUNT 219 10x3/uL (130-400); RBC 4.74 10x6/uL (4.20-6.10); RDW 12.3 % (11.5-14.5); WBC 4.5 10x3/uL (4.8-10.8)
[2019-10-15 11:34] LABS: CALC OSMOLALITY 278 mosm/kg (275-300); CALCIUM 8.5 mg/dL (8.5-10.1); CARBON DIOXIDE 32.1 mmol/L (21.0-32.0); CHLORIDE - SERUM 103 mmol/L (98-107); CREATININE - SERUM 1.3 mg/dL (0.6-1.3); GLUCOSE 158 mg/dL (74-106); MAGNESIUM - SERUM 2.1 mg/dL (1.8-2.4); PHOSPHOROUS 2.1 mg/dL (2.5-4.9); POTASSIUM - SERUM 3.7 mmol/L (3.5-5.1); SODIUM 138 mmol/L (136-145); TROPONIN-I < 0.017 ng/mL (0.000-0.060); UREA NITROGEN 13 mg/dL (7-18); eGFR NON AFRICAN AMERICAN 60 mL/min (90-120)
--- NOTE | 2019-10-15 16:53 | NUR ---
RECEIVED PT TO ROOM 2119 VIA WHEELCHAIR, PT A/O X4, RESP EVEN AND NONLABORED ON RA. RT AC IV SL. WILL ASSESS PT AND START PLAN OF CARE.
--- NOTE | 2019-10-15 17:11 | NUR ---
GAVE 4MG OF MORHINE FOR PAIN LEVEL OF 6/10. PT DENIES ANY OTHER NEEDS AT THIS TIME. CALL LIGHT IN REACH, NAD NOTED, WILL CONTINUE TO MONITOR.
--- NOTE | 2019-10-15 21:40 | NUR ---
INITIAL ROUNDS AND ASSESSMENT COMPLETED. PT C/O CHEST PRESSURE/PAIN. MEDICATED WITH IV MORPHINE 4MG SIVP TO PIV IN RIGHT A/C. SHALLOW/NONLABORED RESPIRATIONS ON ROOM AIR. AMBULATORY. SR PER TELEMETRY. CPOC.
[2019-10-16] VITALS: BP 183/99
--- NOTE | 2019-10-16 03:50 | NUR ---
PT AWAKENED FOR VITAL SIGNS AND REQUESTED PAIN MEDS FOR HIS CHEST. IV MORPHINE AND IV ZOFRAN GIVEN VIA RFA PIV. PT NOW RESTING. CALL LIGHT IN REACH. CPOC.
[2019-10-16 04:00] VITALS: BP 169/95
[2019-10-16 10:28] LABS: ANION GAP 6.6 mmol/L (8-16); CALCIUM 8.5 mg/dL (8.5-10.1); CARBON DIOXIDE 33.1 mmol/L (21.0-32.0); CHOL - HDL RATIO 3.7 ratio (2.3-4.9); CREATININE - SERUM 1.4 mg/dL (0.6-1.3); POTASSIUM - SERUM 3.7 mmol/L (3.5-5.1)
[2019-10-16 11:09] LABS: BASOPHILS 0.4 % (0-2); HEMATOCRIT 38.3 % (42.0-54.0); HEMOGLOBIN 13.2 g/dL (13.5-17.5); LYMPHOCYTES 21.5 % (15-50); MCH 27.7 pg (26.0-34.0); MCHC 34.5 g/dL (31.0-37.0); MCV 80.3 fL (80.0-100.0); MEAN PLATELET VOLUME 9.5 fL (7.4-10.4); MONOCYTES 5.1 % (2-11); PLATELET COUNT 230 10x3/uL (130-400); RBC 4.77 10x6/uL (4.20-6.10); RDW 12.4 % (11.5-14.5); WBC 4.6 10x3/uL (4.8-10.8)
--- NOTE | 2019-10-16 11:51 | NUR ---
PT TO PHOTOGRAPHIC REPRODUCTION TECHNICIAN.
[2019-10-16 13:23] VITALS: BP 110/60; BP 142/92
--- NOTE | 2019-10-16 16:19 | NUR ---
PROVIDED VERBAL AND WRITTEN DISCHARGE TEACHING REGARDING TEACHING. RT WRIST SITE WITH NO S/S OF BLEEDING OR HEMATOMA. D/C RT AC IV WITH CATHETER TIP INTACT. HEART MONITOR REMOVED AND TAKEN TO DIAMOND SIZER AND GRADER. PT LEFT UNIT WITH ALL BELONGINS, NAD NOTED.
--- NOTE | 2019-10-18 07:58 | OP ---
PATIENT NAME: JAELYN BAKER MEDICAL RECORD: [id number] :64 LOCATION:D.M2 D.2120 ADMISSION DATE:10/14/19 SURGEON: RILEY HOFFMAN MD DATE OF OPERATION: 10/16/2019 PROCEDURE: Left heart catheterization, selective coronary angiography, right radial approach. CATHETERS: Radial sheath, [place] catheter as well as pigtail. Procedure was well tolerated. The patient was returned to the guzmán. Sheath removed. TR band was placed. FINDINGS: Left ventriculography in 30-degree HADDAD view: Normal wall motion and normal systolic function. CORONARY ANATOMY: LEFT MAIN: Left main is free of disease. LAD: Area of previous stenting is widely patent. No evidence of restenosis. No evidence of progression of [place] disease. CIRCUMFLEX: Free of disease. RIGHT CORONARY ARTERY: Free of disease. IMPRESSION: Normal LV systolic function, no evidence of restenosis. TRANSINT:[id number] Voice Confirmation ID: [id number] DOCUMENT ID: [id number] RILEY HOFFMAN MD at 0758 CC: [id number] DICTATION DATE: 10/16/19 1232 SECONDARY SPECIAL EDUCATION TEACHER: 10/16/19 2357 DIS IN 10/16/19 [facility] [address] [place] [address]
--- NOTE | 2019-10-18 07:58 | CN ---
PATIENT NAME:JAELYN BAKER MEDICAL RECORD: [id number] : 64 LOCATION:D. D.2120 ADMIT DATE: 10/14/19 ACCOUNT: [id number] CONSULTING PHYSICIAN: RILEY HOFFMAN MD REFERRING PHYSICIAN: SUMMER CÁRDENAS MD DATE OF CONSULTATION: 10/16/2019 HISTORY OF PRESENT ILLNESS: A 59-year-old gentleman with recent stenting to the LAD approximately 2 months ago, who reports the last week he has had marked chest pain, shortness of breath with exertion to the point he is doubled over, holding his chest. Reports never really bouncing back from most recent intervention. 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 PAST MEDICAL HISTORY: 1. History of hypertension. 2. Hyperlipidemia. ALLERGIES: BENADRYL. MEDICATIONS: Include Flomax 0.4 every day, Plavix 75 every day, metoprolol 100 b.i.d., nifedipine 60 every day, clonidine 0.1 p.r.n., aspirin 81 every day, Celexa 40 every day, HCTZ 25 every day. SOCIAL HISTORY: Nonsmoker, nondrinker. He easily takes care of his ADLs. No set exercise programs. REVIEW OF SYSTEMS: The patient reports easy bruising but reports no swollen glands. The patient reports no fever, no night sweats, no significant weight gain, no significant weight loss. No significant exercise tolerance. The patient reports no dry eyes, no irritation, no vision change. Patient reports no difficulty hearing and no ear pain. Patient reports no frequent nose bleeds or nose and sinus problems. Patient reports on arm pain on exertion. No shortness of breath while lying down. No history of heart murmur. Patient reports no cough, no wheezing or coughing up blood. Patient reports no abdominal pain, no vomiting. Normal appetite. No diarrhea and not vomiting blood. No nausea and no constipation. Patient reports no incontinence. No difficulty urinating. No hematuria. No increased frequency. Patient reports no muscle aches. No weakness, no arthralgias, no back pain. No swelling of the extremities. Patient reports no abnormal mole, no jaundice, no rashes. Reports no loss of consciousness. No weakness and no numbness. No seizures, dizziness, or headaches. The patient reports no depression, no sleep disturbance, feeling safe in a relationship and no alcohol abuse. Patient reports on fatigue. Reports no runny nose or sinus pressure. No itching, no hives, and no frequent sneezing. PHYSICAL EXAMINATION: GENERAL: Middle-aged gentleman in no acute distress, appears stated age. VITAL SIGNS: Blood pressure 169/95, pulse 79 and regular. HEENT: Normocephalic, atraumatic. NECK: No JVD or bruit. HEART: Regular, II/ systolic ejection murmur. LUNGS: Good air excursion. ABDOMEN: Soft, nontender. EXTREMITIES: Pulses 2+. No edema. CONSULT REPORT [id number] JAELYN BAKER DIAGNOSTIC DATA: EKG shows nonspecific ST-T changes laterally. IMPRESSION: Acute coronary syndrome, known history of coronary artery disease. PLAN: For angiography, intervention based on above. TRANSINT:[id number] Voice Confirmation ID: [id number] DOCUMENT ID: [id number] RILEY HOFFMAN MD at 0758 CC: [id number] DICTATION DATE: 10/16/19 120 PERCOLATOR OPERATOR: 10/16/19 2341 DIS IN 10/16/19 [place] [id number] [place] [id number]
== END 2019-10-16 16:20 | disposition home or self-care (01) ==
LOC: D.ER 20:13 → D.EDHOLD 22:43 → D.M2 22:43 → OBSVTIME 22:44 → D.ER 10-15 07:36 → D.EDHOLD 10-15 07:36 → D.M2 10-15 15:42
PROVIDERS: Family Medicine; Internal Medicine Interventional Cardiology; ADMIT Family Medicine; ATTEND Family Medicine
DX: I25.10 Atherosclerotic heart disease of native coronary artery without angina pectoris (principal); R07.9 Chest pain, unspecified; E11.65 Type 2 diabetes mellitus with hyperglycemia; I12.9 Hypertensive chronic kidney disease with stage 1 through stage 4 chronic kidney disease, or unspecified chronic kidney disease; E11.22 Type 2 diabetes mellitus with diabetic chronic kidney disease; N18.9 Chronic kidney disease, unspecified; E78.5 Hyperlipidemia, unspecified

== ENCOUNTER 2020-04-28 19:14 | Emergency (ER) | payer BC ==
[~2020-04-28] VITALS: Ht 188 cm; Wt 90.9 kg
[~2020-04-28 19:14] MED LIST changes: +BENTYL 20 MG TA20 MG PO; +CARAFATE1 G PO; +HEMOCYTE PLUS C1 CAP PO; +HYDROCODONE-AC1 EAC2 PO; +ISOSORBIDE DINI30 MG PO; +K-DUR20 MEQ PO; +LOPRESSOR25 MG PO; +PERCOCET 5-3251 TAB PO; +PROTONIX40 MG PO
[2020-04-28 19:24] VITALS: Ht 188 cm; Wt 90.9 kg
[2020-04-28 19:49] LABS: BASOPHILS 0.2 % (0-2); EOSINOPHILS 3.6 % (0-7); HEMATOCRIT 40.6 % (42.0-54.0); HEMOGLOBIN 13.2 g/dL (13.5-17.5); IMMATURE GRANULOCYTES 0.2 % (0-5); LYMPHOCYTE ABS# 0.88 10x3/uL (1.32-3.57); LYMPHOCYTES 13.7 % (15-50); MCH 24.5 pg (26.0-34.0); MCHC 32.5 g/dL (31.0-37.0); MCV 75.3 fL (80.0-100.0); MEAN PLATELET VOLUME 9.3 fL (7.4-10.4); NEUTROPHIL ABS# 4.96 10x3/uL (1.78-5.38); NEUTROPHILS 77.3 % (40-80); PLATELET COUNT 262 10x3/uL (130-400); RBC 5.39 10x6/uL (4.20-6.10); RDW 15.1 % (11.5-14.5); WBC 6.4 10x3/uL (4.8-10.8)
[2020-04-28 19:57] LABS: CALC OSMOLALITY 279 mosm/kg (275-300); CALCIUM 8.6 mg/dL (8.5-10.1); CARBON DIOXIDE 25.5 mmol/L (21.0-32.0); CHLORIDE - SERUM 102 mmol/L (98-107); CREATININE - SERUM 1.7 mg/dL (0.6-1.3); GLUCOSE 160 mg/dL (74-106); POTASSIUM - SERUM 3.9 mmol/L (3.5-5.1); SODIUM 138 mmol/L (136-145); UREA NITROGEN 16 mg/dL (7-18); eGFR NON AFRICAN AMERICAN 44 mL/min (90-120)
[2020-04-28 20:12] LABS: ALBUMIN 4.3 g/dL (3.4-5.0); ALKALINE PHOSPHATASE 90 U/L (30-120); ALT (SGPT) 32 U/L (10-68); BILIRUBIN - TOTAL 0.47 mg/dL (0.2-1.3); LIPASE 84 U/L (73-393); PROTEIN - SERUM 7.6 g/dL (6.4-8.2); THYROID STIMULATING HORMONE 0.89 uIU/mL (0.36-3.74); TROPONIN-I < 0.017 ng/mL (0.000-0.060)
[2020-04-28 20:41] LABS: BILIRUBIN NEGATIVE (NEGATIVE); KETONE NEGATIVE (NEGATIVE); NITRITE NEGATIVE (NEGATIVE); UROBILINOGEN NORMAL mg/dL (< 2)
[2020-04-28 20:47] LABS: UDS - AMPHET NEGATIVE QUAL (NEGATIVE); UDS - BARB POSITIVE QUAL (NEGATIVE); UDS - BENZO NEGATIVE QUAL (NEGATIVE); UDS - COCAINE NEGATIVE QUAL (NEGATIVE); UDS - OPIATE POSITIVE QUAL (NEGATIVE); UDS - PCP NEGATIVE QUAL (NEGATIVE); UDS - THC NEGATIVE QUAL (NEGATIVE)
[2020-04-28 20:56] LABS: WHITE CELLS - URINE 0-5 HPF (0-1)
[2020-04-28 20:57] LABS: BACTERIA FEW HPF (NONE SEEN); SQUAMOUS EPITHELIAL NONE SEEN HPF (0-4)
[2020-04-28] MEDS ORDERED: LOMOTIL 2.5-0.1 EAC1 PO (21:01)
[2020-04-28 21:33] VITALS: BP 155/101
== END 2020-04-28 21:33 | disposition home or self-care (01) ==
LOC: D.ER 19:14
PROVIDERS: Family Medicine
DX: N28.9 Disorder of kidney and ureter, unspecified (principal); R10.9 Unspecified abdominal pain; I10 Essential (primary) hypertension

== ENCOUNTER 2020-07-11 21:31 | Emergency (ER) | payer BC ==
[~2020-07-11] VITALS: Ht 188 cm; Wt 90.9 kg
[~2020-07-11 21:31] MED LIST changes: +LOMOTIL 2.5-0.1 EAC1 PO
[2020-07-11 21:46] VITALS: Ht 188 cm; Wt 90.9 kg
[2020-07-11] MEDS ORDERED: HYDROCODON-ACE1 EAC7 PO (23:14)
[2020-07-11 23:30] VITALS: BP 147/88
== END 2020-07-11 23:30 | disposition home or self-care (01) ==
LOC: D.ER 21:31
DX: S62.634A Displaced fracture of distal phalanx of right ring finger, initial encounter for closed fracture (principal); X58.XXXA Exposure to other specified factors, initial encounter; I10 Essential (primary) hypertension; Z95.5 Presence of coronary angioplasty implant and graft; Z95.1 Presence of aortocoronary bypass graft; M54.9 Dorsalgia, unspecified

== ENCOUNTER 2020-07-30 07:00 | Inpatient (IN) | payer BC ==
[2020-07-29 11:22] LABS: BASOPHILS 1.1 % (0-2); HEMOGLOBIN 13.1 g/dL (13.5-17.5); LYMPHOCYTES 29.3 % (15-50); MCH 23.7 pg (26.0-34.0); MCHC 32.6 g/dL (31.0-37.0); MCV 72.5 fL (80.0-100.0); MEAN PLATELET VOLUME 7.5 fL (7.4-10.4); MONOCYTES 8.1 % (2-11); NEUTROPHILS 56.5 % (40-80); PLATELET COUNT 243 10x3/uL (130-400); RBC 5.52 10x6/uL (4.20-6.10); RDW 16.9 % (11.5-14.5); WBC 6.2 10x3/uL (4.8-10.8)
[2020-07-29 11:28] LABS: ANION GAP 10.8 mmol/L (8-16); CALCIUM 8.8 mg/dL (8.5-10.1); CARBON DIOXIDE 28.1 mmol/L (21.0-32.0); CREATININE - SERUM 1.5 mg/dL (0.6-1.3); POTASSIUM - SERUM 3.9 mmol/L (3.5-5.1)
[~2020-07-30] VITALS: Ht 188 cm; Wt 98.2 kg
[~2020-07-30 07:00] MED LIST changes: +CYMBALTA60 MG PO; +KLONOPIN1 MG; +METOPROLOL TART50 MG
[2020-07-30 07:19] VITALS: BP 136/84; BMI 27.8
--- NOTE | 2020-07-30 11:40 | NUR ---
NG TUBE IN PLACE VIA AUSCULTATION. ANESTHESIA AT BEDSIDE.
[2020-07-30 12:07] VITALS: BP 128/72
[2020-07-30 15:19] VITALS: BP 128/72; Ht 188 cm; Wt 98.2 kg
[2020-07-30 16:54] VITALS: BP 106/60
[2020-07-31] VITALS (7 sets, daily range): BP systolic 105–170; BP diastolic 51–81
--- NOTE | 2020-07-31 06:05 | NUR ---
I have reviewed this patient and I concur with the Shift Assessment completed by the Licensed Practical Nurse today this shift.
[2020-07-31 06:30] LABS: CALCIUM 7.9 mg/dL (8.5-10.1); CARBON DIOXIDE 29.6 mmol/L (21.0-32.0); CREATININE - SERUM 1.5 mg/dL (0.6-1.3)
[2020-07-31 06:31] LABS: BASOPHILS 0.3 % (0-2); EOSINOPHILS 0 % (0-7); LYMPHOCYTES 14.2 % (15-50); MCH 24.8 pg (26.0-34.0); MCV 72.9 fL (80.0-100.0); MEAN PLATELET VOLUME 8.1 fL (7.4-10.4); MONOCYTES 5.6 % (2-11); NEUTROPHILS 79.9 % (40-80); PLATELET COUNT 216 10x3/uL (130-400); RDW 16.9 % (11.5-14.5)
[2020-07-31 06:32] LABS: POTASSIUM - SERUM 4.6 mmol/L (3.5-5.1)
[2020-07-31 06:41] LABS: HEMATOCRIT 30.6 % (42.0-54.0); HEMOGLOBIN 10.4 g/dL (13.5-17.5); WBC 8.3 10x3/uL (4.8-10.8)
[2020-08-01 04:00] VITALS: BP 176/91
--- NOTE | 2020-08-01 08:10 | NUR ---
PT. RESTING IN BED, NG TUBE TO L. NARE ON LIS. GREENISH DRAINAGE NOTED IN TUBE. 4 LAP SITES TO ABD CLEAN AND INTACT. SCDS ON, IV TO R. HAND INFUSING NS AT 125CC/HR AND dILAUDID STEWARD/STEWARDESS SECOND CLASS. ALERT AND ORIENTED, DENIES ANY PAIN. CL IN REACH, SRUPX2. VISITOR IN ROOM.
[2020-08-01 08:30] LABS: BASOPHILS 0.6 % (0-2); EOSINOPHILS 4.7 % (0-7); HEMATOCRIT 33.2 % (42.0-54.0); LYMPHOCYTES 18.4 % (15-50); MCH 23.9 pg (26.0-34.0); MCV 72.5 fL (80.0-100.0); MEAN PLATELET VOLUME 7.4 fL (7.4-10.4); MONOCYTES 6.6 % (2-11); NEUTROPHILS 69.7 % (40-80); PLATELET COUNT 211 10x3/uL (130-400); RBC 4.58 10x6/uL (4.20-6.10); RDW 16.7 % (11.5-14.5)
[2020-08-01 08:34] LABS: ANION GAP 14.2 mmol/L (8-16); CALCIUM 7.9 mg/dL (8.5-10.1); CARBON DIOXIDE 26.3 mmol/L (21.0-32.0); CREATININE - SERUM 1.3 mg/dL (0.6-1.3)
[2020-08-01 08:35] LABS: POTASSIUM - SERUM 3.5 mmol/L (3.5-5.1)
[2020-08-01 08:44] VITALS: BP 175/87
[2020-08-01 13:01] VITALS: BP 173/95
--- NOTE | 2020-08-01 13:01 | NUR ---
NG TUBE REMOVED PER ORDER. PT TOELRATED WELL. WILL ATTEMPT CLEAR LIQ LUNCH TRAY. VISITOR IN ROOM. CL IN REACH, SR UPX2.
[2020-08-01 16:37] VITALS: BP 171/91
[2020-08-01 20:00] VITALS: BP 160/86
[2020-08-02] VITALS: BP 153/88
[2020-08-02 04:00] VITALS: BP 125/92
--- NOTE | 2020-08-02 08:15 | NUR ---
PATIENT IN BED WITH NO COMPLAINTS OR SIGNS OF DISTRESS. IV INTACT. CALL LIGHT WITHIN REACH.
[2020-08-02 09:39] VITALS: BP 164/99
--- NOTE | 2020-08-02 11:00 | NUR ---
PATIEN TIN BED WITH IV INTACT. NO COMPLAINTS. CALL LIGHT WITHIN REACH.
--- NOTE | 2020-08-02 13:00 | NUR ---
PATIENT UP IN EM AMBULATING WITH FAMILY.
[2020-08-02 13:39] VITALS: BP 154/85
--- NOTE | 2020-08-02 15:29 | NUR ---
PATIENT IN ROOM WITH NO COMPLAINTS. WAITING FOR PHYSICIAN TO ROUND. WANTING TO GO HOME. STATES HE HAS BEEN PASSING GAS AND HAD BMS. IV INTACT. CALL LIGHT WITHIN REACH.
[2020-08-02 18:13] VITALS: BP 182/98
--- NOTE | 2020-08-02 18:45 | NUR ---
PATIENT AMBULATING IN ROOM AT THIS TIME. WANTING TO KNOW WHEN PHYSICIAN WILL BE IN TO SEE HIM. EXPLAINED I DID NOT KNOW. VERBALIZED UNDERSTANDING. NO COMPLAINTS OR SIGNS OF DISTRESS. CALL LIGHT WITHIN REACH.
[2020-08-02 21:05] VITALS: BP 174/102
[2020-08-03 00:44] VITALS: BP 158/88
[2020-08-03 05:56] VITALS: BP 175/98
--- NOTE | 2020-08-03 08:47 | NUR ---
AAOX4 UPON ENTERING, ADMINISTERED IV MEDICATION, TOLERATED WELL. WANTED DILAUDID TURFGRASS MANAGEMENT PROFESSOR SYRINGE REPLACED, ORDER HAS FALLEN OFF, EXPLAINED TO PATIENT. HE ACKNOWLEDGES UNDERSTANDING. DENIES ANY NEEDS AT THIS TIME. BED IN LOWEST POSITION, BED RAILS X2, CALL LIGHT WITHIN REACH. WILL CONTINUE POC. ASSESSMENT PERFORMED
[2020-08-03 09:34] VITALS: BP 157/104
--- NOTE | 2020-08-03 11:27 | NUR ---
IV MEDS GIVEN. DENIES NEEDS AT THIS TIME.
--- NOTE | 2020-08-03 12:45 | NUR ---
STATES, "WHEN I GOT OUT OF BED I ACCIDENTALLY PULLED MY IV OUT OF HAND." CATHETER TIP INTACT, NO BLEEDING. CHANGED LINENS. WILL RESITE IF NEEDED.
[2020-08-03 14:53] VITALS: BP 167/92
[2020-08-03 17:30] VITALS: BP 152/95
--- NOTE | 2020-08-03 17:35 | NUR ---
LAYING IN BED. STILL WAITING ON DR. FORBES. DENIES OTHER NEEDS. WILL CONTINUE POC.
--- NOTE | 2020-08-03 18:22 | NUR ---
SIGNED ALL NECESSARY DISCHARGE PAPERWORK. ESCORTED OUT VIA WHEELCHAIR. HOME WITH FAMILY. DENIES FURTHER NEEDS FROM HOSPITAL/STAFF
--- NOTE | 2020-08-03 19:01 | MORECARE ---
CASE MANAGEMENT DISCHARGE SUMMARY PATIENT: JAELYN BAKER UNIT: [id number] ADM DATE: 07/30/20 AGE: 60 : 64 SEX: M ROOM/BED: D.2215 AUTHOR: DOLORES,DOC PHYSICIAN: REFERRING PHYSICIAN: HEBERT ÁCRDENAS MD DATE OF SERVICE: 08/03/20 Case Management Discharge Planning Summary COMMENTS ENTERED DATE: 08/03/20 18:56 CT COMMENT TYPE: Discharge Planning REVIEWER: Jessie Davies CM spoke with patient to complete discharge plan and discuss needs. Patient states he lives at home with his , Nadine Baker who will provide transportation after his discharge. Patient states he is independent with all ADLs and feels that it is safe to discharge home with no additional services. Patient states he will be able to waste picker his medications at [facility] pharmacy after discharge and will be able to pay for them. His home has running water and electricity. CM discussed availability of home health, rehab services, and medical equipment. Patient declined HHS, SNF, IPR, and DME. CM will continue to follow and assist as needed. DCP REVIEW SUMMARY ANTICIPATED D/C DATE: 08/03/2020 EXPECTED LOS : 4 CASE STATUS: DCP Complete INITIAL REVIEW: 07/30/2020 INITIAL REVIEWER: Jessie Davies FINAL DISCHARGE DISPOSITION: : FINAL REVIEWER: Jessie Davies FINAL REVIEW DATE: DCP Focus Questions & Answers DCP Screen QUESTION: ANSWER High Risk Factors: : None Walking limitation: Patient stated self rated walking limitation present? : No Age: : 45 - 64 Prior living environment: : Lives Alone Disability ranking: : Grade 1: No significant disability DCP Evaluation QUESTION: ANSWER Patient's ability to cope with chronic illness : d. No chronic illness Would patient like to participate in any Care Coordination programs (if applicable): : Not applicable Mental health screen: : No mental health history DCP Re-evaluation QUESTION: ANSWER Would patient like to participate in any Care Coordination programs (if applicable): : Not applicable PATIENT: JAELYN BAKER ENCOUNTER: [id number] MEDICAL RECORD#: [id number] ADMISSION DATE: 07/30/2020 DISCHARGE DATE: 08/03/2020 ATTENDING MD: HEBERT BELTRAN : AGE: 60 MARITAL STATUS: M DC PLAN ID: [id number] FACILITY: [facility] PRINTED ON: 08/03/20 19:01 CT All edits/amendments must be made on the electronic document DICTATION DATE: 08/03/201900 CUSTOMER INSIGHT ANALYST: LOLIS 08/03/201900 RPT#: [id number] DC DATE:08/03/20 STATUS: DIS IN [facility] [address] [place] [address] END OF REPORT
--- NOTE | 2020-08-03 19:11 | MORECARE ---
CASE MANAGEMENT DISCHARGE SUMMARY PATIENT: JAELYN BAKER UNIT: [id number] ADM DATE: 07/30/20 AGE: 60 : 64 SEX: M ROOM/BED: D.2215 AUTHOR: DOLORES,DOC PHYSICIAN: REFERRING PHYSICIAN: HEBERT CÁRDENAS MD DATE OF SERVICE: 08/03/20 Case Management Discharge Planning Summary COMMENTS ENTERED DATE: 08/03/20 18:56 CT COMMENT TYPE: Discharge Planning REVIEWER: Jessie Davies CM spoke with patient to complete discharge plan and discuss needs. Patient states he lives at home with his , Nadine Baker who will provide transportation after his discharge. Patient states he is independent with all ADLs and feels that it is safe to discharge home with no additional services. Patient states he will be able to peanut picker his medications at [facility] pharmacy after discharge and will be able to pay for them. His home has running water and electricity. CM discussed availability of home health, rehab services, and medical equipment. Patient declined HHS, SNF, IPR, and DME. CM will continue to follow and assist as needed. DCP REVIEW SUMMARY ANTICIPATED D/C DATE: 08/03/2020 EXPECTED LOS : 4 CASE STATUS: DCP Complete INITIAL REVIEW: 07/30/2020 INITIAL REVIEWER: Jessie Davies FINAL DISCHARGE DISPOSITION: : FINAL REVIEWER: Jessie Davies FINAL REVIEW DATE: DCP Focus Questions & Answers DCP Screen QUESTION: ANSWER High Risk Factors: : None Walking limitation: Patient stated self rated walking limitation present? : No Age: : 45 - 64 Prior living environment: : Lives Alone Disability ranking: : Grade 1: No significant disability DCP Evaluation QUESTION: ANSWER Patient's ability to cope with chronic illness : d. No chronic illness Patient's current cognitive status: : Alert Family / Caregiver's ability to cope with chronic illness: : a. Adequate (ability to meet patient's medical needs, ensures patient attends medical appts.) Patient and/or caregiver agree upon recommended discharge plan? : Yes Physical Status: : Independent with ADL's Family / Caregiver's ability to cope with chronic illness: : b. Minimal (occasionally not dependable to meet pt's. needs, can meet pt's. basic ADL's) Functional screen assessment: : Basic needs can adequately be met by self Does the patient have the ability to pay for or attain post discharge needs / services? : Yes Living Arrangements: : Home with Spouse/Significant Other Is there a likelihood that the patient will require additional services to return to the preadmission environment? : No Equipment needed for post hospitalization: : None Baseline cognitive status: : *Oriented to person, place, situation, time and present Living arrangements comments: : home with Patient with capacity for self-care or can be cared for in same environment as prior to hospitalization? : Yes Results of this evaluation have been discussed with: : Patient Medication Management: : Patient states can afford medications Pharmacy name(s): : [facility] [address] Does Patient have transportation to get home and to follow-up medical appointments when discharged from the hospital? : Yes Would patient like to participate in any Care Coordination programs (if applicable): : Not applicable Does the patient have electricity at home? : Yes Does the patient have running water in their house? : Yes Equipment in use: : None Mental health screen: : No mental health history DCP Re-evaluation QUESTION: ANSWER Would patient like to participate in any Care Coordination programs (if applicable): : Not applicable PATIENT: JAELYN BAKER ENCOUNTER: [id number] MEDICAL RECORD#: [id number] ADMISSION DATE: 07/30/2020 DISCHARGE DATE: 08/03/2020 ATTENDING MD: HEBERT BELTRAN : AGE: 60 MARITAL STATUS: M DC PLAN ID: [id number] FACILITY: [facility] PRINTED ON: 08/03/20 19:11 CT All edits/amendments must be made on the electronic document DICTATION DATE: 08/03/201910 SHOTWELD OPERATOR: LOLIS 08/03/201910 RPT#: [id number] DC DATE:08/03/20 STATUS: DIS IN [facility] [address] [place] [address] END OF REPORT
--- NOTE | 2020-08-04 09:18 | MORECARE ---
CASE MANAGEMENT DISCHARGE SUMMARY PATIENT: JAELYN BAKER UNIT: [id number] ADM DATE: 07/30/20 AGE: 60 : 64 SEX: M ROOM/BED: D.2215 AUTHOR: DOLORES,DOC PHYSICIAN: REFERRING PHYSICIAN: HEBERT CÁRDENAS MD DATE OF SERVICE: 08/04/20 Case Management Discharge Planning Summary COMMENTS ENTERED DATE: 08/04/20 9:10 CT COMMENT TYPE: Discharge Planning REVIEWER: Jose Cummings Late Entry for 03 August 2020. Patient called to report dissatisfaction with hospital care. CM notified housekeeper/custodian/laundry worker of patient's complaint. CM will continue to follow and will assist as needed with dc plans/needs ENTERED DATE: 08/03/20 18:56 CT COMMENT TYPE: Discharge Planning REVIEWER: Jessie Davies CM spoke with patient to complete discharge plan and discuss needs. Patient states he lives at home with his , Nadine Baker who will provide transportation after his discharge. Patient states he is independent with all ADLs and feels that it is safe to discharge home with no additional services. Patient states he will be able to picker packer his medications at [facility] pharmacy after discharge and will be able to pay for them. His home has running water and electricity. CM discussed availability of home health, rehab services, and medical equipment. Patient declined HHS, SNF, IPR, and DME. CM will continue to follow and assist as needed. DCP REVIEW SUMMARY ANTICIPATED D/C DATE: 08/03/2020 EXPECTED LOS : 4 CASE STATUS: DCP Complete INITIAL REVIEW: 07/30/2020 INITIAL REVIEWER: Jessie Davies FINAL DISCHARGE DISPOSITION: : FINAL REVIEWER: Jessie Davies FINAL REVIEW DATE: DCP Focus Questions & Answers DCP Screen QUESTION: ANSWER High Risk Factors: : None Walking limitation: Patient stated self rated walking limitation present? : No Age: : 45 - 64 Prior living environment: : Lives Alone Disability ranking: : Grade 1: No significant disability DCP Evaluation QUESTION: ANSWER Patient and/or caregiver agree upon recommended discharge plan? : Yes Family / Caregiver's ability to cope with chronic illness: : a. Adequate (ability to meet patient's medical needs, ensures patient attends medical appts.) Patient's current cognitive status: : Alert Patient's ability to cope with chronic illness : d. No chronic illness Does the patient have the ability to pay for or attain post discharge needs / services? : Yes Functional screen assessment: : Basic needs can adequately be met by self Family / Caregiver's ability to cope with chronic illness: : b. Minimal (occasionally not dependable to meet pt's. needs, can meet pt's. basic ADL's) Physical Status: : Independent with ADL's Equipment needed for post hospitalization: : None Is there a likelihood that the patient will require additional services to return to the preadmission environment? : No Living Arrangements: : Home with Spouse/Significant Other Results of this evaluation have been discussed with: : Patient Patient with capacity for self-care or can be cared for in same environment as prior to hospitalization? : Yes Living arrangements comments: : home with Baseline cognitive status: : *Oriented to person, place, situation, time and present Medication Management: : Patient states can afford medications Pharmacy name(s): : [facility] Does Patient have transportation to get home and to follow-up medical appointments when discharged from the hospital? : Yes Would patient like to participate in any Care Coordination programs (if applicable): : Not applicable Does the patient have electricity at home? : Yes Does the patient have running water in their house? : Yes Equipment in use: : None Mental health screen: : No mental health history DCP Re-evaluation QUESTION: ANSWER Would patient like to participate in any Care Coordination programs (if applicable): : Not applicable PATIENT: JAELYN BAKER ENCOUNTER: [id number] MEDICAL RECORD#: [id number] ADMISSION DATE: 07/30/2020 DISCHARGE DATE: 08/03/2020 ATTENDING MD: HEBERT BELTRAN : AGE: 60 MARITAL STATUS: M DC PLAN ID: [id number] FACILITY: [facility] PRINTED ON: 08/04/20 9:18 CT All edits/amendments must be made on the electronic document DICTATION DATE: 08/04/20917 OIL EXPLORATION ENGINEER: LOLIS 08/04/20917 RPT#: [id number] DC DATE:08/03/20 STATUS: DIS IN [facility] [address] [facility] [place] [address] END OF REPORT
--- NOTE | 2020-08-04 11:20 | DS ---
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 PROCEDURE: Laparoscopic gastrojejunostomy. OTHER DIAGNOSES: Hypertension, gout, gastroesophageal reflux disease. HOSPITAL COURSE: The patient was admitted with surgery. He underwent the above operative procedure. Postoperatively, his pain was controlled. His diet was advanced. He was dismissed home. Prior to dismissal his name fell off the computer rounding list and this delayed his dismissal. He is being dismissed home on [employer] as well as [employer]. He is to follow up with Dr. Taylor in 2-3 weeks in the office. Discharge instructions were given to the patient verbally by me. He was instructed to call for any severe nausea, vomiting, fever, chills, chest pain or shortness of breath. TRANSINT:[id number] Voice Confirmation ID: [id number] DOCUMENT ID: [id number] LYLE FORBES MD at 1120 CC: [id number] DICTATION DATE: 08/03/20 180 BEHAVIORIST: 08/03/20 9282 DIS IN 08/03/20 [facility] [address] [place] [address]
[2020-08-04] MEDS ORDERED: OMEPRAZOLE20 M1 PO (18:35)
[2020-08-04] MEDS ORDERED: HYDROCODON-ACE1 EAC7 PO (18:35)
[2020-08-04] MEDS ORDERED: ZOFRAN4 MG PO (18:36)
--- NOTE | 2020-08-05 14:49 | OP ---
PATIENT NAME: JAELYN BAKER MEDICAL RECORD: [id number] :64 LOCATION:D.MS [address]2215 ADMISSION DATE:07/30/20 SURGEON: SANTIAGO CÁRDENAS MD DATE OF OPERATION: 07/30/2020 PREOPERATIVE DIAGNOSES: 1. 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 2. Peptic ulcer disease. 3. Hypertension. 4. Gout. 5. Gastroesophageal reflux disease. POSTOPERATIVE DIAGNOSES: 1. 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 2. Peptic ulcer disease. 3. Hypertension. 4. Gout. 5. Gastroesophageal reflux disease. PROCEDURE: Laparoscopic gastrojejunostomy. SURGEON: Santiago Cárdenas MD DESCRIPTION OF PROCEDURE: The patient's abdomen was prepped and draped in sterile fashion. A Veress needle was inserted in the left upper quadrant and the abdomen was insufflated. A 5-mm Visiport trocar was inserted in the midline just above the umbilicus. Under direct visualization, we could see the Veress needle and there was no sign of any injury to bowel or surrounding structures. This was then removed on the left lateral abdomen. A skin incision was made and then a 12-mm trocar was inserted under direct visualization. A 5-mm trocar was then placed in between these 2 trocars under direct visualization. With these, we were able to manipulate the bowel. I could see the patient's stomach and small bowel. There did not appear to be any masses or lesions present. We found the area about 25 cm distal to the ligament of Treitz and brought up this loop of small bowel over top of the transverse colon. We rested this on the inferior aspect of the body of the stomach. A 0 Ti-Cron times 3 were used to attach the posterior wall of the small bowel to the inferior aspect of the body of the stomach. We then made an enterotomy and a gastrotomy using electrocautery and inserted a 75 green load Endo-BRANDO stapler. With this, we were able to perform a yewe-oh-znrn anastomosis of the stomach to the jejunum. The enterotomy was then closed off with a 75 green load Endo-BRANDO stapler fire. This appeared to close up the gastrotomy and enterotomies. We then oversewed the suture lines using multiple interrupted 2-0 Ti-Cron. At the conclusion of the case, there were no signs of any active bleeding. The patient had NG tube indwelling and this appeared to be in good position. At this point, the 12-mm trocar site fascia was closed with an 0 Vicryl using a Cale-Nicola suture passer device. The ports and insufflation were then removed. The skin incisions were infused with 10 mL of 0.25% Marcaine with epinephrine and then closed with subcutaneous 5-0 Monocryl. COMPLICATIONS: None. CONDITION: Stable. ANESTHESIA: General endotracheal and local. OPERATIVE REPORT [id number] JAELYN BAKER BLOOD LOSS: Minimal. TRANSINT:[id number] Voice Confirmation ID: [id number] DOCUMENT ID: [id number] SANTIAGO CÁRDENAS MD at 1449 CC: ANATOLIY NORRIS and KASEY MCMAHON DO [id number] DICTATION DATE: 07/30/20 1125 INDUSTRY OPERATIONS INVESTIGATOR: 07/30/20 1150 DIS IN 08/03/20 [facility] [address] [place] [address]
== END 2020-08-03 18:23 | disposition home or self-care (01) | DRG 328 ==
LOC: D.OPS 07:00 → D.MS 11:21 → D.OPS 12:08 → D.MS 08-03 18:23
PROVIDERS: ADMIT Surgery; ATTEND Surgery
PROC: 0D164ZA Bypass Stomach to Jejunum, Percutaneous Endoscopic Approach (ICD-10-PCS; principal; 2020-07-30 09:15)
DX: K31.5 Obstruction of duodenum (principal); K31.1 Adult hypertrophic pyloric stenosis; K27.9 Peptic ulcer, site unspecified, unspecified as acute or chronic, without hemorrhage or perforation; I10 Essential (primary) hypertension; M10.9 Gout, unspecified; K21.9 Gastro-esophageal reflux disease without esophagitis

== ENCOUNTER → 2020-08-04 | Emergency (ER) | payer BC ==
[~2020-08-04] VITALS: Ht 188 cm; Wt 93.2 kg
[~2020-08-04] MED LIST changes: +OMEPRAZOLE20 M1 PO; +ZOFRAN4 MG PO
[2020-08-04 18:31] VITALS: Ht 188 cm; Wt 93.2 kg
[2020-08-04 19:14] LABS: WBC 4.6 10x3/uL (4.8-10.8)
[2020-08-04 19:15] LABS: BASOPHILS 0.9 % (0-2); EOSINOPHILS 13.8 % (0-7); HEMATOCRIT 32.4 % (42.0-54.0); HEMOGLOBIN 10.7 g/dL (13.5-17.5); LYMPHOCYTES 29.3 % (15-50); MCH 24.3 pg (26.0-34.0); MCHC 33.1 g/dL (31.0-37.0); MCV 73.6 fL (80.0-100.0); MEAN PLATELET VOLUME 7.6 fL (7.4-10.4); MONOCYTES 8.1 % (2-11); NEUTROPHILS 47.9 % (40-80); RDW 17.2 % (11.5-14.5)
[2020-08-04 19:18] LABS: APTT 30.3 SECONDS (22.8-39.4); INR 1.18 (0.85-1.17); PLATELET COUNT 264 10x3/uL (130-400); PROTIME 13.9 SECONDS (11.6-15.0)
[2020-08-04 19:23] LABS: ANION GAP 13.5 mmol/L (8-16); CALCIUM 8.6 mg/dL (8.5-10.1); CARBON DIOXIDE 26.6 mmol/L (21.0-32.0); CREATININE - SERUM 1.5 mg/dL (0.6-1.3); POTASSIUM - SERUM 3.1 mmol/L (3.5-5.1)
[2020-08-04 19:30] LABS: ALBUMIN 3.6 g/dL (3.4-5.0); BILIRUBIN - TOTAL 0.4 mg/dL (0.2-1.3); MAGNESIUM - SERUM 1.9 mg/dL (1.8-2.4); PROTEIN - SERUM 6.7 g/dL (6.4-8.2)
[2020-08-04 22:00] VITALS: BP 137/97
== END | disposition home or self-care (01) ==
LOC: D.ER 18:20
PROVIDERS: Family Medicine
DX: R10.30 Lower abdominal pain, unspecified (principal); D64.9 Anemia, unspecified; I10 Essential (primary) hypertension; E87.6 Hypokalemia; Z95.5 Presence of coronary angioplasty implant and graft

== ENCOUNTER → 2020-08-14 12:59 | Outpatient (CLI) | payer BC ==
[2020-08-04 18:31] VITALS: BMI 26.3
[2020-08-14 13:19] LABS: BASOPHILS 0.8 % (0-2); EOSINOPHILS 5.7 % (0-7); HEMATOCRIT 33.7 % (42.0-54.0); LYMPHOCYTES 31.3 % (15-50); MCHC 32.7 g/dL (31.0-37.0); MCV 73.3 fL (80.0-100.0); MEAN PLATELET VOLUME 7.2 fL (7.4-10.4); MONOCYTES 7.8 % (2-11); NEUTROPHILS 54.4 % (40-80); PLATELET COUNT 291 10x3/uL (130-400); RBC 4.61 10x6/uL (4.20-6.10); RDW 16.6 % (11.5-14.5); WBC 5.2 10x3/uL (4.8-10.8)
[2020-08-14 13:33] LABS: ALBUMIN 3.9 g/dL (3.4-5.0); ANION GAP 9.8 mmol/L (8-16); BILIRUBIN - TOTAL 0.56 mg/dL (0.2-1.3); CALCIUM 8.2 mg/dL (8.5-10.1); CARBON DIOXIDE 29.4 mmol/L (21.0-32.0); CREATININE - SERUM 1.6 mg/dL (0.6-1.3); POTASSIUM - SERUM 4.2 mmol/L (3.5-5.1); PROTEIN - SERUM 7.1 g/dL (6.4-8.2)
== END | disposition home or self-care (01) ==
LOC: D.CT 12:59
PROVIDERS: ATTEND Surgery
DX: R10.9 Unspecified abdominal pain (principal); R50.9 Fever, unspecified; Z98.890 Other specified postprocedural states

== ENCOUNTER 2020-08-15 14:28 | Emergency (ER) | payer BC ==
[~2020-08-15] VITALS: Ht 188 cm; Wt 90.9 kg
[2020-08-15 14:37] VITALS: Ht 188 cm; Wt 90.9 kg
[2020-08-15 15:12] LABS: BASOPHILS 0.8 % (0-2); EOSINOPHILS 6.1 % (0-7); HEMATOCRIT 32.7 % (42.0-54.0); HEMOGLOBIN 10.8 g/dL (13.5-17.5); LYMPHOCYTES 27.4 % (15-50); MCH 24.1 pg (26.0-34.0); MEAN PLATELET VOLUME 7.3 fL (7.4-10.4); MONOCYTES 7.7 % (2-11); PLATELET COUNT 295 10x3/uL (130-400); RBC 4.48 10x6/uL (4.20-6.10); RDW 16.7 % (11.5-14.5)
[2020-08-15 15:18] LABS: CALC OSMOLALITY 284 mosm/kg (275-300); CALCIUM 8.3 mg/dL (8.5-10.1); CARBON DIOXIDE 28.3 mmol/L (21.0-32.0); CHLORIDE - SERUM 104 mmol/L (98-107); CREATININE - SERUM 1.6 mg/dL (0.6-1.3); GLUCOSE 142 mg/dL (74-106); POTASSIUM - SERUM 4.3 mmol/L (3.5-5.1); SODIUM 141 mmol/L (136-145); UREA NITROGEN 19 mg/dL (7-18); eGFR NON AFRICAN AMERICAN 47 mL/min (90-120)
[2020-08-15 15:26] LABS: ALKALINE PHOSPHATASE 64 U/L (30-120); BILIRUBIN - TOTAL 0.35 mg/dL (0.2-1.3); PROTEIN - SERUM 7.2 g/dL (6.4-8.2)
[2020-08-15 15:30] LABS: ALT (SGPT) 25 U/L (10-68); LIPASE 99 U/L (73-393); TROPONIN-I < 0.017 ng/mL (0.000-0.060)
[2020-08-15 16:58] VITALS: BP 151/86
== END 2020-08-15 16:59 | disposition home or self-care (01) ==
LOC: D.ER 14:28
PROVIDERS: Emergency Medicine
DX: R11.2 Nausea with vomiting, unspecified (principal); R07.9 Chest pain, unspecified; I10 Essential (primary) hypertension